=== PATIENT | male | born 1965 | race Caucasian/White ===

== ENCOUNTER 2016-09-02 08:07 | Observation (INO) | payer OTHER ==
[2016-09-02] MEDS ORDERED: SODIUM CHLORIDE 0.9% 500 ML IV STA (08:50)
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
[2016-09-02 09:16] LABS: Basophils # (A) 0.1 k/uL (0-0.2); Basophils % (A) 1 %; CH 33.4; CHCM 34.8; Eosinophils # (A) 0.2 k/uL (0-0.7); Eosinophils % (A) 3 %; HCT 38.4 % (39.0-53.0); HDW 2.34; Luc # (Auto) 0.14; Luc % (Auto) 2; Lymphocytes # (A) 2.2 k/uL (1.0-4.8); Lymphocytes % (A) 38 %; MCH 32.7 pg (25.0-35.0); MCHC 33.9 g/dL (31.0-37.0); MCV 96.3 fL (80.0-100.0); Mean Platelet Volume 8.3; Monocytes # (A) 0.4 k/uL (0-1.0); Monocytes % (A) 6 %; Neutrophils # (A) 2.9 k/uL (1.3-7.7); Neutrophils % (A) 50 %; RBC 3.99 m/uL (4.30-5.90); RDW 12.6 % (11.5-15.5); WBC 5.7 k/uL (3.8-10.6); WBC (Perox) 5.67
[2016-09-02 09:25] LABS: ALT 65 U/L (21-72); AST 55 U/L (17-59); Acetaminophen <10.0 ug/mL; Alcohol <10 mg/dL; Alkaline Phosphatase 104 U/L (38-126); Anion Gap 10 mmol/L; Blood Urea Nitrogen 28 mg/dL (9-20); Calcium 8.7 mg/dL (8.4-10.2); Carbon Dioxide 28 mmol/L (22-30); Chloride 110 mmol/L (98-107); Glucose 92 mg/dL (74-99); Non-African American GFR(MDRD) >60 (>60 ml/min/1.73 sqM); Salicylate <1.0 mg/dL; Sodium 148 mmol/L (137-145); Total Bilirubin 0.5 mg/dL (0.2-1.3); Total Protein 6.6 g/dL (6.3-8.2)
[2016-09-02] MEDS ORDERED: NALOXONE 0.4 MG/ML 1 ML VIAL IV STA (10:58)
[2016-09-02] MEDS ORDERED: NALOXONE 0.4 MG/ML 1 ML VIAL IV PRN (12:03)
[2016-09-02] MEDS ORDERED: ACETAMINOPHEN TAB 325 MG TAB PO PRN (12:03)
[2016-09-02] MEDS ORDERED: DOCUSATE 100 MG CAP PO PRN (12:06)
[2016-09-02] MEDS ORDERED: ALBUTEROL NEBULIZED 2.5 MG/3 ML INHALATION PRN (12:06)
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
[2016-09-02 19:47] VITALS: BMI 23.0
[2016-09-02] MEDS ORDERED: lamoTRIgine 25 MG TAB PO SCH (21:00)
[2016-09-03] MEDS ORDERED: hydrOXYzine HCL 50 MG/ML 1 ML VIAL IM PRN (00:45)
[2016-09-03 06:34] LABS: CHCM 33.5; HCT 40.7 % (39.0-53.0); HDW 2.41; HGB 13.6 gm/dL (13.0-17.5); Immature Gran Flag Marked; MCHC 33.3 g/dL (31.0-37.0); MCV 99.2 fL (80.0-100.0); Mean Platelet Volume 7.6; RBC 4.11 m/uL (4.30-5.90); RDW 12.7 % (11.5-15.5); WBC 9.1 k/uL (3.8-10.6)
[2016-09-03 06:46] LABS: ALT 56 U/L (21-72); AST 35 U/L (17-59); Alkaline Phosphatase 86 U/L (38-126); Anion Gap 7 mmol/L; Blood Urea Nitrogen 20 mg/dL (9-20); Calcium 8.5 mg/dL (8.4-10.2); Carbon Dioxide 29 mmol/L (22-30); Chloride 106 mmol/L (98-107); Glucose 131 mg/dL (74-99); Non-African American GFR(MDRD) >60 (>60 ml/min/1.73 sqM); Potassium 4.3 mmol/L (3.5-5.1); Sodium 142 mmol/L (137-145); Total Bilirubin 0.7 mg/dL (0.2-1.3)
[2016-09-03 07:47] VITALS: PULSE 86
[2016-09-03 08:11] LABS: Add Differential Manual Differential
[2016-09-03 08:19] LABS: Band Neutrophils % 41.5 %; Nucleated Red Blood Cells 0 /100 WBC (0-0); Total Cells Counted 200
[2016-09-03 08:24] LABS: Toxic Granulation Present; Toxic Vacuolation Present
[2016-09-03 08:25] LABS: Large Platelets Present
[2016-09-03] MEDS ORDERED: PANTOPRAZOLE 40 MG TABLET PO SCH (09:00)
--- NOTE | 2016-09-03 11:52 | P.DS ---
Providers Date of admission: 09/02/16 12:03 Expected date of discharge: 09/03/16 Attending physician: Johnny Maynard Consults: Psychiatry Primary care physician: oJhnny Maynard [facility] Course: Pablito is a 51-year-old white male, well known to me, who has a history of groin nerve entrapment. He has an extensive psychiatric history as well. He frequently obsesses about the pain in his groin, which she seen multiple surgeons for, and is unable to be alleviated. Pablito indicates he became very depressed about pain yesterday and took 12 Dexedrine, 12 Valium, and 12 morphine pills. In the emergency room. Given him naloxone, which greatly improved his sedation. He is able to speak with me at this time he denies any significant complaints at this time. Overnight on the floor he remained rather sedate until late in the evening. He then became slightly agitated was given some Vistaril to help him sleep. This morning he is still a bit somnolent, but answering questions. Psych services she was ready for him to be transferred now that he is medicalyl stable. Final diagnosis. Acute drug overdose, polysubstance. Bipolar depression exacerbation with suicidal ideation. Groin nerve entrapment. Chronic pain syndrome Patient Condition at Discharge: Fair Plan - Discharge Summary Discharge Medication List Albuterol Inhaler [Ventolin Hfa Inhaler] 2 puff INHALATION RT-Q6H PRN 12/22/15 [ History] Omeprazole [PriLOSEC] 20 mg PO AC-BID 12/22/15 [History] Docusate [Colace] 100 mg PO DAILY PRN #0 cap 03/22/16 [Rx] lamoTRIgine [LaMICtal] 50 mg PO HS #60 tab 03/27/16 [Rx] Acetaminophen Tab [Tylenol] 650 mg PO Q6HR PRN #0 tab 09/03/16 [Rx] Follow up Appointment(s)/Referral(s): Johnny Maynard MD [Primary Care Provider] - 1-2 days Sebastian Johnson MD [STAFF PHYSICIAN] - 09/04/16 Discharge Disposition: TRANSFER TO PSYCH HOSP/UNIT
[2016-09-03 11:55] VITALS: BP 102/55; RESP 14; TEMP 98.4
== END 2016-09-03 14:05 ==
LOC: EC 08:07 → 3OBS 12:03
PROVIDERS: ADMIT Family Medicine; ATTEND Family Medicine
DX: T43.622A Poisoning by amphetamines, intentional self-harm, initial encounter (principal); T42.4X2A Poisoning by benzodiazepines, intentional self-harm, initial encounter; T40.2X2A Poisoning by other opioids, intentional self-harm, initial encounter; G58.9 Mononeuropathy, unspecified; G89.4 Chronic pain syndrome; R45.1 Restlessness and agitation; F31.9 Bipolar disorder, unspecified; F90.9 Attention-deficit hyperactivity disorder, unspecified type; K21.9 Gastro-esophageal reflux disease without esophagitis; M79.7 Fibromyalgia; F17.200 Nicotine dependence, unspecified, uncomplicated; Z79.891 Long term (current) use of opiate analgesic; Z79.899 Other long term (current) drug therapy; Z88.1 Allergy status to other antibiotic agents; Z88.0 Allergy status to penicillin; Z88.2 Allergy status to sulfonamides; Z88.8 Allergy status to other drugs, medicaments and biological substances; Z65.3 Problems related to other legal circumstances
CPT/HCPCS: 99285; 96374; 96361 ×2; 36415; 94640; 93005; 80053 ×2; 84443; 85025 ×2; 80306; 83520 ×2; 80320; G0378 ×2; J2310

== ENCOUNTER 2016-09-03 10:16 | Inpatient (IN) | payer MEDICAID ==
[2016-09-03] MEDS ORDERED: MAG HYDROX/AL HYDROX/SIMETH 30 ML CUP PO PRN (15:28)
[2016-09-03] MEDS ORDERED: ACETAMINOPHEN TAB 325 MG TAB PO PRN (15:28)
[2016-09-03] MEDS ORDERED: ZIPRASIDONE 20 MG VIAL IM PRN (15:28)
[2016-09-03] MEDS ORDERED: MAGNESIUM HYDROXIDE 2,400 MG/10 ML CUP PO PRN (15:28)
[2016-09-03] MEDS: NICOTINE 21MG/24HR PATCH TRANSDERM SCH (16:00)
[2016-09-03 18:10] VITALS: BMI 23.3
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
[2016-09-04] MEDS: NICOTINE 21MG/24HR PATCH TRANSDERM SCH (07:58)
[2016-09-04] MEDS: PANTOPRAZOLE 40 MG TABLET PO SCH (07:58)
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
[2016-09-04] MEDS: ALBUTEROL INHALER 60 PUFF/8 GM INHALER INHALATION PRN ×2 (17:01→21:22)
[2016-09-04] MEDS ORDERED: OLANZapine ODT 5 MG TAB PO SCH (21:00)
[2016-09-04 21:40] LABS: Appearance,Urine Clear (Clear); Bilirubin,Urine Negative (Negative); Glucose,Urine (UA) 1+ (Negative); Ketones,Urine Negative (Negative); Leukocyte Esterase,Urine Negative (Negative); Nitrite,Urine Negative (Negative); PH, Urine 7.5 (5.0-8.0); Protein,Urine Negative (Negative); Specific Gravity,Urine 1.006 (1.001-1.035); UA Billing (MACRO vs. MICRO) CHEM; Urobilinogen,Urine <2.0 mg/dL (<2.0)
[2016-09-05 05:40] VITALS: BP 141/88; PULSE 103; RESP 20; TEMP 99.6
[2016-09-05] MEDS: NICOTINE 21MG/24HR PATCH TRANSDERM SCH (08:21)
[2016-09-05] MEDS: PANTOPRAZOLE 40 MG TABLET PO SCH (08:21)
[2016-09-05] MEDS ORDERED: buPROPion SR 100 MG TABLET.ER PO SCH (09:00)
[2016-09-05] MEDS: ALBUTEROL INHALER 60 PUFF/8 GM INHALER INHALATION PRN (09:30)
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
== END 2016-09-05 12:36 | disposition home or self-care (01) | DRG 897 ==
LOC: 3MHU 14:06
PROVIDERS: ADMIT Psychiatry & Neurology Psychiatry; ATTEND Psychiatry & Neurology Psychiatry
DX: F19.29 Other psychoactive substance dependence with unspecified psychoactive substance-induced disorder (principal); F22 Delusional disorders; F32.9 Major depressive disorder, single episode, unspecified; F41.0 Panic disorder [episodic paroxysmal anxiety]; F90.9 Attention-deficit hyperactivity disorder, unspecified type; F45.9 Somatoform disorder, unspecified; R25.3 Fasciculation; N48.89 Other specified disorders of penis; F41.9 Anxiety disorder, unspecified; K21.9 Gastro-esophageal reflux disease without esophagitis; R30.0 Dysuria; N50.819 Testicular pain, unspecified; G89.29 Other chronic pain; Z87.11 Personal history of peptic ulcer disease; Z79.899 Other long term (current) drug therapy; Z88.1 Allergy status to other antibiotic agents; Z88.0 Allergy status to penicillin; Z88.2 Allergy status to sulfonamides; Z88.8 Allergy status to other drugs, medicaments and biological substances; Z91.5 Personal history of self-harm; Z87.828 Personal history of other (healed) physical injury and trauma; Z87.438 Personal history of other diseases of male genital organs; Z56.0 Unemployment, unspecified; Z86.59 Personal history of other mental and behavioral disorders; Z76.5 Malingerer [conscious simulation]
CPT/HCPCS: 81003; 84439; 84443; 84481; 94640

== ENCOUNTER 2016-11-27 12:30 | Emergency (ER) | payer OTHER ==
[2016-11-27 13:10] VITALS: RESP 18
[2016-11-27] MEDS ORDERED: ACETAMINOPHEN TAB 500 MG TAB PO STA (13:21)
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
--- NOTE | 2016-11-27 13:40 | XR ---
EXAMINATION TYPE: XR chest 2V DATE OF EXAM: 11/27/2016 1:32 PM COMPARISON: 03/21/2016 TECHNIQUE: PA and lateral views submitted. HISTORY: Difficulty breathing FINDINGS: The lungs are clear and there is no pneumothorax, pleural effusion, or focal pneumonia. Mild hypert rophic change of the spine. Surgical clips in the abdomen noted. No overt failure IMPRESSION: 1. No acute process.
[2016-11-27 13:47] LABS: Appearance,Urine Clear (Clear); Bilirubin,Urine Negative (Negative); Glucose,Urine (UA) Negative (Negative); Ketones,Urine Negative (Negative); Leukocyte Esterase,Urine Negative (Negative); Nitrite,Urine Negative (Negative); Protein,Urine Negative (Negative); Specific Gravity,Urine 1.002 (1.001-1.035); UA Billing (MACRO vs. MICRO) CHEM; Urobilinogen,Urine <2.0 mg/dL (<2.0)
[2016-11-27 16:21] VITALS: BP 116/69; PULSE 87; TEMP 97.6
== END 2016-11-27 16:28 | disposition home or self-care (01) ==
LOC: EC 12:30
DX: F10.120 Alcohol abuse with intoxication, uncomplicated (principal); K21.9 Gastro-esophageal reflux disease without esophagitis; M79.7 Fibromyalgia; F90.9 Attention-deficit hyperactivity disorder, unspecified type; F31.9 Bipolar disorder, unspecified; Z79.891 Long term (current) use of opiate analgesic; Z79.899 Other long term (current) drug therapy; Z88.0 Allergy status to penicillin; Z88.1 Allergy status to other antibiotic agents; Z88.2 Allergy status to sulfonamides; Z88.8 Allergy status to other drugs, medicaments and biological substances
CPT/HCPCS: 71020; 80306; 81003; 82075; 93005; 99284

== ENCOUNTER 2017-09-02 03:00 | Emergency (ER) | payer OTHER ==
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
--- NOTE | 2017-09-02 07:41 | US ---
EXAMINATION TYPE: US venous doppler duplex LE RT DATE OF EXAM: 09/02/2017 7:33 AM COMPARISON: NONE CLINICAL HISTORY: Pain. SIDE PERFORMED: Right TECHNIQUE: The lower extremity deep venous system is examined utilizing real time linear array sonog rubi with graded compression, doppler sonography and color-flow sonography. VESSELS IMAGED: External Iliac Vein (EIV) Common Femoral Vein Deep Femoral Vein Greater Saphenous Vein * Femoral Vein Popliteal Vein Small Saphenous Vein * Proximal Calf Veins (* superficial vessels) Right Leg: Negative for DVT No popliteal fossa lesion is seen. IMPRESSION: THIS EXAMINATION IS NEGATIVE FOR DVT WITHIN THE RIGHT LEG.
[2017-09-02 07:49] VITALS: BP 139/90; PULSE 84; RESP 18; TEMP 98.2
== END 2017-09-02 10:13 | disposition home or self-care (01) ==
LOC: EC 03:00
DX: S51.812A Laceration without foreign body of left forearm, initial encounter (principal); F10.120 Alcohol abuse with intoxication, uncomplicated; M79.661 Pain in right lower leg; K21.9 Gastro-esophageal reflux disease without esophagitis; F32.9 Major depressive disorder, single episode, unspecified; F90.9 Attention-deficit hyperactivity disorder, unspecified type; F17.200 Nicotine dependence, unspecified, uncomplicated; Z79.899 Other long term (current) drug therapy; Z88.0 Allergy status to penicillin; Z88.1 Allergy status to other antibiotic agents; Z88.2 Allergy status to sulfonamides; Z88.8 Allergy status to other drugs, medicaments and biological substances; X78.9XXA Intentional self-harm by unspecified sharp object, initial encounter
CPT/HCPCS: 82075; 99285

== ENCOUNTER 2017-09-21 19:13 | Emergency (ER) | payer OTHER ==
[2017-09-21] MEDS ORDERED: SODIUM CHLORIDE 0.9% 2,000 ML IV ONE (19:42)
[2017-09-21] MEDS ORDERED: LORazepam 2 MG/ML INJ IM STA (19:42)
[2017-09-21] MEDS ORDERED: diphenhydrAMINE 50 MG/ML 1 ML VIAL IM STA (19:42)
[2017-09-21] MEDS ORDERED: HALOPERIDOL LACTATE 5 MG/ML 1 ML VIAL IM ONE (19:42)
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
[2017-09-21 20:37] LABS: Appearance,Urine Clear (Clear); Basophils % (A) 0 %; Bilirubin,Urine Negative (Negative); Blood,Urine Negative (Negative); Color,Urine Light Yellow; Eosinophils # (A) 0.1 k/uL (0-0.7); Eosinophils % (A) 1 %; Glucose,Urine (UA) Negative (Negative); HCT 45.4 % (39.0-53.0); HGB 15.4 gm/dL (13.0-17.5); Ketones,Urine Negative (Negative); Leukocyte Esterase,Urine Negative (Negative); Lymphocytes # (A) 2.5 k/uL (1.0-4.8); Lymphocytes % (A) 21 %; MCH 32.2 pg (25.0-35.0); MCHC 33.9 g/dL (31.0-37.0); MCV 94.9 fL (80.0-100.0); Monocytes # (A) 0.6 k/uL (0-1.0); Monocytes % (A) 5 %; Neutrophils # (A) 8.4 k/uL (1.3-7.7); Neutrophils % (A) 71 %; Nitrite,Urine Negative (Negative); PH, Urine 5.5 (5.0-8.0); Platelet Count 215 k/uL (150-450); Protein,Urine Negative (Negative); RBC 4.78 m/uL (4.30-5.90); RDW 12.9 % (11.5-15.5); Specific Gravity,Urine 1.009 (1.001-1.035); Urobilinogen,Urine <2.0 mg/dL (<2.0); WBC 11.8 k/uL (3.8-10.6)
[2017-09-21 20:46] LABS: Cocaine Screen,Urine Not Detected (NotDetected); Phencyclidine Screen,Urine Not Detected (NotDetected); Urn Cannabinoid Scrn Not Detected (NotDetected)
[2017-09-21 20:47] LABS: Amphetamine Screen,Urine Detected (NotDetected); Barbiturate Screen,Urine Not Detected (NotDetected); Benzodiazepines Screen,Urine Not Detected (NotDetected); Methadone Screen, Urine Not Detected (NotDetected); Opiate Screen,Urine Not Detected (NotDetected); Oxycodone Screen, Urine Not Detected (NotDetected); Tricyclic Antidepressant,Urine Not Detected (NotDetected)
[2017-09-21] MEDS ORDERED: LORazepam 2 MG/ML INJ IV STA (20:52)
[2017-09-21] MEDS ORDERED: diphenhydrAMINE 50 MG/ML 1 ML VIAL IVP STA (20:52)
[2017-09-21 20:54] LABS: Anion Gap 15 mmol/L; Blood Urea Nitrogen 22 mg/dL (9-20); Calcium 9.5 mg/dL (8.4-10.2); Carbon Dioxide 24 mmol/L (22-30); Chloride 103 mmol/L (98-107); Creatine Kinase 276 U/L (55-170); Glucose 98 mg/dL (74-99); Potassium 4.3 mmol/L (3.5-5.1); Sodium 142 mmol/L (137-145)
--- NOTE | 2017-09-21 21:56 | CT ---
EXAMINATION TYPE: CT brain wo con DATE OF EXAM: 09/21/2017 COMPARISON: 03/21/2016 HISTORY: ams, unable to obtain hx CT DLP: 1482.8 mGycm Automated exposure control for dose reduction was used. FINDINGS: Ventricles have normal size. There is no mass effect nor midline shift. There is no sign of intracran ial hemorrhage. The calvarium is intact. IMPRESSION: NEGATIVE CT SCAN OF THE BRAIN. NO CHANGE.
[2017-09-21 22:25] VITALS: RESP 16
[2017-09-22 01:44] VITALS: BP 151/80; PULSE 70; TEMP 98.2
== END 2017-09-22 02:11 | disposition home or self-care (01) ==
LOC: EC 19:13
DX: F19.10 Other psychoactive substance abuse, uncomplicated (principal); R41.82 Altered mental status, unspecified; S31.030A Puncture wound without foreign body of lower back and pelvis without penetration into retroperitoneum, initial encounter; S00.91XA Abrasion of unspecified part of head, initial encounter; F10.129 Alcohol abuse with intoxication, unspecified; F90.9 Attention-deficit hyperactivity disorder, unspecified type; R00.0 Tachycardia, unspecified; F41.9 Anxiety disorder, unspecified; F30.2 Manic episode, severe with psychotic symptoms; K21.9 Gastro-esophageal reflux disease without esophagitis; F17.200 Nicotine dependence, unspecified, uncomplicated; Z79.899 Other long term (current) drug therapy; Z88.0 Allergy status to penicillin; Z88.1 Allergy status to other antibiotic agents; Z88.8 Allergy status to other drugs, medicaments and biological substances; X58.XXXA Exposure to other specified factors, initial encounter; Z53.8 Procedure and treatment not carried out for other reasons
CPT/HCPCS: 82075; 51798 ×2; 36415; 80048; 84443; 82550; 85025; 81003; 80306; 70450; 99285; 96374; 96375; 96361; J2060; J1200

== ENCOUNTER 2017-10-21 15:51 | Emergency (ER) | payer OTHER ==
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
[2017-10-21 19:20] LABS: Amphetamine Screen,Urine Detected (NotDetected); Barbiturate Screen,Urine Not Detected (NotDetected); Benzodiazepines Screen,Urine Not Detected (NotDetected); Cocaine Screen,Urine Not Detected (NotDetected); Methadone Screen, Urine Not Detected (NotDetected); Opiate Screen,Urine Not Detected (NotDetected); Oxycodone Screen, Urine Not Detected (NotDetected); Phencyclidine Screen,Urine Not Detected (NotDetected); Tricyclic Antidepressant,Urine Not Detected (NotDetected); Urn Cannabinoid Scrn Not Detected (NotDetected)
[2017-10-21 23:05] VITALS: BP 145/91; PULSE 100; RESP 18; TEMP 97
== END 2017-10-21 23:04 | disposition home or self-care (01) ==
LOC: EC 15:51
DX: F32.9 Major depressive disorder, single episode, unspecified (principal); F19.10 Other psychoactive substance abuse, uncomplicated; F10.10 Alcohol abuse, uncomplicated; K21.9 Gastro-esophageal reflux disease without esophagitis; F17.200 Nicotine dependence, unspecified, uncomplicated; Z88.0 Allergy status to penicillin; Z88.1 Allergy status to other antibiotic agents; Z88.2 Allergy status to sulfonamides; Z88.8 Allergy status to other drugs, medicaments and biological substances; Z79.899 Other long term (current) drug therapy
CPT/HCPCS: 80306; 82075; 99285

== ENCOUNTER 2017-12-23 22:56 | Emergency (ER) | payer OTHER ==
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
[2017-12-24 00:20] LABS: Amphetamine Screen,Urine Detected (NotDetected); Barbiturate Screen,Urine Not Detected (NotDetected); Benzodiazepines Screen,Urine Detected (NotDetected); Cocaine Screen,Urine Not Detected (NotDetected); Methadone Screen, Urine Not Detected (NotDetected); Opiate Screen,Urine Not Detected (NotDetected); Oxycodone Screen, Urine Not Detected (NotDetected); Phencyclidine Screen,Urine Not Detected (NotDetected); Tricyclic Antidepressant,Urine Not Detected (NotDetected); Urn Cannabinoid Scrn Detected (NotDetected)
[2017-12-24] MEDS ORDERED: LORazepam 2 MG/ML INJ IM STA (00:36)
[2017-12-24] MEDS ORDERED: ZIPRASIDONE 20 MG VIAL IM STA (02:12)
[2017-12-24 12:25] LABS: Basophils % (A) 0 %; Eosinophils # (A) 0.2 k/uL (0-0.7); Eosinophils % (A) 2 %; HCT 46.7 % (39.0-53.0); HGB 15.9 gm/dL (13.0-17.5); Lymphocytes # (A) 2.1 k/uL (1.0-4.8); Lymphocytes % (A) 19 %; MCH 32.4 pg (25.0-35.0); MCV 95.5 fL (80.0-100.0); Mean Platelet Volume 7.4; Monocytes # (A) 0.6 k/uL (0-1.0); Monocytes % (A) 6 %; Neutrophils # (A) 7.9 k/uL (1.3-7.7); Neutrophils % (A) 72 %; Platelet Count 226 k/uL (150-450); RBC 4.89 m/uL (4.30-5.90); RDW 13.4 % (11.5-15.5)
[2017-12-24 12:25] LABS: Appearance,Urine Clear (Clear); Bilirubin,Urine Negative (Negative); Blood,Urine Negative (Negative); Color,Urine Colorless; Glucose,Urine (UA) Negative (Negative); Ketones,Urine Negative (Negative); Leukocyte Esterase,Urine Negative (Negative); Nitrite,Urine Negative (Negative); Protein,Urine Negative (Negative); Specific Gravity,Urine 1.003 (1.001-1.035); Urobilinogen,Urine <2.0 mg/dL (<2.0)
[2017-12-24 12:36] LABS: ALT 51 U/L (21-72); AST 39 U/L (17-59); Albumin 4.6 g/dL (3.5-5.0); Alkaline Phosphatase 116 U/L (38-126); Anion Gap 15 mmol/L; Blood Urea Nitrogen 18 mg/dL (9-20); Calcium 9.4 mg/dL (8.4-10.2); Carbon Dioxide 24 mmol/L (22-30); Chloride 106 mmol/L (98-107); Glucose 91 mg/dL (74-99); Potassium 4.7 mmol/L (3.5-5.1); Sodium 145 mmol/L (137-145); Total Bilirubin 0.4 mg/dL (0.2-1.3); Total Protein 7.1 g/dL (6.3-8.2)
[2017-12-24 19:12] VITALS: BP 152/81; PULSE 82; RESP 16; TEMP 99
== END 2017-12-24 20:00 ==
LOC: EC 22:56
DX: F32.9 Major depressive disorder, single episode, unspecified (principal); R45.851 Suicidal ideations; F10.120 Alcohol abuse with intoxication, uncomplicated; K21.9 Gastro-esophageal reflux disease without esophagitis; F90.9 Attention-deficit hyperactivity disorder, unspecified type; F17.200 Nicotine dependence, unspecified, uncomplicated; Z79.899 Other long term (current) drug therapy; Z88.0 Allergy status to penicillin; Z88.1 Allergy status to other antibiotic agents; Z88.2 Allergy status to sulfonamides; Z88.8 Allergy status to other drugs, medicaments and biological substances
CPT/HCPCS: 82075; 36415; 80053; 85025; 81003; 80306; 99285; 96372 ×2; J2060; J3486

== ENCOUNTER 2018-02-27 21:38 | Emergency (ER) | payer OTHER ==
[2018-02-27] MEDS ORDERED: LORazepam 2 MG/ML INJ IM STA ×2 (21:59→23:18)
[2018-02-27 23:11] LABS: Appearance,Urine Clear (Clear); Bilirubin,Urine Negative (Negative); Blood,Urine Negative (Negative); Color,Urine Colorless; Glucose,Urine (UA) Negative (Negative); Ketones,Urine Negative (Negative); Leukocyte Esterase,Urine Trace (Negative); Nitrite,Urine Negative (Negative); Protein,Urine Negative (Negative); RBC,Urine 1 /hpf (0-5); Specific Gravity,Urine 1.005 (1.001-1.035); Urobilinogen,Urine <2.0 mg/dL (<2.0); WBC,Urine 3 /hpf (0-5)
[2018-02-27 23:19] LABS: Amphetamine Screen,Urine Detected (NotDetected); Barbiturate Screen,Urine Not Detected (NotDetected); Benzodiazepines Screen,Urine Not Detected (NotDetected); Cocaine Screen,Urine Not Detected (NotDetected); Methadone Screen, Urine Not Detected (NotDetected); Opiate Screen,Urine Not Detected (NotDetected); Oxycodone Screen, Urine Not Detected (NotDetected); Phencyclidine Screen,Urine Not Detected (NotDetected); Tricyclic Antidepressant,Urine Not Detected (NotDetected); Urn Cannabinoid Scrn Detected (NotDetected)
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
--- NOTE | 2018-02-28 00:20 | CT ---
EXAMINATION TYPE: CT brain maeylin wo con DATE OF EXAM: 02/28/2018 COMPARISON: 09/21/2017 and 05/19/2016 HISTORY: Prior on synapse, ETOH< AMS CT DLP: 1661.50 mGycm Automated exposure control for dose reduction was used. TECHNIQUE: CT scan of the head and cervical spine are performed without contrast. FINDINGS: Ventricles and sulci appear normal. There is no mass effect nor midline shift. There is n o sign of intracranial hemorrhage. The calvarium is intact. The cervical vertebra have normal alignment. There is degenerative disc space 9 from C4 to C7 with sp urring of the endplates. Facet joints are intact. These all base is intact. IMPRESSION: Spondylotic changes in the cervical spine. No fracture. Negative CT scan of the brain. No change.
[2018-02-28] MEDS ORDERED: ZIPRASIDONE 20 MG VIAL IM STA (02:00)
[2018-02-28 02:23] VITALS: TEMP 98.1
[2018-02-28] MEDS ORDERED: LORazepam 2 MG/ML INJ IM STA (02:24)
[2018-02-28 08:11] VITALS: BP 126/82; PULSE 68; RESP 16
== END 2018-02-28 08:06 | disposition home or self-care (01) ==
LOC: EC 21:38
DX: F10.129 Alcohol abuse with intoxication, unspecified (principal); R41.82 Altered mental status, unspecified; M79.7 Fibromyalgia; K21.9 Gastro-esophageal reflux disease without esophagitis; N40.0 Benign prostatic hyperplasia without lower urinary tract symptoms; F90.9 Attention-deficit hyperactivity disorder, unspecified type; F31.9 Bipolar disorder, unspecified; F17.200 Nicotine dependence, unspecified, uncomplicated; Z79.899 Other long term (current) drug therapy; Z88.0 Allergy status to penicillin; Z88.2 Allergy status to sulfonamides; Z88.1 Allergy status to other antibiotic agents; Z88.8 Allergy status to other drugs, medicaments and biological substances; Z53.8 Procedure and treatment not carried out for other reasons
CPT/HCPCS: 82075; 81001; 80306; 72125; 70450; 99285; 96372 ×3; J2060 ×2

== ENCOUNTER 2018-02-28 17:26 | Emergency (ER) | payer OTHER ==
[2018-02-28 17:41] VITALS: RESP 18
--- NOTE | 2018-02-28 18:08 | XR ---
EXAMINATION TYPE: XR shoulder complete LT DATE OF EXAM: 02/28/2018 COMPARISON: NONE HISTORY: Pain TECHNIQUE: 4 views FINDINGS: I see no fracture nor dislocation. Joint spaces are normal. There are no pathologic calcifi cations. IMPRESSION: Negative left shoulder exam.
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
[2018-02-28 18:38] VITALS: BP 139/94; PULSE 97; TEMP 98.4
== END 2018-02-28 18:36 | disposition home or self-care (01) ==
LOC: EC 17:26
DX: S46.912A Strain of unspecified muscle, fascia and tendon at shoulder and upper arm level, left arm, initial encounter (principal); K21.9 Gastro-esophageal reflux disease without esophagitis; F90.9 Attention-deficit hyperactivity disorder, unspecified type; F17.200 Nicotine dependence, unspecified, uncomplicated; Z79.899 Other long term (current) drug therapy; Z88.0 Allergy status to penicillin; Z88.1 Allergy status to other antibiotic agents; Z88.2 Allergy status to sulfonamides; Z88.8 Allergy status to other drugs, medicaments and biological substances; X58.XXXA Exposure to other specified factors, initial encounter
CPT/HCPCS: 99283

== ENCOUNTER 2018-06-21 10:33 | Emergency (ER) | payer OTHER ==
[2018-06-21] MEDS ORDERED: SODIUM CHLORIDE 0.9% 1,000 ML IV STA (10:47)
[2018-06-21] MEDS ORDERED: KETOROLAC 30 MG/ML 1 ML VIAL IVP STA (10:48)
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
[2018-06-21 11:06] LABS: Basophils # (A) 0.1 k/uL (0-0.2); Basophils % (A) 1 %; Eosinophils # (A) 0.2 k/uL (0-0.7); Eosinophils % (A) 2 %; HCT 48.3 % (39.0-53.0); HGB 16.1 gm/dL (13.0-17.5); Lymphocytes # (A) 2.6 k/uL (1.0-4.8); Lymphocytes % (A) 22 %; MCH 32.6 pg (25.0-35.0); MCHC 33.4 g/dL (31.0-37.0); MCV 97.5 fL (80.0-100.0); Mean Platelet Volume 7.4; Monocytes # (A) 0.7 k/uL (0-1.0); Monocytes % (A) 6 %; Neutrophils # (A) 7.7 k/uL (1.3-7.7); Neutrophils % (A) 68 %; Platelet Count 201 k/uL (150-450); RBC 4.95 m/uL (4.30-5.90); RDW 13.2 % (11.5-15.5); WBC 11.4 k/uL (3.8-10.6)
[2018-06-21 11:13] LABS: ALT 61 U/L (21-72); AST 30 U/L (17-59); Albumin 4.2 g/dL (3.5-5.0); Alcohol <10 mg/dL; Alkaline Phosphatase 111 U/L (38-126); Anion Gap 9 mmol/L; Blood Urea Nitrogen 24 mg/dL (9-20); Calcium 9.2 mg/dL (8.4-10.2); Carbon Dioxide 22 mmol/L (22-30); Chloride 109 mmol/L (98-107); Glucose 105 mg/dL (74-99); Lipase 63 U/L (23-300); Phosphorus 2.7 mg/dL (2.5-4.5); Potassium 4.2 mmol/L (3.5-5.1); Sodium 140 mmol/L (137-145); Total Bilirubin 0.6 mg/dL (0.2-1.3); Total Protein 7.1 g/dL (6.3-8.2)
[2018-06-21 11:26] LABS: Appearance,Urine Clear (Clear); Bilirubin,Urine Negative (Negative); Blood,Urine Trace (Negative); Color,Urine Yellow; Glucose,Urine (UA) Trace (Negative); Hyaline Casts,Urine 3 /lpf (0-2); Ketones,Urine Negative (Negative); Leukocyte Esterase,Urine Negative (Negative); Mucus,Urine Occasional /hpf; Nitrite,Urine Negative (Negative); PH, Urine 5.5 (5.0-8.0); Protein,Urine Trace (Negative); RBC,Urine 1 /hpf (0-5); Specific Gravity,Urine 1.023 (1.001-1.035); Squamous Epithelial Cell,Urine <1 /hpf (0-4); WBC,Urine 2 /hpf (0-5)
[2018-06-21 11:29] LABS: Creatine Kinase 250 U/L (55-170)
[2018-06-21 11:41] LABS: Creatine Kinase MB 1.2 ng/mL (0.0-2.4); Troponin I <0.012 ng/mL (0.000-0.034)
--- NOTE | 2018-06-21 12:31 | CT ---
EXAMINATION TYPE: CT abdomen pelvis wo con DATE OF EXAM: 06/21/2018 COMPARISON: 12/15/2015 INDICATION: Right flank pain DLP: 736.1 mGycm, Automated exposure control for dose reduction was used. CONTRAST: 0 mL of Isovue 300. Study performed without Oral Contrast TECHNIQUE: Axial images were obtained from above the diaphragm to the pubic rami in the axial plane a t 5 mm thick sections. Reconstructed images are reviewed on the computer in the coronal plane. FINDINGS: Limited CT sections are obtained the lung bases. The lung bases are clear. CT ABDOMEN: Liver: Normal Spleen: Normal Pancreas: Normal Adrenal glands: The adrenal glands are normal. Gallbladder: Surgically absent Kidneys: No masses are evident. No hydronephrosis is present. No cysts are present. No renal stone s are evident. No hydroureter is identified. Aorta: Vascular calcification is within the aorta. Inferior vena cava: Normal. CT PELVIS: Loops of bowel within the abdomen and pelvis are normal. There are loops of bowel which are incom pletely distended or lack oral contrast limiting their evaluation. Appendix: Normal as visualized. Urinary bladder: Decompressed with limited evaluation. No suspicious calcifications evident. Genitourinary structures: Prostate is slightly prominent with calcification. Osseous structures: No suspicious lytic or sclerotic lesions. COMPARISON: Previous left hydronephrosis is not evident. Previous left renal stones are not identifie d. IMPRESSIONS: 1. No suspicious anomaly to account for hematuria.
[2018-06-21 13:10] VITALS: BP 117/86; PULSE 84; RESP 16; TEMP 98
== END 2018-06-21 13:09 | disposition home or self-care (01) ==
LOC: EC 10:33
DX: R10.31 Right lower quadrant pain (principal); R30.0 Dysuria; R11.2 Nausea with vomiting, unspecified; K21.9 Gastro-esophageal reflux disease without esophagitis; F90.9 Attention-deficit hyperactivity disorder, unspecified type; F17.200 Nicotine dependence, unspecified, uncomplicated; Z79.899 Other long term (current) drug therapy; Z88.0 Allergy status to penicillin; Z88.1 Allergy status to other antibiotic agents; Z88.8 Allergy status to other drugs, medicaments and biological substances; Z88.2 Allergy status to sulfonamides; Z90.49 Acquired absence of other specified parts of digestive tract
CPT/HCPCS: 36415; 93005; 80053; 82550; 82553; 83690; 83735; 84100; 84484; 85025; 81001; 87086; 74176; 99285; 96374; 96361; G0480; J1885; 80320

== ENCOUNTER 2018-08-17 16:10 | Emergency (ER) | payer OTHER ==
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
[2018-08-17 17:46] LABS: Amphetamine Screen,Urine Detected (NotDetected); Barbiturate Screen,Urine Not Detected (NotDetected); Benzodiazepines Screen,Urine Not Detected (NotDetected); Cocaine Screen,Urine Not Detected (NotDetected); Methadone Screen, Urine Not Detected (NotDetected); Opiate Screen,Urine Not Detected (NotDetected); Oxycodone Screen, Urine Not Detected (NotDetected); Phencyclidine Screen,Urine Not Detected (NotDetected); Tricyclic Antidepressant,Urine Not Detected (NotDetected); Urn Cannabinoid Scrn Detected (NotDetected)
[2018-08-17 18:30] VITALS: RESP 20
[2018-08-17 21:38] VITALS: TEMP 98.3
[2018-08-17 23:03] VITALS: BP 132/65; PULSE 81
== END 2018-08-17 23:01 | disposition home or self-care (01) ==
LOC: EC 16:10
DX: F31.9 Bipolar disorder, unspecified (principal); F10.129 Alcohol abuse with intoxication, unspecified; K21.9 Gastro-esophageal reflux disease without esophagitis; F90.9 Attention-deficit hyperactivity disorder, unspecified type; F17.200 Nicotine dependence, unspecified, uncomplicated; N40.0 Benign prostatic hyperplasia without lower urinary tract symptoms; Z79.899 Other long term (current) drug therapy; Z88.0 Allergy status to penicillin; Z88.1 Allergy status to other antibiotic agents; Z88.8 Allergy status to other drugs, medicaments and biological substances; Z88.2 Allergy status to sulfonamides; Z98.890 Other specified postprocedural states
CPT/HCPCS: 80306; 82075; 99284

== ENCOUNTER 2018-08-26 18:58 | Emergency (ER) | payer OTHER ==
[2018-08-26 19:45] VITALS: TEMP 98.5
[2018-08-26 23:21] LABS: Appearance,Urine Clear (Clear); Bilirubin,Urine Negative (Negative); Blood,Urine Trace (Negative); Color,Urine Yellow; Glucose,Urine (UA) Negative (Negative); Ketones,Urine Negative (Negative); Leukocyte Esterase,Urine Negative (Negative); Mucus,Urine Rare /hpf; Nitrite,Urine Negative (Negative); PH, Urine 5.5 (5.0-8.0); Protein,Urine Trace (Negative); RBC,Urine 3 /hpf (0-5); Specific Gravity,Urine 1.027 (1.001-1.035); Urobilinogen,Urine <2.0 mg/dL (<2.0); WBC,Urine 1 /hpf (0-5)
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
[2018-08-26 23:53] VITALS: BP 149/94; PULSE 87; RESP 18
== END 2018-08-26 23:51 | disposition home or self-care (01) ==
LOC: EC 18:58
DX: R30.0 Dysuria (principal); N48.89 Other specified disorders of penis; K21.9 Gastro-esophageal reflux disease without esophagitis; F90.9 Attention-deficit hyperactivity disorder, unspecified type; F17.200 Nicotine dependence, unspecified, uncomplicated; Z87.438 Personal history of other diseases of male genital organs; Z79.899 Other long term (current) drug therapy; Z88.0 Allergy status to penicillin; Z88.8 Allergy status to other drugs, medicaments and biological substances; Z88.2 Allergy status to sulfonamides; Z88.1 Allergy status to other antibiotic agents
CPT/HCPCS: 81001; 99283

== ENCOUNTER 2018-10-22 14:18 | Inpatient (IN) | payer MEDICAID, OTHER ==
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
[2018-10-22] MEDS ORDERED: LORazepam 1 MG TAB PO STA (15:02)
[2018-10-22 15:35] LABS: Amphetamine Screen,Urine Detected (NotDetected); Barbiturate Screen,Urine Not Detected (NotDetected); Benzodiazepines Screen,Urine Not Detected (NotDetected); Cocaine Screen,Urine Not Detected (NotDetected); Methadone Screen, Urine Not Detected (NotDetected); Opiate Screen,Urine Not Detected (NotDetected); Oxycodone Screen, Urine Not Detected (NotDetected); Phencyclidine Screen,Urine Not Detected (NotDetected); Tricyclic Antidepressant,Urine Not Detected (NotDetected); Urn Cannabinoid Scrn Detected (NotDetected)
[2018-10-22 23:20] VITALS: BMI 28.9
[2018-10-23] MEDS ORDERED: ZIPRASIDONE 20 MG VIAL IM PRN (00:30)
[2018-10-23] MEDS ORDERED: MAGNESIUM HYDROXIDE 2,400 MG/10 ML CUP PO PRN (00:30)
[2018-10-23] MEDS ORDERED: LORazepam 2 MG/ML INJ IM PRN (00:34)
[2018-10-23] MEDS: NICOTINE 14MG/24HR PATCH TRANSDERM SCH (06:16)
[2018-10-23] MEDS: LORazepam 1 MG TAB PO PRN (06:16)
[2018-10-23] MEDS: FAMOTIDINE 20 MG TAB PO SCH ×2 (06:17→20:18)
[2018-10-23] MEDS: ACETAMINOPHEN TAB 325 MG TAB PO PRN (06:17)
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
[2018-10-23] MEDS: ARIPiprazole 10 MG TAB PO SCH (09:59)
--- NOTE | 2018-10-23 13:54 | P.CONS ---
History of Present Illness - Reason for Consult Consult date: 10/23/18 Medical management of pain - History of Present Illness This is a 53-year-old white male patient well known to me. He has obsessive thoughts regarding testicular pain and often feels persecuted and spine on by others. He indicates he bought a half gallon of vodka and proceeded to drink some of it. His daughter then the had him transported to the emergency room to be evaluated after he started saying he wanted to kill himself. He's had numerous psychiatric admissions. Currently he is doing better and is now sober up. He tells me the right is having knee pain on the lateral edge of both knees. He denies any other complaints. Of note, since he's been on a change in psych meds over the past year, noticed a significant weight gain in him. This medication since been discontinued. Currently denies any significant symptomatology other than the wish not to be alive. Review of Systems All systems: negative Past Medical History Past Medical History: Fibromyalgia, GERD/Reflux, Prostate Disorder Additional Past Medical History / Comment(s): hiatal hernia, ADHD, nerve entrapment R groin , migraines, sinus problems, History of Any Multi-Drug Resistant Organisms: None Reported Past Surgical History: Cholecystectomy, Hernia Repair, Orthopedic Surgery Additional Past Surgical History / Comment(s): Umbilical hernia repair, colonoscopy, sigmoidoscopy, R leg surgery x2, ORIF jaw, ORIF L femur, glass removed from L eye, bilateral testicular surgery. Past Anesthesia/Blood Transfusion Reactions: No Reported Reaction Past Psychological History: ADD/ADHD, Bipolar, Depression Smoking Status: Current every day smoker Past Alcohol Use History: Daily Additional Past Alcohol Use History / Comment(s): Last alcoholic drink was in September of 2015 .Last drink was today 10/22/18 Past Drug Use History: Marijuana Additional Drug Use History / Comment(s): Pt. reports a past history of marijuana use. - Past Family History Father Family Medical History: CVA/TIA Mother Additional Family Medical History / Comment(s): Hiatal Hernia Brother(s) Family Medical History: Cancer, Musculoskeletal Disorder Additional Family Medical History / Comment(s): Heart Problems Sister(s) Family Medical History: Cancer Medications and Allergies Home Medications Medication Instructions Recorded Confirmed Type Ranitidine HCl [Zantac] 150 mg PO BID 06/21/18 10/22/18 History Dextroamphetamine Sulfate 5 mg PO DAILY 08/17/18 10/22/18 History [Dexedrine] Allergies Allergy/AdvReac Type Severity Reaction Status Date / Time amoxicillin trihydrate Allergy Unknown Verified 10/22/18 14:36 [From Augmentin] mirtazapine [From Remeron] Allergy Unknown Verified 10/22/18 14:36 Penicillins Allergy Unknown Verified 10/22/18 14:36 potassium clavulanate Allergy Unknown Verified 10/22/18 14:36 [From Augmentin] pregabalin [From Lyrica] Allergy Unknown Verified 10/22/18 14:36 sulfamethoxazole Allergy Anaphylaxis Verified 10/22/18 14:36 [From Bactrim] trimethoprim [From Bactrim] Allergy Anaphylaxis Verified 10/22/18 14:36 erythromycin lactobionate AdvReac Abdominal Verified 10/22/18 14:36 [From Erythrocin] Pain lurasidone [From Latuda] AdvReac Unknown Verified 10/22/18 23:01 olanzapine [From Zyprexa] AdvReac Unknown Verified 10/22/18 14:36 tamsulosin HCl [From Flomax] AdvReac very Verified 10/22/18 14:36 painful erection Physical Exam Vitals: Vital Signs Temp Pulse Pulse Pulse Resp BP BP 10/23/18 04:34 98.6 F 82 15 140/78 10/22/18 23:08 97.9 F 91 18 10/22/18 22:35 93 19 130/83 10/22/18 18:49 95 18 132/84 10/22/18 17:30 96 18 120/69 10/22/18 15:20 122/81 10/22/18 14:27 98.6 F 130 H 19 140/107 BP Pulse Ox 10/23/18 04:34 10/22/18 23:08 136/82 10/22/18 22:35 95 10/22/18 18:49 96 10/22/18 17:30 94 L 10/22/18 15:20 10/22/18 14:27 96 General: The patient is awake and alert, in no distress, and does not appear acutely ill. He appears heavier than he had last year. Eye: Pupils are equal, round and reactive to light, extra-ocular movements are intact; there is normal conjunctiva bilaterally. Ears, nose, mouth and throat: There are moist mucous membranes and no oral lesions. TM and canals were not examined Neck: The neck is supple, there is no thyromegaly, lymphadenopathy, tenderness or JVD. Cardiovascular: S1S2 is normal, There is a regular rate and rhythm. No murmur, rub or gallop is appreciated. Respiratory: Lungs are clear to auscultation bilaterally, respirations are non-labored, breath sounds are equal. Gastrointestinal: Soft, non-distended, non-tender abdomen without masses or organomegaly noted. There is no rebound or guarding present. Bowel sounds are unremarkable. Back: There is no tenderness to palpation in the midline. There is no obvious deformity. Musculoskeletal: Normal ROM, There is no pedal edema. There is no calf te nderness or swelling. No cords were appreciated. There is pain to palpation over the lateral knee area. Neurological: CN II-XII intact, there are no obvious motor or sensory deficits. Coordination appears grossly intact. Speech is normal. Skin: Skin is warm and dry and no rashes or lesions are noted. Psychiatric: Cooperative, appropriate mood & affect, normal judgment. Results Labs: Abnormal Lab Results - Last 24 Hours (Table) 10/22/18 Range/Units Unknown Ur Amphetamines Screen Detected H (NotDetected) U Marijuana (THC) Screen Detected H (NotDetected) Assessment and Plan (1) Pain, joint, knee, left Current Visit: Yes Status: Acute Code(s): M25.562 - PAIN IN LEFT KNEE SNOMED Code(s): 97005960 (2) Pain, joint, knee, right Current Visit: Yes Status: Acute Code(s): M25.561 - PAIN IN RIGHT KNEE SNOMED Code(s): 08841456 (3) Suicidal behavior Current Visit: No Status: Acute Code(s): R45.851 - SUICIDAL IDEATIONS SNOMED Code(s): 750482373 (4) Nerve entrapment syndrome, inguinal Current Visit: 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 We'll have staff continue to observe him. We'll await his treatment with psychiatry. I'll plan outpatient follow-up for the remaining medical conditions upon his discharge from here. Thank you very much for allowing us to participate in this patient's care. Please contact us should you have any questions.
[2018-10-23] MEDS: IBUPROFEN 800 MG TAB PO PRN (17:04)
[2018-10-23] MEDS: MAG HYDROX/AL HYDROX/SIMETH 30 ML CUP PO PRN (21:29)
[2018-10-24] MEDS: LORazepam 1 MG TAB PO PRN ×2 (01:46→20:54)
[2018-10-24] MEDS: NICOTINE 14MG/24HR PATCH TRANSDERM SCH (08:42)
[2018-10-24] MEDS: FAMOTIDINE 20 MG TAB PO SCH ×2 (08:42→20:54)
[2018-10-24] MEDS: ARIPiprazole 10 MG TAB PO SCH (08:42)
--- NOTE | 2018-10-24 09:38 | P.PN ---
Progress Note - Text Interval history: The patient is found in his room he follows me to an interview room. He indicates his mood is okay but he feels tired. He had difficulty with sleep last night staff reported 6 hours but he states he frequently woke. He reports he vomited last evening after dinner but he states is because he ate too much too fast. He has been compliant with medication. He states he surprised he hasn't had any problems with Abilify yet he is willing to continue the medication. He continues to describe symptoms of psychosis. He states at home he is watched by the neighbors. He states anytime he uses the bathroom when he comes out neighbors are pulling out of their driveway and leaving. He continues to feel that he has cameras placed throughout his house. Mental status exam: The patient is alert and fact hyperactive. He has spontaneous speech he has an expansive affect. He reports his mood is fine but he feels tired. He continues to describe paranoid and persecutory thoughts. Thought process can be disorganized at times. He is reporting no suicidal or homicidal thoughts. He has poor insight into how his current symptoms impact his overall function. He demonstrates no verbal or physical aggressiveness he demonstrates no involuntary repetitive movements. He frequently changes position while seated in the chair and looks about the room. He has a disheveled appearance he is dressed in hospital gowns. Eye contact is infrequent. Plan: The patient will continue on the Abilify we'll titrate the dose to 15 mg daily. We will encourage more participation in the milieu. We will monitor him for safety. Vital signs reviewed they're within normal limits. He requires continued psychiatric hospitalization for his acute symptoms of psychosis and thought disorganization.
[2018-10-24 12:14] LABS: ALT 48 U/L (21-72); AST 31 U/L (17-59); Albumin 4.1 g/dL (3.5-5.0); Alkaline Phosphatase 117 U/L (38-126); Anion Gap 8 mmol/L; Blood Urea Nitrogen 22 mg/dL (9-20); Calcium 9.5 mg/dL (8.4-10.2); Carbon Dioxide 27 mmol/L (22-30); Chloride 104 mmol/L (98-107); Cholesterol 175 mg/dL (<200); Glucose 108 mg/dL (74-99); HDL Cholesterol 28 mg/dL (40-60); LDL Cholesterol,Calculated 106 mg/dL (0-99); Potassium 5.2 mmol/L (3.5-5.1); Sodium 139 mmol/L (137-145); Total Bilirubin 0.7 mg/dL (0.2-1.3); Total Protein 6.8 g/dL (6.3-8.2); Triglycerides 206 mg/dL (<150)
[2018-10-24 13:02] LABS: Basophils # (A) 0.1 k/uL (0-0.2); Basophils % (A) 1 %; Eosinophils # (A) 0.2 k/uL (0-0.7); Eosinophils % (A) 2 %; HCT 48.9 % (39.0-53.0); HGB 15.9 gm/dL (13.0-17.5); Lymphocytes # (A) 2.4 k/uL (1.0-4.8); Lymphocytes % (A) 22 %; MCH 32.4 pg (25.0-35.0); MCHC 32.5 g/dL (31.0-37.0); Mean Platelet Volume 8.1; Monocytes # (A) 0.6 k/uL (0-1.0); Monocytes % (A) 6 %; Neutrophils # (A) 7.6 k/uL (1.3-7.7); Neutrophils % (A) 69 %; Platelet Count 197 k/uL (150-450); RBC 4.89 m/uL (4.30-5.90); RDW 13.3 % (11.5-15.5)
[2018-10-24] MEDS: MAG HYDROX/AL HYDROX/SIMETH 30 ML CUP PO PRN ×2 (14:21→17:39)
[2018-10-24] MEDS: ACETAMINOPHEN TAB 325 MG TAB PO PRN (18:51)
[2018-10-24] MEDS: MELATONIN 3 MG TABLET PO SCH (20:55)
[2018-10-24 22:57] LABS: Hemoglobin A1C 5.8 % (4.0-6.0)
--- NOTE | 2018-10-25 08:00 | P.PN ---
Progress Note - Text Interval history: The patient's found in his room he follows me to an interview room. He indicates that he is having some nausea. We discussed using Zofran. He does not feel that the Abilify is causing any side effect at this time. He is comfortable with us titrating the dose as indicated. He continues to describe thoughts that he is being monitored at home. He feels that there are cameras placed throughout his home. He has been attending only a few groups. Appetite has been impacted by nausea. He is showering. Mental status exam: The patient is alert he is directable. He is dressed in his own clothing. Hygiene is adequate. Speech is fluent spontaneous mildly pressured. He continues to look about the room during the interview. He frequently changes position while seated in the chair. He describes ongoing paranoid and persecutory thoughts. He reports feeling safe here. He is reporting no homicidal ideation. He is reporting no auditory or visual hallucinations. He demonstrates no verbal or physical aggressiveness. Insight and judgment impaired. Thought process is circumstantial tangential at times. Plan: The patient will continue on the Abilify the current doses 15 mg. We would likely titrate this to 20 mg in the next few days. We will monitor him for safety and encourage improved participation in the milieu. Vital signs reviewed. He requires continued psychiatric hospitalization for his acute symptoms of psychosis. Dr. Villa the patient's outpatient psychiatrist will provide coverage over the weekend.
[2018-10-25] MEDS: NICOTINE 14MG/24HR PATCH TRANSDERM SCH (08:37)
[2018-10-25] MEDS: ARIPiprazole 15 MG TAB PO SCH (08:37)
[2018-10-25] MEDS: FAMOTIDINE 20 MG TAB PO SCH ×2 (08:37→20:11)
[2018-10-25] MEDS: ONDANSETRON 4 MG TAB PO PRN ×2 (08:38→19:12)
[2018-10-25] MEDS: ACETAMINOPHEN TAB 325 MG TAB PO PRN (20:12)
[2018-10-25] MEDS: LORazepam 1 MG TAB PO PRN (21:49)
[2018-10-25] MEDS: MELATONIN 3 MG TABLET PO SCH (21:49)
[2018-10-26] MEDS: NICOTINE 14MG/24HR PATCH TRANSDERM SCH (08:15)
[2018-10-26] MEDS: ARIPiprazole 15 MG TAB PO SCH (08:15)
[2018-10-26] MEDS: FAMOTIDINE 20 MG TAB PO SCH ×2 (08:15→20:41)
[2018-10-26] MEDS: ONDANSETRON 4 MG TAB PO PRN (09:37)
[2018-10-26] MEDS: ACETAMINOPHEN TAB 325 MG TAB PO PRN ×2 (10:16→21:43)
[2018-10-26] MEDS ORDERED: BISACODYL 5 MG TABLET.DR PO PRN (11:11)
--- NOTE | 2018-10-26 11:21 | P.PN ---
Progress Note - Text Progress Note Date: 10/26/18 Interval history: Patient reports that he has been taking the Abilify. He feels like he is tolerating well. He does describe having some constipation and nausea. He describes that he has been vomiting some. He did take MOM this morning with minimal success per nursing staff. Patient seen in cross coverage today. Mental status exam: He is alert and cooperative with the interview he does not present with any agitation. He feels like the Abilify is making him calm her. He relays thoughts that perhaps some of the physical things he is going through now relate to an exam that he had back some time ago. He is somewhat somatically preoccupied. He does not verbalize any thoughts of harm to self or others. Plan: We'll maintain Abilify as current and continue to monitor for side effects we will see if his primary doctor can follow up regarding issues of nausea constipation and vomiting. We'll continue to cover this patient to the weekend.
[2018-10-26] MEDS ORDERED: BISACODYL 10 MG SUPP RECTAL PRN (12:29)
[2018-10-26] MEDS: POLYETHYLENE GLYCOL 3350 17 GM POWD.PACK PO SCH (12:56)
--- NOTE | 2018-10-26 13:42 | XR ---
EXAMINATION TYPE: XR abdomen 1V , 2 VIEWS DATE OF EXAM ORDERED: 10/26/2018 HISTORY: to assess for fecal stasis. COMPARISON: Previous study dated 12/18/2013. FINDINGS: Lung bases are clear. Within the abdomen, the abdominal gas pattern is within normal limits. There is no evidence of obstru ction or free air. There is been a previous cholecystectomy. The femoral heads are nonspherical. IMPRESSION: 1. NO ACUTE INCHES ABDOMINAL ABNORMALITY. 2. POSTSURGICAL CHANGE. 3. PLEASE CORRELATE FOR FEMOROACETABULAR IMPINGEMENT SYNDROME.
[2018-10-26] MEDS: MELATONIN 3 MG TABLET PO SCH (20:41)
[2018-10-26] MEDS: LORazepam 1 MG TAB PO PRN (20:43)
[2018-10-27] MEDS: ONDANSETRON 4 MG TAB PO PRN (04:28)
[2018-10-27] MEDS: LORazepam 1 MG TAB PO PRN ×2 (04:28→20:49)
[2018-10-27] MEDS: ARIPiprazole 15 MG TAB PO SCH (09:00)
[2018-10-27] MEDS: FAMOTIDINE 20 MG TAB PO SCH ×2 (09:00→20:48)
[2018-10-27] MEDS: POLYETHYLENE GLYCOL 3350 17 GM POWD.PACK PO SCH (09:03)
[2018-10-27] MEDS: NICOTINE 14MG/24HR PATCH TRANSDERM SCH (09:03)
[2018-10-27] MEDS ORDERED: MAGNESIUM CITRATE 296 ML BOTTLE PO ONE (11:30)
[2018-10-27] MEDS ORDERED: NA PHOS,M-B/NA PHOS,DI-BA 133 ML ENEMA RECTAL PRN (11:43)
--- NOTE | 2018-10-27 11:43 | P.PN ---
Subjective This is a 53-year-old white male patient well known to me. He has obsessive thoughts regarding testicular pain and often feels persecuted and spine on by others. He indicates he bought a half gallon of vodka and proceeded to drink some of it. His daughter then the had him transported to the emergency room to be evaluated after he started saying he wanted to kill himself. He's had numerous psychiatric admissions. Currently he is doing better and is now sober up. He tells me the right is having knee pain on the lateral edge of both knees. He denies any other complaints. Of note, since he's been on a change in psych meds over the past year, noticed a significant weight gain in him. This medication since been discontinued. Currently denies any significant symptomatology other than the wish not to be alive. 10/27/2018: I was asked to reevaluate the patient. Apparently he is been having small hard stool and only had one in the past 48 hours. Indicates is having some periumbilical pain. He has a known nerve entrapment of the right femoral nerve and due to his mental illness, frequently complains that this all started after his testicular surgery at [facility] many years ago. He is obsessed with his nerve entrapment in the pain from it. He also feels now that the constipation is from this. He denies any other complaints at this time. He denies any chest pains, pressures, or shortness of breath. MiraLAX was ordered which did produce small hard stool, rabbit pellet consistency. Abdominal x-ray showed no acute abnormality. Incidental finding of non-spherical femoral heads. Objective - Vital Signs Vital signs: Vital Signs Temp 98.3 F 10/27/18 04:27 Pulse 87 10/27/18 04:27 Resp 18 10/27/18 04:27 BP 153/89 10/27/18 04:27 Pulse Ox 95 10/22/18 22:35 Intake & Output 10/26/18 10/27/18 10/27/18 18:59 06:59 18:59 Weight 89.6 kg - Exam General: The patient is awake and alert, in no distress, and does not appear acutely ill. Neck: The neck is supple, there is no thyromegaly, lymphadenopathy, tenderness or JVD. Gastrointestinal: Soft, non-distended, minimally tender abdomen around the umbilicus without masses or organomegaly noted. There is no rebound or guarding present. Bowel sounds are unremarkable. Musculoskeletal: Normal ROM, no tenderness, There is no pedal edema. There is no calf tenderness or swelling. No cords were appreciated. Neurological: CN II-XII intact, there are no obvious motor or sensory deficits. Coordination appears grossly intact. Speech is normal. Skin: Skin is warm and dry and no rashes or lesions are noted. - Labs CBC & Chem 7: 10/24/18 10:36 10/24/18 10:36 Assessment and Plan (1) Pain, joint, knee, left Current Visit: Yes Status: Acute Code(s): M25.562 - PAIN IN LEFT KNEE SNOMED Code(s): 81078516 (2) Pain, joint, knee, right Current Visit: Yes Status: Acute Code(s): M25.561 - PAIN IN RIGHT KNEE SNOMED Code(s): 71850478 (3) Suicidal behavior Current Visit: No Status: Acute Code(s): R45.851 - SUICIDAL IDEATIONS SNOMED Code(s): 463383479 (4) Nerve entrapment syndrome, inguinal Current Visit: No Status: Chronic Code(s): G57.80 - OTHER SPECIFIED MONONEUROPATHIES OF UNSPECIFIED LOWER LIMB SNOMED Code(s): 087567944 (5) Constipation Current Visit: No Status: Acute Code(s): K59.00 - CONSTIPATION, UNSPECIFIED SNOMED Code(s): 82075242 Plan: He'll continue on the MiraLAX. We'll add magnesium citrate, one bottle now. Dulcolax suppositories as needed. We will evaluate outpatient his non-spherical femoral heads is a relate to his hips. Doesn't have a significant hip pain this time, but it's hard to ascertain based on his right femoral nerve entrapment pain and his obsession about his testicles. I'll reevaluate him if needed. Fleets enemas will also be ordered if needed. Please have staff contact me should he not have improvement in her resolution of his constipation. Continue ibuprofen for his no other aches and pains. We'll follow [facility] up outpatient after his discharge or come back and see him if needed.
--- NOTE | 2018-10-27 14:11 | P.PN ---
Progress Note - Text Progress Note Date: 10/27/18 Interval history: Patient is seen in cross coverage today in. He states that he has not been vomiting today. He is still not had a bowel movement. He has been seen in follow-up by Dr. Maynard. He has been trying to walk the halls some. His mood seems to be doing pretty well overall. He is tolerating the Abilify fine at this point in time. Mental status exam: He is alert and cooperative with the interview. He does not show any agitation. His mood overall seems to be pretty stable at current. He still does show some somatic preoccupation. He does not verbalize any thoughts of harm to self or others. Plan: Patient be maintained on current psychotropic medication regimen. Cont inue to monitor for any medication side effects and monitor his ongoing response to treatment.
[2018-10-27] MEDS: ACETAMINOPHEN TAB 325 MG TAB PO PRN (17:22)
[2018-10-27] MEDS: MELATONIN 3 MG TABLET PO SCH (20:48)
[2018-10-27] MEDS: IBUPROFEN 800 MG TAB PO PRN (20:49)
[2018-10-28] MEDS: IBUPROFEN 800 MG TAB PO PRN (05:53)
[2018-10-28] MEDS: ARIPiprazole 15 MG TAB PO SCH (09:01)
[2018-10-28] MEDS: FAMOTIDINE 20 MG TAB PO SCH ×2 (09:01→21:03)
[2018-10-28] MEDS: POLYETHYLENE GLYCOL 3350 17 GM POWD.PACK PO SCH (09:02)
[2018-10-28] MEDS: NICOTINE 14MG/24HR PATCH TRANSDERM SCH (09:02)
--- NOTE | 2018-10-28 09:53 | P.PN ---
Progress Note - Text Interval history: The patient is found in his room he follows me to an interview room. He asked when he is able to be discharged. He lacks insight as to why he was admitted other than he knew he was drinking. He has been tolerating the Abilify. He has been having some alternating constipation and diarrhea. He was seen by his guide again. Abdominal x-ray was performed which was negative for any acute abdominal process. He continues to verbalize somatic delusional thoughts that have been present for numerous years. He feels that he is more calm with the Abilify and has no objection with us continuing it or titrating that. He verbalized a willingness to use the Abilify maintena. We will explore whether or not his insurance will cover it as an outpatient and whether his outpatient psychiatrist's office can manage that as well. Mental status exam: The patient is alert he is a disheveled appearance hygiene is adequate. He is dressed in hospital gowns. He has not shaved. Eye contact is intermittent. He is seated in the chair more calmly than prior visits. He reports no suicidal or homicidal thoughts. He is endorsing no auditory or visual hallucinations. He continues to describe somatic delusional thoughts focused on his genitals. He continues to feel that he is monitored when he is home but feels safe here in the hospital. He demonstrates no verbal or physical aggressiveness. Insight and judgment limited. He demonstrates no abnormal involuntary movements. Plan: The patient will continue on the Abilify we'll titrate the dose to 20 mg daily. We will explore the possibility of using Abilify maintena for him as an outpatient. He is encouraged to participate in the milieu although he tends to isolate in his room. We will discuss his progress during treatment team meeting social work will touch base with the patient's sister who reportedly visited him over the weekend. She seems to be his closest support. Vital signs reviewed.
[2018-10-28] MEDS: LORazepam 1 MG TAB PO PRN (21:03)
[2018-10-28] MEDS: MELATONIN 3 MG TABLET PO SCH (21:03)
[2018-10-28] MEDS: ACETAMINOPHEN TAB 325 MG TAB PO PRN (22:47)
[2018-10-29] MEDS: IBUPROFEN 800 MG TAB PO PRN (01:11)
[2018-10-29 05:13] VITALS: TEMP 98.5
[2018-10-29] MEDS: NICOTINE 14MG/24HR PATCH TRANSDERM SCH (09:01)
[2018-10-29] MEDS: FAMOTIDINE 20 MG TAB PO SCH (09:01)
[2018-10-29] MEDS: POLYETHYLENE GLYCOL 3350 17 GM POWD.PACK PO SCH (09:01)
[2018-10-29] MEDS ORDERED: ARIPiprazole IM SYRINGE 400 MG (NO CHARGE) IM ONE (10:01)
--- NOTE | 2018-10-29 10:12 | P.DS ---
Providers Date of admission: 10/22/18 22:18 Expected date of discharge: 10/29/18 Attending physician: Isaías Villavicencio Consults: 10/23/18 00:30 Consult Physician Routine Consulting Provider: Johnny Maynard Consult Reason/Comments: H&P and medical Do you want consulting provider notified?: Yes Primary care physician: Johnny Maynard - Discharge Diagnosis(es) (1) Schizophrenia Current Visit: Yes Status: Acute Priority: High Hospital Course: Brief summary of admission note: This patient is a 53-year-old single male who was admitted to the mental health unit through the emergency room for acute symptoms of psychosis. The patient was petition noting he had suicidal ideation. He also described a chronic delusion that he is known to have regarding his genitals. He was concerned that individuals were monitoring him he was convinced that cameras had been placed in his home. He states that people were watching him is he lies on the couch at home and people were trying to convince him to be left-handed. He described numerous somatic delusions. For full details please refer to my psychiatric evaluation dated 10/23/2018. Summary of hospital course: The patient was admitted to the mental health unit he signed in voluntarily. We reviewed his presenting symptoms and treatment options. He was agreeable to letting me start oral Abilify. The dosage was titrated to 20 mg daily during the course of the hospitalization. He is also agreeable to using Abilify maintena and we will begin that first injection today. He for the most part did not attend groups. He did participate in meals he showered he was easily directed. He demonstrated no verbal or physical aggressiveness. He was seen by internal medicine for routine history and physical exam. Social work met with the patient to complete a psychosocial assessment and for discharge planning purposes. The patient's sister participated in a support meeting yesterday involving the social services technician. It is documented that his sister feels that he has returned to baseline function and is appropriate for discharge back to outpatient care. The patient reports no suicidal thoughts he feels safe to return home. He verbalizes some appropriate future oriented thinking. Mental status exam: The patient is alert he is dressed in his own clothing. Hygiene grooming adequate. Speech is fluent spontaneous nonpressured. He reports no suicidal or homicidal ideation intent or plan. He endorses no hopeless thinking. He reports his mood is "good". Affect is bright. His thought process is more organized compared to his presentation at admission. He does demonstrate some circumstantial thinking he demonstrates no tangential thinking loose associations or flight of ideas morning. His acute psychosis is improved. He continues to have chronic delusional thoughts that are known to persist at baseline. He demonstrates no verbal or physical aggressiveness he demonstrates no involuntary repetitive movements. He is oriented to person place and date. He denies experiencing any auditory or visual hallucinations. Impressions 1. Schizophrenia, rule out schizoaffective disorder, alcohol use disorder, cannabis use disorder Plan: The patient will be discharged mental health unit today to return to his own residence. He will continue working with Dr. Villa for outpatient psychiatric care. Social work will confirm his follow-up appointment. The patient will continue on Abilify 20 mg daily for 14 days then he may discontinue the oral dose. He will receive his first Abilify maintena injection today of 400 mg. The next one will be due in one month. He does not wish to participate in inpatient chemical dependency treatment. He is instructed to abstain from any use of marijuana or alcohol at these substances could exacerbate his psychosis and also elevate his safety risk. He is advised to discontinue any stimulant medication. At this time there is no imminent safety risk he is appropriate for transition to outpatient care. He is instructed to present to the hospital with any acute safety concerns. Patient Condition at Discharge: Stable Plan - Discharge Summary Discharge Rx Participant: No New Discharge Prescriptions: New ARIPiprazole [Abilify] 20 mg PO DAILY #14 tab ARIPiprazole IM [Abilify Maintena] 400 mg IM ONCE #1 vial Nicotine 14Mg/24Hr Patch [Habitrol] 1 patch TRANSDERM DAILY #14 patch Melatonin 3 mg PO HS #30 tablet Continue Ranitidine HCl [Zantac] 150 mg PO BID Discontinued Dextroamphetamine Sulfate [Dexedrine] 5 mg PO DAILY Discharge Medication List Ranitidine HCl [Zantac] 150 mg PO BID 06/21/18 [History] ARIPiprazole IM [Abilify Maintena] 400 mg IM ONCE #1 vial 10/29/18 [Rx] ARIPiprazole [Abilify] 20 mg PO DAILY #14 tab 10/29/18 [Rx] Melatonin 3 mg PO HS #30 tablet 10/29/18 [Rx] Nicotine 14Mg/24Hr Patch [Habitrol] 1 patch TRANSDERM DAILY #14 patch 10/29/18 [Rx] Follow up Appointment(s)/Referral(s): [facility] [Outside] - 11/12/18 9:40 am (Dr Villa ) Johnny Maynard MD [Primary Care Provider] - 1-2 days Activity/Diet/Wound Care/Special Instructions: Activity and diet as tolerated. Avoid the use of street drugs and alcohol. Take all medications as prescribe. When your are in need of refills on your medications please contact your medical provider and/or outpatient psychiatrist to obtain refills. Please go to scheduled outpatient appointment for aftercare treatment. If symptoms return or become worse, call the crisis line at [phone] and/or go to the nearest emergency room for evaluation.
[2018-10-29 12:23] VITALS: BP 135/88; PULSE 83; RESP 20
== END 2018-10-29 12:28 | disposition home or self-care (01) | DRG 885 ==
LOC: EC 14:18 → 3MHU 22:18
PROVIDERS: ADMIT Psychiatry & Neurology Psychiatry; ATTEND Psychiatry & Neurology Psychiatry
DX: F20.9 Schizophrenia, unspecified (principal); R45.851 Suicidal ideations; F10.129 Alcohol abuse with intoxication, unspecified; F17.210 Nicotine dependence, cigarettes, uncomplicated; F31.9 Bipolar disorder, unspecified; F90.9 Attention-deficit hyperactivity disorder, unspecified type; G57.80 Other specified mononeuropathies of unspecified lower limb; K21.9 Gastro-esophageal reflux disease without esophagitis; K59.00 Constipation, unspecified; M79.7 Fibromyalgia; N40.0 Benign prostatic hyperplasia without lower urinary tract symptoms; N50.819 Testicular pain, unspecified; Z79.899 Other long term (current) drug therapy; Z91.5 Personal history of self-harm; F12.10 Cannabis abuse, uncomplicated; Z82.3 Family history of stroke; Z82.49 Family history of ischemic heart disease and other diseases of the circulatory system; Z80.9 Family history of malignant neoplasm, unspecified; Z82.69 Family history of other diseases of the musculoskeletal system and connective tissue; G43.909 Migraine, unspecified, not intractable, without status migrainosus; Z88.0 Allergy status to penicillin; Z88.2 Allergy status to sulfonamides; Z88.8 Allergy status to other drugs, medicaments and biological substances; K44.9 Diaphragmatic hernia without obstruction or gangrene
CPT/HCPCS: 74018; 80053; 80061; 80306; 82075; 83036; 84443; 85025; 99285

== ENCOUNTER → 2018-11-12 | Outpatient (CLI) | payer OTHER ==
[2018-11-12 18:03] LABS: Basophils # (A) 0.1 k/uL (0-0.2); Basophils % (A) 1 %; Eosinophils # (A) 0.2 k/uL (0-0.7); Eosinophils % (A) 2 %; HGB 14.8 gm/dL (13.0-17.5); Lymphocytes # (A) 3.1 k/uL (1.0-4.8); Lymphocytes % (A) 32 %; MCH 32.2 pg (25.0-35.0); MCV 97.7 fL (80.0-100.0); Mean Platelet Volume 7.3; Monocytes # (A) 0.5 k/uL (0-1.0); Monocytes % (A) 5 %; Neutrophils # (A) 5.5 k/uL (1.3-7.7); Neutrophils % (A) 58 %; Platelet Count 239 k/uL (150-450); RDW 13.5 % (11.5-15.5); WBC 9.6 k/uL (3.8-10.6)
[2018-11-13 00:56] LABS: Anion Gap 8.8 mmol/L (4.00-12.00); Calcium 9.6 mg/dL (8.7-10.3); Carbon Dioxide 23.2 mmol/L (21.6-31.8); Potassium 4.7 mmol/L (3.5-5.5)
== END | disposition home or self-care (01) ==
LOC: LABWHC1 16:56
PROVIDERS: ATTEND Family Medicine
DX: F31.30 Bipolar disorder, current episode depressed, mild or moderate severity, unspecified (principal); R03.0 Elevated blood-pressure reading, without diagnosis of hypertension; K02.9 Dental caries, unspecified; Z82.0 Family history of epilepsy and other diseases of the nervous system
CPT/HCPCS: 36415; 80048; 85025

== ENCOUNTER 2019-01-03 12:23 | Observation (INO) | payer OTHER ==
[2019-01-03] MEDS ORDERED: ASPIRIN 81 MG PO STA (13:06)
[2019-01-03] MEDS ORDERED: NITROGLYCERIN OINT 1 INCH/GM PACKET TOPICAL STA (13:06)
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
[2019-01-03 13:49] LABS: ALT 33 U/L (21-72); AST 27 U/L (17-59); African American GFR (CKD) >90 (>60 ml/min/1.73 sqM); Albumin 4.5 g/dL (3.5-5.0); Alkaline Phosphatase 119 U/L (38-126); Anion Gap 9 mmol/L; Blood Urea Nitrogen 19 mg/dL (9-20); Calcium 9.3 mg/dL (8.4-10.2); Carbon Dioxide 21 mmol/L (22-30); Chloride 108 mmol/L (98-107); Glucose 111 mg/dL (74-99); Magnesium 1.8 mg/dL (1.6-2.3); Potassium 4.4 mmol/L (3.5-5.1); Sodium 138 mmol/L (137-145); Total Bilirubin 0.8 mg/dL (0.2-1.3); Total Protein 7.3 g/dL (6.3-8.2)
[2019-01-03 13:54] LABS: Appearance,Urine Clear (Clear); Bilirubin,Urine Negative (Negative); Blood,Urine Small (Negative); Color,Urine Yellow; Glucose,Urine (UA) Negative (Negative); Ketones,Urine Negative (Negative); Leukocyte Esterase,Urine Negative (Negative); Mucus,Urine Rare /hpf; Nitrite,Urine Negative (Negative); Protein,Urine Negative (Negative); RBC,Urine 4 /hpf (0-5); Urobilinogen,Urine <2.0 mg/dL (<2.0); WBC,Urine 3 /hpf (0-5)
[2019-01-03 13:55] LABS: D-Dimer 0.24 mg/L FEU (<0.60); INR 0.9 (<1.2); Partial Thromboplastin Time 26.4 sec (22.0-30.0)
--- NOTE | 2019-01-03 13:55 | XR ---
EXAMINATION TYPE: XR chest 2V DATE OF EXAM: 01/03/2019 COMPARISON: 11/27/2016 HISTORY: Chest pain TECHNIQUE: Frontal and lateral views of the chest are obtained. FINDINGS: There is no focal air space opacity, pleural effusion, or pneumothorax seen. The cardiac silhouette size is within normal limits. The osseous structures are intact. Cholecystectomy clips a re noted. Mild multilevel degenerative changes of the spine are seen. IMPRESSION: No acute cardiopulmonary process.
[2019-01-03 13:57] LABS: Basophils # (A) 0.1 k/uL (0-0.2); Basophils % (A) 1 %; Eosinophils # (A) 0.2 k/uL (0-0.7); Eosinophils % (A) 2 %; HCT 45.7 % (39.0-53.0); HGB 15.4 gm/dL (13.0-17.5); Lymphocytes % (A) 24 %; MCH 32.2 pg (25.0-35.0); MCHC 33.8 g/dL (31.0-37.0); MCV 95.3 fL (80.0-100.0); Mean Platelet Volume 8.3; Monocytes # (A) 0.5 k/uL (0-1.0); Monocytes % (A) 6 %; Neutrophils # (A) 5.4 k/uL (1.3-7.7); Neutrophils % (A) 66 %; Platelet Count 225 k/uL (150-450); RBC 4.79 m/uL (4.30-5.90); RDW 13.9 % (11.5-15.5); WBC 8.1 k/uL (3.8-10.6)
[2019-01-03] MEDS ORDERED: KETOROLAC 60 MG/2 ML VIAL IVP STA (15:05)
[2019-01-03] MEDS ORDERED: KETOROLAC 30 MG/ML 1 ML VIAL IVP STA (15:07)
[2019-01-03] MEDS ORDERED: NITROGLYCERIN SL TABS 0.4 MG TAB SUBLINGUAL PRN (15:47)
[2019-01-03 17:33] VITALS: BMI 29.2
[2019-01-03] MEDS: NITROGLYCERIN OINT 1 INCH/GM PACKET TOPICAL SCH ×2 (19:13→23:26)
[2019-01-03] MEDS ORDERED: METHOCARBAMOL 500 MG TAB PO PRN (19:31)
[2019-01-03] MEDS ORDERED: ALBUTEROL NEBULIZED 2.5 MG/3 ML INHALATION PRN (19:31)
[2019-01-03] MEDS ORDERED: ACETAMINOPHEN TAB 325 MG TAB PO STA (20:10)
[2019-01-03] MEDS: FAMOTIDINE 20 MG TAB PO SCH (20:27)
[2019-01-03] MEDS ORDERED: MELATONIN 3 MG TABLET PO SCH (21:00)
[2019-01-04 02:22] LABS: Cholesterol 184 mg/dL (<200); HDL Cholesterol 29 mg/dL (40-60); LDL Cholesterol,Calculated 136 mg/dL (0-99); Triglycerides 94 mg/dL (<150)
[2019-01-04 03:56] VITALS: RESP 18
[2019-01-04 07:19] VITALS: BP 135/75; PULSE 52; TEMP 98.4
[2019-01-04] MEDS: FAMOTIDINE 20 MG TAB PO SCH (08:08)
[2019-01-04] MEDS ORDERED: ASPIRIN 325 MG TAB PO SCH (09:00)
--- NOTE | 2019-01-04 09:15 | CONS ---
CONSULTATION This is a 54-year-old gentleman with a known history of alcoholism, which he says he has stopped for the last 3 months, but has still been sneaking some drinks here and there. He also has underlying bipolar disorder. He came to the emergency room complaining of discomfort in the left lateral aspect of his abdomen, more so in the lumbar area. He absolutely denies that he ever had any chest pain at the time of my evaluation. He says this pain has been going on and off for nearly a month and a half. He knows he fell and hurt himself there, but he thought the pain had gone but comes back again. He has no chest discomfort to suggest angina. He is reasonably active person. He cuts lawns. He has no chest pain at the time of my evaluation and his pain on arrival according to him was in the left lateral aspect of the abdomen and the iliac crest area. His troponins are normal. His EKG is unremarkable. He is resting comfortably without symptoms. PAST MEDICAL HISTORY: Remarkable for some mental health issues, bipolar disorder, fibromyalgia, bronchial asthma, also has history of alcoholism, which he says he has quit. The patient also has had some issues with his prostate. Details are unavailable. MEDICATIONS: At home include Zantac, albuterol inhaler, Robaxin. He also takes some melatonin. ALLERGIES: HE IS ALLERGIC TO BACTRIM, ZYPREXA, ABILIFY, AND REMERON. There is no history of any previous stress test. He is a fairly active person and cuts grass and has not had any chest pain with physical activity. REVIEW OF SYSTEMS: Remarkable for some mental health issues. He denies any hematemesis, melena, genitourinary symptoms, fever with chills or cough with expectoration. He used to drink alcohol daily but has stopped for 3 months. He smokes at least a half to 1 pack daily. Please refer to the chart for other information. PHYSICAL EXAMINATION: Blood pressure is 130/70, pulse rate is 68 per minute regular. HEENT unremarkable. Fundus was not examined by me. Neck is supple. No JVD. I do not hear a carotid bruit. There is no thyromegaly. Heart exam reveals S1, S2 without rub, murmur or gallop. Lungs are clear. Abdomen is soft, nontender. Lower extremities reveal normal pulses. No edema. Central nervous system is normal. EKG revealed sinus mechanism, sinus bradycardia. No acute changes. Chest x-ray was unremarkable. IMPRESSION: 1. Atypical musculoskeletal pain in the left lateral aspect of his abdomen. Patient really did not have chest pain. 2. History of alcoholism. 3. History of some mental health issues. RECOMMENDATIONS: I would recommend that patient can be discharged today and follow up with his primary care physician and when his left iliac crest pain is resolved, he can have a stress test as an outpatient. Thank you very much for the consult. MMODL / IJN: [id number] /
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
--- NOTE | 2019-01-04 11:25 | P.DS ---
Providers Date of admission: 01/03/19 15:52 Expected date of discharge: 01/04/19 Attending physician: Johnny Maynard Consults: 01/03/19 15:47 Consult Physician Urgent Consulting Provider: [facility] Consult Reason/Comments: Chest pain Do you want consulting provider notified?: Yes Primary care physician: Johnny Maynard - Discharge Diagnosis(es) (1) Flank pain Current Visit: Yes Status: Acute (2) Chest pain Current Visit: Yes Status: Acute (3) Mixed hyperlipidemia Current Visit: Yes Status: Acute Hospital Course: This is a 53-year-old white male well-known to me for his multiple psychiatric issues and obsessive-compulsive disorder. Apparently came in the emergency room at the best of his family, admitted complaining of left flank and chest wall pain for several days. He reports he fallen onto his right side approximately on Sunday. Initial ER workup was negative including a single troponin. This felt he needed to be admitted for further observation. This morning he denies any chest pains pressures or shortness of breath. Indicates his left flank as the area he has pain. Serial troponins were negative 3. He was found to have mild hyperlipidemia with an LDL of 136. He has had a significant weight gain over the past year, most likely due to her psych meds. We'll plan on low-fat low-cholesterol diet and possibly statin in the near future. Cardiology seen him also felt this pain was atypical for cardiac, recommended discharge. Plan - Discharge Summary New Discharge Prescriptions: Continue Ranitidine HCl [Zantac] 150 mg PO BID Melatonin 3 mg PO HS #30 tablet Methocarbamol [Robaxin] 500 mg PO TID PRN PRN Reason: Pain Albuterol Inhaler [Ventolin Hfa Inhaler] 1 - 2 puff INHALATION RT-Q6H PRN PRN Reason: Shortness Of Breath Discharge Medication List Ranitidine HCl [Zantac] 150 mg PO BID 06/21/18 [History] Melatonin 3 mg PO HS #30 tablet 10/29/18 [Rx] Albuterol Inhaler [Ventolin Hfa Inhaler] 1 - 2 puff INHALATION RT-Q6H PRN 01/03/19 [History] Methocarbamol [Robaxin] 500 mg PO TID PRN 01/03/19 [History] Follow up Appointment(s)/Referral(s): Johnny Maynard MD [Primary Care Provider] - 1-2 days Discharge Disposition: HOME SELF-CARE
== END 2019-01-04 11:50 | disposition home or self-care (01) ==
LOC: EC 12:23 → 1SOBS 15:52
PROVIDERS: ADMIT Family Medicine; ATTEND Family Medicine
DX: R07.89 Other chest pain (principal); R10.9 Unspecified abdominal pain; M79.7 Fibromyalgia; N40.0 Benign prostatic hyperplasia without lower urinary tract symptoms; F90.9 Attention-deficit hyperactivity disorder, unspecified type; K59.00 Constipation, unspecified; K44.9 Diaphragmatic hernia without obstruction or gangrene; G43.909 Migraine, unspecified, not intractable, without status migrainosus; K21.9 Gastro-esophageal reflux disease without esophagitis; J45.909 Unspecified asthma, uncomplicated; F10.20 Alcohol dependence, uncomplicated; F31.9 Bipolar disorder, unspecified; F17.210 Nicotine dependence, cigarettes, uncomplicated; F42.9 Obsessive-compulsive disorder, unspecified; E78.2 Mixed hyperlipidemia; E66.9 Obesity, unspecified; Z68.29 Body mass index [BMI] 29.0-29.9, adult; W19.XXXA Unspecified fall, initial encounter; Z79.899 Other long term (current) drug therapy; Z88.0 Allergy status to penicillin; Z88.1 Allergy status to other antibiotic agents; Z88.2 Allergy status to sulfonamides; Z88.6 Allergy status to analgesic agent; Z88.8 Allergy status to other drugs, medicaments and biological substances; Z87.820 Personal history of traumatic brain injury; Z87.81 Personal history of (healed) traumatic fracture; Z90.49 Acquired absence of other specified parts of digestive tract; Z82.49 Family history of ischemic heart disease and other diseases of the circulatory system; Z83.79 Family history of other diseases of the digestive system; Z82.69 Family history of other diseases of the musculoskeletal system and connective tissue; Z82.3 Family history of stroke; Z80.9 Family history of malignant neoplasm, unspecified; Z82.0 Family history of epilepsy and other diseases of the nervous system; Z83.2 Family history of diseases of the blood and blood-forming organs and certain disorders involving the immune mechanism
CPT/HCPCS: 96374; 99285; 36415; 93005; 85379; 83880; 80061; 80053; 83735; 84484 ×2; 85025; 85610; 85730; 81001; 71046; G0378 ×2; J1885

== ENCOUNTER → 2019-01-04 | Outpatient (CLI) | payer OTHER | END | disposition home or self-care (01) | LOC: LABWHC1 11:56 | PROVIDERS: ATTEND Family Medicine | DX: K02.9 Dental caries, unspecified (principal); R03.0 Elevated blood-pressure reading, without diagnosis of hypertension; F31.30 Bipolar disorder, current episode depressed, mild or moderate severity, unspecified; Z82.0 Family history of epilepsy and other diseases of the nervous system | CPT/HCPCS: 36415 ==

== ENCOUNTER → 2019-02-21 | Outpatient (CLI) | payer OTHER ==
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
== END | disposition home or self-care (01) ==
LOC: RADXRMAIN 17:09
PROVIDERS: ATTEND Family Medicine
DX: N30.01 Acute cystitis with hematuria (principal); R10.9 Unspecified abdominal pain
CPT/HCPCS: 74018

== ENCOUNTER 2019-03-10 13:23 | Emergency (ER) | payer OTHER ==
[2019-03-10 14:48] VITALS: PULSE 80; TEMP 98.5
[2019-03-10] MEDS ORDERED: MORPHINE SULFATE 4 MG/ML SYRINGE IM STA (17:31)
[2019-03-10 17:54] LABS: Appearance,Urine Clear (Clear); Bilirubin,Urine Negative (Negative); Blood,Urine Negative (Negative); Color,Urine Light Yellow; Glucose,Urine (UA) Negative (Negative); Ketones,Urine Negative (Negative); Leukocyte Esterase,Urine Negative (Negative); Nitrite,Urine Negative (Negative); Protein,Urine Negative (Negative); Specific Gravity,Urine 1.009 (1.001-1.035); Urobilinogen,Urine <2.0 mg/dL (<2.0)
[2019-03-10] MEDS ORDERED: ACET/COD 300 MG/30 MG STARTER PACK 6 TAB BTL PO STA (18:35)
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
[2019-03-10 18:41] VITALS: BP 160/64; RESP 15
== END 2019-03-10 18:38 | disposition home or self-care (01) ==
LOC: EC 13:23
DX: N48.89 Other specified disorders of penis (principal); R30.9 Painful micturition, unspecified; N50.819 Testicular pain, unspecified; K21.9 Gastro-esophageal reflux disease without esophagitis; J45.909 Unspecified asthma, uncomplicated; F17.200 Nicotine dependence, unspecified, uncomplicated; Z87.438 Personal history of other diseases of male genital organs; Z87.442 Personal history of urinary calculi; Z79.899 Other long term (current) drug therapy; Z88.0 Allergy status to penicillin; Z88.8 Allergy status to other drugs, medicaments and biological substances; Z88.2 Allergy status to sulfonamides; Z88.6 Allergy status to analgesic agent
CPT/HCPCS: 81003; 99283; 96372; J2270

== ENCOUNTER → 2019-04-01 | Outpatient (CLI) | payer OTHER ==
[2019-04-01 17:00] LABS: African American GFR (CKD) 111.8 (60.0-200.0)
== END | disposition home or self-care (01) ==
LOC: LABWHC1 08:40
PROVIDERS: ATTEND Physician Assistant
DX: N40.2 Nodular prostate without lower urinary tract symptoms (principal); N40.0 Benign prostatic hyperplasia without lower urinary tract symptoms; R31.29 Other microscopic hematuria
CPT/HCPCS: 36415; 82565; 84153; 84520

== ENCOUNTER → 2019-04-01 | Outpatient (CLI) | payer OTHER ==
--- NOTE | 2019-04-01 09:11 | CT ---
EXAMINATION TYPE: CT urogram wo/w con DATE OF EXAM: 04/01/2019 COMPARISON: 06/21/2018 HISTORY: 54-year-old male Kidney stones, Groin pain and unable to empty bladder TECHNIQUE: Contiguous axial scanning of the abdomen and pelvis performed without and with IV Contrast , patient injected with 100 mL of Isovue 300. Delayed images through the kidneys and bladder were obt ained. Coronal/sagittal reconstructions performed. 3-D reconstructions generated on a dedicated [employer] workstation. CT DLP: 1384.8 mGycm Automated exposure control for dose reduction was used. FINDINGS: Heart normal size without pericardial effusion. Lung bases clear without pleural effusion. No focal liver lesion or biliary ductal dilatation. Portal venous system is patent. Cholecystectomy clips. Adrenal glands, spleen, and pancreas appear within normal limits. Kidneys show no evidence for nephrolithiasis. There is symmetric uptake and excretion of contrast fro m the kidneys. No suspicious enhancing renal lesion. Tiny 5 mm hypodense cortical lesion upper pole right kidney too small for accurate CT characterization, probable tiny cortical cyst. No suspicious filling defect within the renal collecting system or along the course of either ureter. The distal most left ureter is not opacified limiting its evaluation. Bladder shows no abnormal mural based thickening or nodularity along the posterior half of the bladde r wall. No dilated small bowel, free fluid, or free air. No mesenteric or retroperitoneal lymphadenopathy. Normal appendix. Scattered mild to moderate stool. No pericolonic inflammatory change. Prostate gland measures 4.5 cm wide with central calcifications. No abnormal fluid collection in the pelvis or pelvic lymphadenopathy. Bones: Mild degenerative changes of the hips. Mild disc bulging lower lumbar spine and facet arthropa thy. IMPRESSION: 1. TINY 5 MM CORTICAL HYPODENSITY UPPER POLE RIGHT KIDNEY TOO SMALL FOR ACCURATE CT CHARACTERIZATION, LIKELY TINY CORTICAL CYST. 2. OTHERWISE, NO SUSPICIOUS RENAL LESION, FILLING DEFECT WITHIN THE COLLECTING SYSTEMS, OR HYDRONEPHR OSIS. ONLY THE DISTALMOST LEFT URETER IS NONOPACIFIED LIMITING ASSESSMENT. THE REMAINDER OF THE BILAT ERAL URETERS SHOW NO SPECIFIC ABNORMALITY. 3. MILD PROSTATOMEGALY (4.5 CM WIDE).
== END ==
LOC: RADCTMAIN 06:39
PROVIDERS: ATTEND Urology
DX: N20.0 Calculus of kidney (principal)
CPT/HCPCS: 74178; 74400; Q9967

== ENCOUNTER 2019-04-28 17:06 | Emergency (ER) | payer OTHER ==
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
[2019-04-28 18:37] LABS: Appearance,Urine Clear (Clear); Bilirubin,Urine Negative (Negative); Blood,Urine Trace (Negative); Color,Urine Yellow; Glucose,Urine (UA) Negative (Negative); Ketones,Urine Negative (Negative); Leukocyte Esterase,Urine Negative (Negative); Mucus,Urine Rare /hpf; Nitrite,Urine Negative (Negative); PH, Urine 6.5 (5.0-8.0); Protein,Urine Negative (Negative); RBC,Urine 4 /hpf (0-5); Specific Gravity,Urine 1.019 (1.001-1.035); Squamous Epithelial Cell,Urine <1 /hpf (0-4); Urobilinogen,Urine <2.0 mg/dL (<2.0)
[2019-04-28 19:17] VITALS: BP 131/102; PULSE 98; RESP 18; TEMP 98.2
== END 2019-04-28 19:14 | disposition home or self-care (01) ==
LOC: EC 17:06
DX: N50.811 Right testicular pain (principal); N50.812 Left testicular pain; G89.29 Other chronic pain; N48.89 Other specified disorders of penis; R30.0 Dysuria; J45.909 Unspecified asthma, uncomplicated; K21.9 Gastro-esophageal reflux disease without esophagitis; F90.9 Attention-deficit hyperactivity disorder, unspecified type; F17.200 Nicotine dependence, unspecified, uncomplicated; Z88.0 Allergy status to penicillin; Z88.1 Allergy status to other antibiotic agents; Z88.2 Allergy status to sulfonamides; Z88.6 Allergy status to analgesic agent; Z88.8 Allergy status to other drugs, medicaments and biological substances; Z79.899 Other long term (current) drug therapy; Z87.438 Personal history of other diseases of male genital organs; Z98.890 Other specified postprocedural states
CPT/HCPCS: 81001; 99284

== ENCOUNTER 2019-08-01 17:18 | Emergency (ER) | payer OTHER ==
[2019-08-01 17:36] VITALS: TEMP 98.4
[2019-08-01 18:32] LABS: Basophils # (A) 0.1 k/uL (0-0.2); Basophils % (A) 1 %; Eosinophils # (A) 0.1 k/uL (0-0.7); Eosinophils % (A) 1 %; HCT 48.1 % (39.0-53.0); HGB 16.2 gm/dL (13.0-17.5); Lymphocytes # (A) 2.1 k/uL (1.0-4.8); Lymphocytes % (A) 19 %; MCH 32.7 pg (25.0-35.0); MCHC 33.6 g/dL (31.0-37.0); MCV 97.1 fL (80.0-100.0); Monocytes # (A) 0.6 k/uL (0-1.0); Monocytes % (A) 6 %; Neutrophils # (A) 8.1 k/uL (1.3-7.7); Neutrophils % (A) 72 %; Platelet Count 184 k/uL (150-450); RBC 4.95 m/uL (4.30-5.90); RDW 12.4 % (11.5-15.5); WBC 11.3 k/uL (3.8-10.6)
--- NOTE | 2019-08-01 18:43 | CT ---
EXAMINATION TYPE: CT brain wo con DATE OF EXAM: 08/01/2019 COMPARISON: 02/27/2018 HISTORY: ETOH. CT DLP: 1413.3 mGycm Automated exposure control for dose reduction was used. Ventricles and sulci appear normal. There is no mass effect nor midline shift. There is no sign of in tracranial hemorrhage. The calvarium is intact. There is 13 mm hypodense focus in the anterior left i nternal capsule. There is mild mucosal thickening in the ethmoid air cells. 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 No hemor rhage. There is ethmoid sinusitis that is new compared to old exam.
[2019-08-01] MEDS ORDERED: LORazepam 2 MG/ML INJ IV STA (18:46)
[2019-08-01 18:52] LABS: ALT 27 U/L (4-49); AST 30 U/L (17-59); African American GFR (CKD) >90 (>60 ml/min/1.73 sqM); Albumin 4.3 g/dL (3.5-5.0); Alkaline Phosphatase 124 U/L (38-126); Anion Gap 14 mmol/L; Blood Urea Nitrogen 16 mg/dL (9-20); Calcium 8.6 mg/dL (8.4-10.2); Carbon Dioxide 21 mmol/L (22-30); Chloride 107 mmol/L (98-107); Glucose 105 mg/dL (74-99); Non-African American GFR(CKD) >90 (>60 ml/min/1.73 sqM); Sodium 142 mmol/L (137-145); Total Bilirubin 0.6 mg/dL (0.2-1.3); Total Protein 7.2 g/dL (6.3-8.2)
[2019-08-01 19:06] LABS: Alcohol 254 mg/dL
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
[2019-08-01 21:38] LABS: Amphetamine Screen,Urine Detected (NotDetected); Barbiturate Screen,Urine Not Detected (NotDetected); Benzodiazepines Screen,Urine Not Detected (NotDetected); Cocaine Screen,Urine Not Detected (NotDetected); Methadone Screen, Urine Not Detected (NotDetected); Opiate Screen,Urine Not Detected (NotDetected); Oxycodone Screen, Urine Not Detected (NotDetected); Phencyclidine Screen,Urine Not Detected (NotDetected); Tricyclic Antidepressant,Urine Not Detected (NotDetected); Urn Cannabinoid Scrn Detected (NotDetected)
[2019-08-02 00:21] VITALS: RESP 18
[2019-08-02 03:37] VITALS: BP 120/75; PULSE 80
== END 2019-08-02 03:38 | disposition home or self-care (01) ==
LOC: EC 17:18
DX: F10.29 Alcohol dependence with unspecified alcohol-induced disorder (principal); J45.909 Unspecified asthma, uncomplicated; K21.9 Gastro-esophageal reflux disease without esophagitis; F90.9 Attention-deficit hyperactivity disorder, unspecified type; F17.200 Nicotine dependence, unspecified, uncomplicated; Z79.899 Other long term (current) drug therapy; Z88.0 Allergy status to penicillin; Z88.8 Allergy status to other drugs, medicaments and biological substances; Z88.2 Allergy status to sulfonamides; Z88.6 Allergy status to analgesic agent; Z88.1 Allergy status to other antibiotic agents
CPT/HCPCS: 36415; 80053; 85025; 80306; 70450; 99285; 96374; G0480; J2060; 80320

== ENCOUNTER 2019-08-04 15:12 | Emergency (ER) | payer OTHER ==
[2019-08-04 16:08] VITALS: BP 130/96; PULSE 94; RESP 16; TEMP 98.2
--- NOTE | 2019-08-04 16:11 | XR ---
EXAMINATION TYPE: XR chest 2V DATE OF EXAM: 08/04/2019 COMPARISON: Chest x-ray 09/05/2018 HISTORY: Congestion and cough. TECHNIQUE: Frontal and lateral views of the chest are obtained. FINDINGS: There is chronic parenchymal change without suspicious focal air space opacity, pleural ef fusion, or pneumothorax seen. The cardiac silhouette size is within normal limits. The osseous str uctures are intact. Cholecystectomy clips noted on lateral view. IMPRESSION: No suspicious acute pulmonary process. No significant change from prior.
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
== END 2019-08-04 16:46 | disposition home or self-care (01) ==
LOC: EC 15:12
DX: H10.9 Unspecified conjunctivitis (principal); R09.81 Nasal congestion; R05 Cough; K21.9 Gastro-esophageal reflux disease without esophagitis; F17.200 Nicotine dependence, unspecified, uncomplicated; Z79.899 Other long term (current) drug therapy; Z88.0 Allergy status to penicillin; Z88.1 Allergy status to other antibiotic agents; Z88.2 Allergy status to sulfonamides; Z88.6 Allergy status to analgesic agent; Z88.8 Allergy status to other drugs, medicaments and biological substances
CPT/HCPCS: 71046; 99283

== ENCOUNTER 2019-09-22 12:25 | Emergency (ER) | payer OTHER ==
[2019-09-22 14:16] LABS: Appearance,Urine Clear (Clear); Bilirubin,Urine Negative (Negative); Blood,Urine Negative (Negative); Color,Urine Light Yellow; Glucose,Urine (UA) Negative (Negative); Ketones,Urine Negative (Negative); Leukocyte Esterase,Urine Negative (Negative); Nitrite,Urine Negative (Negative); Protein,Urine Negative (Negative); Specific Gravity,Urine 1.008 (1.001-1.035); Urobilinogen,Urine <2.0 mg/dL (<2.0)
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
--- NOTE | 2019-09-22 14:36 | US ---
EXAMINATION TYPE: US scrotum with doppler. Grayscale and color Doppler Duplex imaging performed of t he scrotum. DATE OF EXAM: 09/22/2019 COMPARISON: NONE CLINICAL HISTORY: Scrotal pain. Pain EXAM MEASUREMENTS: TESTICLES: Right Testicle: 4.0 x 1.7 x 3.0cm Left Testicle: 3.8 x 1.8 x 2.8 cm EPIDIDYMIS HEAD: Right Epididymis: 1.0 x .9 x .7 cm Left Epididymis: .9 x .6 x .9 cm cystic area .4 cm. Doppler performed to assess for testicular vascularity; good bilateral color flow and waveforms are s een. There is no evidence of testicular torsion. Presence of hydroceles: no Presence of varicoceles: no IMPRESSION: No sonographic evidence of testicular torsion at the time of examination. No evidence of epididymoorchitis. Benign-appearing left epididymal cyst measures only 0.4 cm.
[2019-09-22] MEDS ORDERED: KETOROLAC 30 MG/ML 1 ML VIAL IM STA (14:59)
[2019-09-22 15:30] VITALS: BP 144/96; PULSE 83; RESP 16; TEMP 98
[2019-09-23 16:11] LABS: C. trachomatis,PCR Negative (Neg,Equiv); Chlamydia trachomatis Source Urine; N. gonorrhoeae,PCR Negative (Neg,Equiv); Neisseria Source Urine
== END 2019-09-22 15:31 | disposition home or self-care (01) ==
LOC: EC 12:25
DX: N50.812 Left testicular pain (principal); N43.3 Hydrocele, unspecified; K21.9 Gastro-esophageal reflux disease without esophagitis; J45.909 Unspecified asthma, uncomplicated; F90.9 Attention-deficit hyperactivity disorder, unspecified type; M79.7 Fibromyalgia; N40.0 Benign prostatic hyperplasia without lower urinary tract symptoms; Z79.51 Long term (current) use of inhaled steroids; Z79.899 Other long term (current) drug therapy; Z88.0 Allergy status to penicillin; Z88.8 Allergy status to other drugs, medicaments and biological substances; Z88.2 Allergy status to sulfonamides; Z88.6 Allergy status to analgesic agent; Z88.1 Allergy status to other antibiotic agents; Z98.890 Other specified postprocedural states
CPT/HCPCS: 81003; 87491; 87591; 93975; 76870; 96372; 99284; J1885

== ENCOUNTER → 2019-12-22 | Outpatient (CLI) | payer OTHER ==
--- NOTE | 2019-12-23 09:16 | XR ---
EXAMINATION TYPE: XR shoulder complete RT DATE OF EXAM: 12/22/2019 CLINICAL HISTORY: Right shoulder pain and limited range of motion after heavy lifting injury TECHNIQUE: Three views of the right shoulder are obtained. COMPARISON: 05/18/2014 FINDINGS: There is no acute fracture/dislocation evident in the right shoulder. The acromioclavicul ar and glenohumeral joint spaces appear aligned with mild acromioclavicular arthropathy better apprec iated on the prior of 05/18/2014 given current suboptimal penetration. The visualized ribs are intact and unremarkable. IMPRESSION: There is no acute fracture or dislocation in the right shoulder.
== END | disposition home or self-care (01) ==
LOC: RADXRMAIN 15:58
PROVIDERS: ATTEND Family Medicine
DX: M25.511 Pain in right shoulder (principal)

== ENCOUNTER 2020-02-05 14:32 | Observation (INO) | payer OTHER ==
[2020-02-05] MEDS ORDERED: ONDANSETRON 4 MG/2 ML VIAL ONE (14:53)
[2020-02-05] MEDS ORDERED: ONDANSETRON 4 MG/2 ML VIAL IVP STA (15:02)
[2020-02-05] MEDS ORDERED: MORPHINE SULFATE 4 MG/ML SYRINGE IVP STA (15:02)
[2020-02-05] MEDS ORDERED: SODIUM CHLORIDE 0.9% 1,000 ML IV STA ×2 (15:03→19:01)
[2020-02-05] MEDS ORDERED: METOCLOPRAMIDE 5 MG/ML 2 ML VIAL IVP STA (15:04)
[2020-02-05] MEDS ORDERED: diphenhydrAMINE 50 MG/ML 1 ML VIAL IVP STA (15:04)
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
[2020-02-05 15:17] LABS: Basophils # (A) 0.1 k/uL (0-0.2); Basophils % (A) 1 %; Eosinophils # (A) 0.1 k/uL (0-0.7); Eosinophils % (A) 1 %; HCT 47.6 % (39.0-53.0); HGB 16.4 gm/dL (13.0-17.5); Lymphocytes # (A) 2.1 k/uL (1.0-4.8); Lymphocytes % (A) 17 %; MCH 33.9 pg (25.0-35.0); MCHC 34.6 g/dL (31.0-37.0); Mean Platelet Volume 8.3; Monocytes # (A) 0.6 k/uL (0-1.0); Monocytes % (A) 5 %; Neutrophils # (A) 9.4 k/uL (1.3-7.7); Neutrophils % (A) 76 %; Platelet Count 211 k/uL (150-450); RBC 4.85 m/uL (4.30-5.90); RDW 12.6 % (11.5-15.5); WBC 12.3 k/uL (3.8-10.6)
[2020-02-05 15:33] LABS: ALT 49 U/L (4-49); AST 35 U/L (17-59); African American GFR (CKD) >90 (>60 ml/min/1.73 sqM); Albumin 4.5 g/dL (3.5-5.0); Alcohol <10 mg/dL; Alkaline Phosphatase 125 U/L (38-126); Amylase 50 U/L (30-110); Anion Gap 9 mmol/L; Blood Urea Nitrogen 15 mg/dL (9-20); Calcium 9.2 mg/dL (8.4-10.2); Carbon Dioxide 23 mmol/L (22-30); Chloride 107 mmol/L (98-107); Glucose 137 mg/dL (74-99); Non-African American GFR(CKD) >90 (>60 ml/min/1.73 sqM); Sodium 139 mmol/L (137-145); Total Bilirubin 0.4 mg/dL (0.2-1.3); Total Protein 7.1 g/dL (6.3-8.2)
--- NOTE | 2020-02-05 16:44 | CT ---
EXAMINATION TYPE: CT abdomen pelvis w con DATE OF EXAM: 02/05/2020 COMPARISON: CT April 01, 2019 HISTORY: Abdominal pain, vomiting. CT DLP: 1132.6 mGycm, Automated Exposure Control for Dose Reduction was Utilized. CONTRAST: CT scan of the abdomen and pelvis is performed without oral but with IV Contrast, patient injected wi th 100 mL of Isovue 300. FINDINGS: LUNG BASES: No significant abnormality is appreciated. LIVER/GB: Cholecystectomy clips are redemonstrated. PANCREAS: No significant abnormality is seen. SPLEEN: No significant abnormality is seen. ADRENALS: No significant abnormality is seen. KIDNEYS: Symmetric corticomedullary uptake and excretion without hydronephrosis seen bilaterally. BOWEL: Slightly suboptimal evaluation without enteric contrast. Debris-filled stomach suggests produc t of recent meal ingestion. No suspicious small or large bowel dilatation. Single slightly prominent small bowel loop in the right upper to mid abdomen with heterogeneous internal debris. Incidental nor mal-appearing appendix from the cecum in the right upper pelvis. PROSTATE/SEMINAL VESICLES: Upper limits of normal bulging on the bladder base. LYMPH NODES: No greater than 1cm abdominal or pelvic lymph nodes are appreciated. OSSEOUS STRUCTURES: Mild disc space narrowing and vacuum disc phenomenon L4-L5 level. Facet arthropat hy lower lumbar levels. OTHER: No significant additional abnormality is seen. IMPRESSION: No bowel obstruction. No suspicious new or acute findings seen to account for patient's symptoms.
[2020-02-05] MEDS ORDERED: ENALAPRILAT 1.25 MG/ML 1 ML VIAL IVP STA ×2 (16:47→17:28)
[2020-02-05 17:15] LABS: Appearance,Urine Clear (Clear); Bilirubin,Urine Negative (Negative); Blood,Urine Trace (Negative); Color,Urine Yellow; Glucose,Urine (UA) Negative (Negative); Ketones,Urine Negative (Negative); Leukocyte Esterase,Urine Negative (Negative); Mucus,Urine Few /hpf; Nitrite,Urine Negative (Negative); Protein,Urine Negative (Negative); RBC,Urine 5 /hpf (0-5); Specific Gravity,Urine 1.036 (1.001-1.035); Urobilinogen,Urine <2.0 mg/dL (<2.0); WBC,Urine 1 /hpf (0-5)
[2020-02-05] MEDS ORDERED: HYDROmorphone 0.5 MG/0.5 ML SYRINGE IVP STA (17:28)
[2020-02-05] MEDS ORDERED: FAMOTIDINE 20 MG/2 ML VIAL IV STA (17:29)
[2020-02-05] MEDS ORDERED: ONDANSETRON 4 MG/2 ML VIAL IVP PRN (20:15)
[2020-02-05] MEDS ORDERED: NALOXONE 0.4 MG/ML 1 ML VIAL IV PRN (20:15)
[2020-02-05] MEDS ORDERED: MORPHINE SULFATE 4 MG/ML SYRINGE IV PRN (20:15)
[2020-02-05] MEDS ORDERED: HYDROmorphone 0.5 MG/0.5 ML SYRINGE IVP PRN (20:15)
[2020-02-05] MEDS: SODIUM CHLORIDE 0.9% 1,000 ML IV SCH (22:29)
[2020-02-05] MEDS ORDERED: ALBUTEROL NEBULIZED 2.5 MG/3 ML INHALATION PRN (22:55)
[2020-02-05] MEDS ORDERED: hydrOXYzine HCL 25 MG TAB PO ONE (23:00)
[2020-02-06] MEDS: SODIUM CHLORIDE 0.9% 1,000 ML IV SCH ×2 (03:12→13:55)
[2020-02-06 07:31] VITALS: BP 156/90; PULSE 70; RESP 16; TEMP 98.6
[2020-02-06] MEDS ORDERED: PANTOPRAZOLE 40 MG TABLET PO SCH (09:00)
[2020-02-06] MEDS ORDERED: DEXTROAMPHETAMINE SULFATE 10 MG PO SCH (09:00)
[2020-02-06 11:50] LABS: HCT 40.7 % (39.0-53.0); MCH 33.1 pg (25.0-35.0); MCHC 34.4 g/dL (31.0-37.0); MCV 96.2 fL (80.0-100.0); Platelet Count 168 k/uL (150-450); RBC 4.23 m/uL (4.30-5.90); RDW 12.7 % (11.5-15.5)
[2020-02-06 12:02] LABS: African American GFR (CKD) >90 (>60 ml/min/1.73 sqM); Anion Gap 5 mmol/L; Blood Urea Nitrogen 9 mg/dL (9-20); Carbon Dioxide 25 mmol/L (22-30); Chloride 107 mmol/L (98-107); Glucose 92 mg/dL (74-99); Non-African American GFR(CKD) >90 (>60 ml/min/1.73 sqM); Sodium 137 mmol/L (137-145)
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
== END 2020-02-06 14:26 | disposition home or self-care (01) ==
LOC: EC 14:32 → 1SOBS 21:03
PROVIDERS: ADMIT Family Medicine; ATTEND Family Medicine
DX: R11.2 Nausea with vomiting, unspecified (principal); R19.7 Diarrhea, unspecified; R10.819 Abdominal tenderness, unspecified site; E86.0 Dehydration; E87.2 Acidosis; I10 Essential (primary) hypertension; R10.84 Generalized abdominal pain; D72.829 Elevated white blood cell count, unspecified; F31.9 Bipolar disorder, unspecified; Z87.891 Personal history of nicotine dependence; K21.9 Gastro-esophageal reflux disease without esophagitis; M79.7 Fibromyalgia; J45.20 Mild intermittent asthma, uncomplicated; N40.1 Benign prostatic hyperplasia with lower urinary tract symptoms; R39.89 Other symptoms and signs involving the genitourinary system; F90.9 Attention-deficit hyperactivity disorder, unspecified type; G43.909 Migraine, unspecified, not intractable, without status migrainosus; E66.9 Obesity, unspecified; Z68.26 Body mass index [BMI] 26.0-26.9, adult; Z03.818 Encounter for observation for suspected exposure to other biological agents ruled out; Z79.899 Other long term (current) drug therapy; Z88.0 Allergy status to penicillin; Z88.8 Allergy status to other drugs, medicaments and biological substances; Z88.2 Allergy status to sulfonamides; Z88.6 Allergy status to analgesic agent; Z88.1 Allergy status to other antibiotic agents; Z86.69 Personal history of other diseases of the nervous system and sense organs; Z87.828 Personal history of other (healed) physical injury and trauma; Z87.81 Personal history of (healed) traumatic fracture; Z87.820 Personal history of traumatic brain injury; Z87.898 Personal history of other specified conditions; Z87.09 Personal history of other diseases of the respiratory system; Z87.19 Personal history of other diseases of the digestive system; Z90.49 Acquired absence of other specified parts of digestive tract; Z98.890 Other specified postprocedural states; Z87.438 Personal history of other diseases of male genital organs; Z82.3 Family history of stroke; Z83.79 Family history of other diseases of the digestive system; Z80.9 Family history of malignant neoplasm, unspecified; Z82.69 Family history of other diseases of the musculoskeletal system and connective tissue; Z82.49 Family history of ischemic heart disease and other diseases of the circulatory system; Z82.0 Family history of epilepsy and other diseases of the nervous system
CPT/HCPCS: 96361 ×2; 96376 ×2; 96374; 96375; 99285; 36415; 80053; 80048; 82150; 83605; 83690; 85025; 85027; 81001; 74177; G0378 ×2; G0480; U0003; J2270 ×2; J1200; J2765; J2405; J1170; Q9967; 80320

== ENCOUNTER 2020-04-25 11:20 | Emergency (ER) | payer OTHER ==
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
[2020-04-25 13:06] LABS: Appearance,Urine Clear (Clear); Bilirubin,Urine Negative (Negative); Blood,Urine Negative (Negative); Color,Urine Yellow; Glucose,Urine (UA) Negative (Negative); Ketones,Urine Negative (Negative); Leukocyte Esterase,Urine Negative (Negative); Nitrite,Urine Negative (Negative); Protein,Urine Negative (Negative); Specific Gravity,Urine 1.023 (1.001-1.035)
[2020-04-25 13:16] VITALS: BP 145/89; PULSE 64; RESP 14; TEMP 97.9
== END 2020-04-25 13:16 | disposition home or self-care (01) ==
LOC: EC 11:20
DX: N48.89 Other specified disorders of penis (principal); K21.9 Gastro-esophageal reflux disease without esophagitis; M79.7 Fibromyalgia; J45.909 Unspecified asthma, uncomplicated; F90.9 Attention-deficit hyperactivity disorder, unspecified type; Z79.899 Other long term (current) drug therapy; Z88.0 Allergy status to penicillin; Z88.2 Allergy status to sulfonamides; Z88.6 Allergy status to analgesic agent; Z88.8 Allergy status to other drugs, medicaments and biological substances; Z86.69 Personal history of other diseases of the nervous system and sense organs; Z87.891 Personal history of nicotine dependence
CPT/HCPCS: 81003; 99284

== ENCOUNTER 2020-08-20 14:17 | Emergency (ER) | payer OTHER ==
[2020-08-20 14:25] VITALS: TEMP 98.3
[2020-08-20] MEDS ORDERED: KETOROLAC 15 MG/ML 1 ML VIAL IVP STA (14:44)
[2020-08-20] MEDS ORDERED: SODIUM CHLORIDE 0.9% 1,000 ML IV STA (14:44)
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
[2020-08-20 15:13] LABS: Basophils # (A) 0.1 k/uL (0-0.2); Basophils % (A) 1 %; Eosinophils # (A) 0.1 k/uL (0-0.7); Eosinophils % (A) 2 %; HGB 16.5 gm/dL (13.0-17.5); Lymphocytes # (A) 3.4 k/uL (1.0-4.8); Lymphocytes % (A) 40 %; MCH 33.7 pg (25.0-35.0); MCHC 35.1 g/dL (31.0-37.0); Mean Platelet Volume 7.4; Monocytes # (A) 0.5 k/uL (0-1.0); Monocytes % (A) 6 %; Neutrophils # (A) 4.3 k/uL (1.3-7.7); Neutrophils % (A) 50 %; Platelet Count 212 k/uL (150-450); RBC 4.89 m/uL (4.30-5.90); RDW 12.6 % (11.5-15.5); WBC 8.6 k/uL (3.8-10.6)
[2020-08-20 15:14] LABS: Appearance,Urine Clear (Clear); Bilirubin,Urine Negative (Negative); Blood,Urine Trace (Negative); Color,Urine Yellow; Glucose,Urine (UA) Negative (Negative); Ketones,Urine Negative (Negative); Leukocyte Esterase,Urine Negative (Negative); Mucus,Urine Rare /hpf; Nitrite,Urine Negative (Negative); Protein,Urine Negative (Negative); RBC,Urine 3 /hpf (0-5); Specific Gravity,Urine 1.025 (1.001-1.035); Urobilinogen,Urine <2.0 mg/dL (<2.0); WBC,Urine 1 /hpf (0-5)
[2020-08-20 15:25] LABS: ALT 39 U/L (4-49); AST 27 U/L (17-59); African American GFR (CKD) >90 (>60 ml/min/1.73 sqM); Albumin 4.4 g/dL (3.5-5.0); Alkaline Phosphatase 131 U/L (38-126); Anion Gap 10 mmol/L; Blood Urea Nitrogen 23 mg/dL (9-20); Calcium 9.5 mg/dL (8.4-10.2); Carbon Dioxide 24 mmol/L (22-30); Chloride 103 mmol/L (98-107); Glucose 98 mg/dL (74-99); Lipase 88 U/L (23-300); Non-African American GFR(CKD) >90 (>60 ml/min/1.73 sqM); Potassium 4.4 mmol/L (3.5-5.1); Sodium 137 mmol/L (137-145); Total Bilirubin 0.5 mg/dL (0.2-1.3); Total Protein 7.4 g/dL (6.3-8.2)
[2020-08-20 15:47] VITALS: PULSE 77
--- NOTE | 2020-08-20 15:49 | CT ---
EXAMINATION TYPE: CT abdomen pelvis wo con DATE OF EXAM: 08/20/2020 HISTORY: Dysuria. CT DLP: 645.9 mGycm. Automated Exposure Control for Dose Reduction was Utilized. TECHNIQUE: CT scan of the abdomen and pelvis is performed without oral or IV contrast. COMPARISON: CT abdomen and pelvis February 05, 2020 and older studies FINDINGS: Within the limitations of a non-contrast study, the following observations are made. LUNG BASES: No significant abnormality is appreciated. LIVER/GB: Cholecystectomy clips redemonstrated. PANCREAS: No significant abnormality is seen. SPLEEN: No significant abnormality is seen. ADRENALS: No significant abnormality is seen. KIDNEYS: New 2 to 3 mm calculus left kidney lower pole level coronal image 64. No right-sided nephrol ithiasis. No hydronephrosis or obstructing ureteral calculi bilaterally. No intraluminal calculi in t he bladder. BOWEL: Suboptimal evaluation without enteric contrast. No suspicious small or large bowel dilatation is seen. Incidental normal-appearing appendix in the right pelvis. GENITAL ORGANS: Prostate upper limits of normal with central calcification. LYMPH NODES: No greater than 1cm abdominal or pelvic lymph nodes are appreciated. OSSEOUS STRUCTURES: No significant abnormality is seen. OTHER: Stable small fat-containing left inguinal hernia. IMPRESSION: New 2 to 3 mm nonobstructing calculus lower pole left kidney. Otherwise no significant ne w or acute findings identified versus most recent CT
[2020-08-20 16:29] VITALS: BP 155/65; RESP 16
== END 2020-08-20 16:10 | disposition home or self-care (01) ==
LOC: EC 14:17
DX: R10.2 Pelvic and perineal pain (principal); J45.909 Unspecified asthma, uncomplicated; K21.9 Gastro-esophageal reflux disease without esophagitis; N40.0 Benign prostatic hyperplasia without lower urinary tract symptoms; M79.7 Fibromyalgia; Z79.899 Other long term (current) drug therapy; Z88.0 Allergy status to penicillin; Z88.1 Allergy status to other antibiotic agents; Z88.2 Allergy status to sulfonamides; Z88.6 Allergy status to analgesic agent; Z88.8 Allergy status to other drugs, medicaments and biological substances; Z87.891 Personal history of nicotine dependence; Z90.49 Acquired absence of other specified parts of digestive tract
CPT/HCPCS: 36415; 80053; 83690; 85025; 81001; 74176; 99284; 96374; 96361; J1885

== ENCOUNTER 2020-09-23 12:23 | Emergency (ER) | payer OTHER ==
[2020-09-23] MEDS ORDERED: ONDANSETRON 4 MG/2 ML VIAL IVP STA (13:26)
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
[2020-09-23 13:48] VITALS: PULSE 88; RESP 20
[2020-09-23 13:56] LABS: Basophils # (A) 0.1 k/uL (0-0.2); Basophils % (A) 1 %; Eosinophils # (A) 0.1 k/uL (0-0.7); Eosinophils % (A) 1 %; HCT 48.5 % (39.0-53.0); HGB 17.5 gm/dL (13.0-17.5); Lymphocytes # (A) 3.2 k/uL (1.0-4.8); Lymphocytes % (A) 29 %; MCH 34.1 pg (25.0-35.0); MCHC 36.2 g/dL (31.0-37.0); MCV 94.2 fL (80.0-100.0); Mean Platelet Volume 8.3; Monocytes # (A) 0.8 k/uL (0-1.0); Monocytes % (A) 7 %; Neutrophils # (A) 6.6 k/uL (1.3-7.7); Neutrophils % (A) 61 %; Platelet Count 237 k/uL (150-450); RBC 5.15 m/uL (4.30-5.90); RDW 12.7 % (11.5-15.5); WBC 10.8 k/uL (3.8-10.6)
[2020-09-23 14:13] LABS: ALT 46 U/L (4-49); AST 32 U/L (17-59); African American GFR (CKD) >90 (>60 ml/min/1.73 sqM); Albumin 4.5 g/dL (3.5-5.0); Alkaline Phosphatase 115 U/L (38-126); Anion Gap 14 mmol/L; Blood Urea Nitrogen 23 mg/dL (9-20); Calcium 9.2 mg/dL (8.4-10.2); Carbon Dioxide 18 mmol/L (22-30); Chloride 102 mmol/L (98-107); Glucose 106 mg/dL (74-99); Non-African American GFR(CKD) 85 (>60 ml/min/1.73 sqM); Potassium 4.7 mmol/L (3.5-5.1); Sodium 134 mmol/L (137-145); Total Bilirubin 0.6 mg/dL (0.2-1.3); Total Protein 7.3 g/dL (6.3-8.2)
[2020-09-23] MEDS ORDERED: LORazepam 2 MG/ML INJ IV STA (14:18)
[2020-09-23 14:28] VITALS: BP 145/89; TEMP 98.1
== END 2020-09-23 14:28 | disposition home or self-care (01) ==
LOC: EC 12:23
DX: G89.29 Other chronic pain (principal); R10.9 Unspecified abdominal pain; K21.9 Gastro-esophageal reflux disease without esophagitis; J45.909 Unspecified asthma, uncomplicated; M79.7 Fibromyalgia; N40.0 Benign prostatic hyperplasia without lower urinary tract symptoms; F17.200 Nicotine dependence, unspecified, uncomplicated; F31.9 Bipolar disorder, unspecified; F90.9 Attention-deficit hyperactivity disorder, unspecified type; K44.9 Diaphragmatic hernia without obstruction or gangrene; G43.909 Migraine, unspecified, not intractable, without status migrainosus; K59.00 Constipation, unspecified; R29.90 Unspecified symptoms and signs involving the nervous system; Z79.899 Other long term (current) drug therapy; Z88.0 Allergy status to penicillin; Z88.1 Allergy status to other antibiotic agents; Z88.2 Allergy status to sulfonamides; Z88.5 Allergy status to narcotic agent; Z88.6 Allergy status to analgesic agent; Z88.8 Allergy status to other drugs, medicaments and biological substances; Z90.49 Acquired absence of other specified parts of digestive tract; Z98.890 Other specified postprocedural states; Z87.81 Personal history of (healed) traumatic fracture; Z87.820 Personal history of traumatic brain injury; Z82.3 Family history of stroke; Z80.9 Family history of malignant neoplasm, unspecified; Z82.0 Family history of epilepsy and other diseases of the nervous system; Z83.79 Family history of other diseases of the digestive system
CPT/HCPCS: 96374; 96375; 99285; 36415; 80053; 85025; J2060; J2405

== ENCOUNTER 2021-02-25 14:48 | Emergency (ER) | payer OTHER ==
[2021-02-25 15:22] VITALS: BP 130/83; PULSE 97; RESP 18; TEMP 98.1
[2021-02-25] MEDS ORDERED: methocarbamoL 750 MG TAB PO STA (15:48)
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
[2021-02-25 16:52] LABS: Basophils # (A) 0.1 k/uL (0-0.2); Basophils % (A) 1 %; Eosinophils # (A) 0.1 k/uL (0-0.7); Eosinophils % (A) 2 %; HCT 45.5 % (39.0-53.0); HGB 15.7 gm/dL (13.0-17.5); Lymphocytes # (A) 2.8 k/uL (1.0-4.8); Lymphocytes % (A) 33 %; MCH 33.7 pg (25.0-35.0); MCHC 34.6 g/dL (31.0-37.0); MCV 97.5 fL (80.0-100.0); Mean Platelet Volume 7.9; Monocytes # (A) 0.4 k/uL (0-1.0); Monocytes % (A) 5 %; Neutrophils # (A) 4.8 k/uL (1.3-7.7); Neutrophils % (A) 58 %; Platelet Count 213 k/uL (150-450); RBC 4.67 m/uL (4.30-5.90); RDW 13.4 % (11.5-15.5); WBC 8.4 k/uL (3.8-10.6)
[2021-02-25 17:09] LABS: ALT 21 U/L (4-49); AST 23 U/L (17-59); African American GFR (CKD) >90 (>60 ml/min/1.73 sqM); Albumin 4.5 g/dL (3.5-5.0); Alkaline Phosphatase 126 U/L (38-126); Anion Gap 7 mmol/L; Blood Urea Nitrogen 20 mg/dL (9-20); Calcium 9.4 mg/dL (8.4-10.2); Carbon Dioxide 27 mmol/L (22-30); Chloride 101 mmol/L (98-107); Glucose 99 mg/dL (74-99); Non-African American GFR(CKD) >90 (>60 ml/min/1.73 sqM); Potassium 4.6 mmol/L (3.5-5.1); Sodium 135 mmol/L (137-145); Total Bilirubin 0.5 mg/dL (0.2-1.3)
[2021-02-25 17:56] LABS: Appearance,Urine Clear (Clear); Bilirubin,Urine Negative (Negative); Blood,Urine Negative (Negative); Color,Urine Yellow; Glucose,Urine (UA) Negative (Negative); Ketones,Urine Negative (Negative); Leukocyte Esterase,Urine Negative (Negative); Nitrite,Urine Negative (Negative); Protein,Urine Negative (Negative); Specific Gravity,Urine 1.015 (1.001-1.035); Urobilinogen,Urine <2.0 mg/dL (<2.0)
== END 2021-02-25 18:14 | disposition home or self-care (01) ==
LOC: EC 14:48
DX: G89.29 Other chronic pain (principal); R10.2 Pelvic and perineal pain; M25.562 Pain in left knee; M25.561 Pain in right knee; M25.521 Pain in right elbow; M25.531 Pain in right wrist; J45.909 Unspecified asthma, uncomplicated; K21.9 Gastro-esophageal reflux disease without esophagitis; M79.7 Fibromyalgia; F31.9 Bipolar disorder, unspecified; F17.200 Nicotine dependence, unspecified, uncomplicated; F12.90 Cannabis use, unspecified, uncomplicated; Z79.51 Long term (current) use of inhaled steroids; Z79.899 Other long term (current) drug therapy; Z88.0 Allergy status to penicillin; Z88.1 Allergy status to other antibiotic agents; Z88.2 Allergy status to sulfonamides; Z88.6 Allergy status to analgesic agent
CPT/HCPCS: 36415; 80053; 81003; 85025; 85379; 99284

== ENCOUNTER 2021-03-25 08:44 | Emergency (ER) | payer OTHER ==
[2021-03-25 08:55] VITALS: RESP 20; TEMP 98.5
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
[2021-03-25] MEDS ORDERED: ACETAMINOPHEN TAB 500 MG TAB PO STA (09:30)
--- NOTE | 2021-03-25 09:41 | XR ---
EXAMINATION TYPE: XR shoulder complete RT DATE OF EXAM: 03/25/2021 CLINICAL HISTORY: pain TECHNIQUE: Three views of the right shoulder are obtained. COMPARISON: None FINDINGS: There is no acute fracture/dislocation evident. The acromioclavicular and glenohumeral johana int spaces appear mildly narrowed. The visualized ribs are intact and unremarkable. IMPRESSION: 1. There is no acute fracture or dislocation. ICD 10 NO FRACTURE, INITIAL EVALUATION
[2021-03-25] MEDS ORDERED: HYDROcodone/APAP 5-325MG 1 EACH TAB PO STA (09:51)
[2021-03-25 10:06] VITALS: BP 145/79; PULSE 77
== END 2021-03-25 10:06 | disposition home or self-care (01) ==
LOC: EC 08:44
DX: M25.511 Pain in right shoulder (principal); J45.909 Unspecified asthma, uncomplicated; K21.9 Gastro-esophageal reflux disease without esophagitis; F90.9 Attention-deficit hyperactivity disorder, unspecified type; F31.9 Bipolar disorder, unspecified; F17.200 Nicotine dependence, unspecified, uncomplicated; F12.90 Cannabis use, unspecified, uncomplicated; Z88.0 Allergy status to penicillin; Z88.1 Allergy status to other antibiotic agents; Z88.2 Allergy status to sulfonamides; Z88.6 Allergy status to analgesic agent; Z90.49 Acquired absence of other specified parts of digestive tract
CPT/HCPCS: 99284

== ENCOUNTER 2021-04-12 19:26 | Emergency (ER) | payer OTHER ==
[2021-04-12 20:01] VITALS: TEMP 97.9
--- NOTE | 2021-04-12 20:55 | XR ---
EXAMINATION TYPE: XR chest 2V DATE OF EXAM: 04/12/2021 COMPARISON: 08/04/2019 HISTORY: Cough and short of breath TECHNIQUE: 2 views FINDINGS: Heart and mediastinum are normal. Lungs are clear. Diaphragm is normal. Bony thorax appears normal. IMPRESSION: Normal chest. No change.
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
[2021-04-12 21:57] VITALS: BP 123/80; PULSE 63; RESP 19
== END 2021-04-12 21:57 | disposition home or self-care (01) ==
LOC: EC 19:26
DX: J06.9 Acute upper respiratory infection, unspecified (principal); J45.909 Unspecified asthma, uncomplicated; K21.9 Gastro-esophageal reflux disease without esophagitis; F90.9 Attention-deficit hyperactivity disorder, unspecified type; F31.9 Bipolar disorder, unspecified; F17.200 Nicotine dependence, unspecified, uncomplicated; F12.90 Cannabis use, unspecified, uncomplicated; Z88.0 Allergy status to penicillin; Z88.2 Allergy status to sulfonamides; Z88.1 Allergy status to other antibiotic agents; Z88.5 Allergy status to narcotic agent; Z88.6 Allergy status to analgesic agent; Z90.49 Acquired absence of other specified parts of digestive tract; Z20.822 Contact with and (suspected) exposure to COVID-19
CPT/HCPCS: 71046; 87635; 99284

== ENCOUNTER → 2022-12-20 | Outpatient (CLI) | payer OTHER ==
[2022-12-20 16:19] LABS: Hepatitis B Surface Antigen Nonreactive; Hepatitis C IgG Antibody Nonreactive
[2022-12-20 16:34] LABS: ALT 56 U/L (10-49); AST 27 U/L (14-35); Albumin 4.3 d/dL (3.8-4.9); Albumin/Globulin Ratio 1.79 Ratio (1.60-3.17); Alkaline Phosphatase 147 U/L (41-126); BUN/Creat Ratio 27.12 Ratio (12.00-20.00); Blood Urea Nitrogen 21.7 mg/dL (9.0-27.0); Carbon Dioxide 22.5 mmol/L (21.6-31.8); Chloride 103 mmol/L (96-109); Globulin 2.4 d/dL (1.6-3.3); Glucose 98 mg/dL (70-110); Potassium 4.7 mmol/L (3.5-5.5); Sodium 138 mmol/L (135-145); Total Bilirubin 0.3 mg/dL (0.3-1.2); Total Protein 6.7 d/dL (6.2-8.2)
== END | disposition home or self-care (01) ==
LOC: LABWHC1 07:27
PROVIDERS: ATTEND Nurse Practitioner Family
DX: R74.01 Elevation of levels of liver transaminase levels (principal)
CPT/HCPCS: 36415; 80053; 86803; 87340

== ENCOUNTER → 2022-12-20 | Outpatient (CLI) | payer OTHER ==
--- NOTE | 2022-12-20 08:10 | US ---
EXAMINATION TYPE: US abdomen complete DATE OF EXAM: 12/20/2022 COMPARISON: CT abdomen and pelvis 08/20/2020, renal ultrasound 02/15/2016. CLINICAL INDICATION: Male, 57 years old with history of R74.01 elevated liver levels; Elevated liver enzymes, abdominal pain, vomiting, cholecystectomy TECHNIQUE: Multiple sonographic images of the abdomen are obtained. FINDINGS: EXAM MEASUREMENTS: Liver Length: 16.5 cm Gallbladder Wall: Surgically absent CBD: 1.0 cm Spleen: 8.2 cm Right Kidney: 12.2 x 5.7 x 5.0 cm Left Kidney: 10.8 x 6.0 x 4.8 cm CLIMATE CHANGE ANALYST NOTES: *Technical limitations due to large amount of overlying bowel content Pancreas: Obscured by bowel gas Liver: attenuating, heterogeneous Gallbladder: surgically absent CBD: wnl Spleen: appears wnl Right Kidney: no evidence of hydronephrosis Left Kidney: no evidence of hydronephrosis Upper IVC: wnl Abd Aorta: visualized portions appears wnl, bifurcation obscured The pancreas is obscured by overlying bowel gas. Increased attenuation with heterogenous appearance o f the liver. This limits evaluation. No focal lesion within these limitations. Gallbladder surgically absent. Common bile duct is within normal limits for postcholecystectomy. Spleen is within normal li mits. No hydronephrosis, solid mass, or shadowing calculi. The intrahepatic portion of the IVC and pr oximal abdominal aorta are within normal limits. The bifurcation is obscured by overlying bowel gas IMPRESSION: 1. No acute process. 2. Hyperattenuating heterogenous appearance of liver which is most commonly seen with hepatic steatos is. 3. Post cholecystectomy changes.
== END | disposition home or self-care (01) ==
LOC: RADUSWWP 07:23
PROVIDERS: ATTEND Internal Medicine Gastroenterology
DX: K76.0 Fatty (change of) liver, not elsewhere classified (principal); R74.01 Elevation of levels of liver transaminase levels; Z90.49 Acquired absence of other specified parts of digestive tract
CPT/HCPCS: 76700

== ENCOUNTER 2023-01-03 08:08 | Day surgery (SDC) | payer OTHER ==
[~2023-01-03 08:08] MED LIST: LACTATED RINGERS 1,000 ML IV SCH
[2023-01-03 08:27] VITALS: TEMP 97.9
[2023-01-03] MEDS ORDERED: PROPOFOL 10 MG/ML 20 ML VIAL IV ONE (08:54)
[2023-01-03] MEDS ORDERED: LIDOCAINE 2% INJ 20 MG/ML (2 ML VIAL) ONE (08:54)
--- NOTE | 2023-01-03 09:20 | P.PCN ---
Date of Procedure: 01/03/23 Procedure(s) Performed: Brief history: Patient is a pleasant 57-year-old white male scheduled for an elective upper endoscopy as well as colonoscopy as a part of evaluation of with long-standing history of GERD and chronic abdominal pain associated with abdominal bloating for the last 5 days duration. Procedure performed: Esophagogastroduodenoscopy with biopsy Colonoscopy Preoperative diagnosis: Long-standing history of GERD Chronic lower abdominal pain Anesthesia: MAC Procedure: After informed consent was obtained from the patient was brought into the endoscopy unit and IV sedation was administered by anesthesia under continuous monitoring. Initially upper endoscopy was done. The Olympus GF 160 video endoscope was inserted inserted into the mouth and esophagus intubated without any difficulty and was gradually advanced into the stomach and duodenum and carefully examined. The bulb and second part of the duodenum appeared normal. The scope was then withdrawn into the stomach adequately insufflated with air and upon careful examination the antrum and mild gastritis with scattered erosions and biopsies were done from this area. Mucosa of the body, cardia and fundus appeared normal. The scope was then withdrawn into the esophagus. Small hiatal hernia noted. The GE junction was located at 40 cm to the incisors. It appeared regular with no erythema erosions or ulcerations. Rest of the esophagus appeared normal. Patient tolerated the procedure well. At this time the patient continued to remain sedation. Initial digital rectal examination was normal. Olympus CF 160 video colonoscope was then inserted into the rectum and gradually advanced to the cecum without any difficulty. Careful examination was performed as the scope was gradually being withdrawn. The prep was excellent. The cecum, ascending colon, transverse colon, descending colon, sigmoid colon and rectum appeared normal. Retroflexion was performed in the rectum and no lesions were noted. Patient tolerated the procedure well. Impression: 1. Upper endoscopy revealed mild antral gastritis and small hiatal hernia 2. Colonoscopy was within normal limits with no evidence of colorectal neoplasia Recommendations: Findings of this examination were discussed with the patient as well as her family. He was advised to follow with the biopsy results. Recommend repeat screening colonoscopy in 10 years. Follow up in office in 2 weeks..
[2023-01-03 09:27] VITALS: RESP 16
[2023-01-03 09:39] VITALS: BP 114/79; PULSE 73
== END 2023-01-03 09:54 | disposition home or self-care (01) ==
LOC: ORWHC2ENDO 08:08
PROVIDERS: ATTEND Internal Medicine Gastroenterology
DX: K29.50 Unspecified chronic gastritis without bleeding (principal); K21.9 Gastro-esophageal reflux disease without esophagitis; K44.9 Diaphragmatic hernia without obstruction or gangrene; K31.9 Disease of stomach and duodenum, unspecified; F17.200 Nicotine dependence, unspecified, uncomplicated; J45.909 Unspecified asthma, uncomplicated; F32.A Depression, unspecified; Z79.899 Other long term (current) drug therapy; Z98.890 Other specified postprocedural states
CPT/HCPCS: 88305; 45378; 43239; J2704; J2001

== ENCOUNTER 2023-03-31 00:27 | Emergency (ER) | payer OTHER ==
[2023-03-31 00:40] VITALS: RESP 18; TEMP 97.9
[2023-03-31] MEDS ORDERED: HYDROcodone/APAP 7.5-325MG 1 EACH TAB PO ONE (00:55)
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
[2023-03-31] MEDS ORDERED: HYDROmorphone 1 MG/ML 1 ML SYRINGE IM STA (01:36)
[2023-03-31 02:01] VITALS: BP 139/90; PULSE 83
== END 2023-03-31 01:57 | disposition home or self-care (01) ==
LOC: EC 00:27
DX: G89.29 Other chronic pain (principal); J45.909 Unspecified asthma, uncomplicated; F17.200 Nicotine dependence, unspecified, uncomplicated; F12.90 Cannabis use, unspecified, uncomplicated; Z86.59 Personal history of other mental and behavioral disorders; Z88.0 Allergy status to penicillin; Z88.1 Allergy status to other antibiotic agents; Z88.2 Allergy status to sulfonamides; Z88.6 Allergy status to analgesic agent; Z88.8 Allergy status to other drugs, medicaments and biological substances; Z90.49 Acquired absence of other specified parts of digestive tract
CPT/HCPCS: 99284; 96372; J1170

== ENCOUNTER 2023-11-26 17:21 | Emergency (ER) | payer OTHER ==
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
[2023-11-26 17:57] VITALS: TEMP 97.9
[2023-11-26] MEDS: traMADol 50 MG TAB PO STA (19:17)
[2023-11-26 20:36] VITALS: BP 105/65; PULSE 99; RESP 16
== END 2023-11-26 19:59 | disposition home or self-care (01) ==
LOC: EC 17:21
DX: L22 Diaper dermatitis (principal); F17.200 Nicotine dependence, unspecified, uncomplicated; Z88.0 Allergy status to penicillin; Z88.1 Allergy status to other antibiotic agents; Z88.2 Allergy status to sulfonamides; Z88.8 Allergy status to other drugs, medicaments and biological substances; Z88.6 Allergy status to analgesic agent
CPT/HCPCS: 99284

== ENCOUNTER 2023-12-04 19:00 | Inpatient (IN) | payer MEDICAID, OTHER ==
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
[2023-12-04] MEDS: HALOPERIDOL LACTATE 5 MG/ML 1 ML VIAL IM STA (22:36)
[2023-12-04 23:26] LABS: Amphetamine Screen,Urine Detected (NotDetected); Barbiturate Screen,Urine Not Detected (NotDetected); Benzodiazepines Screen,Urine Detected (NotDetected); Cocaine Screen,Urine Not Detected (NotDetected); Methadone Screen, Urine Not Detected (NotDetected); Opiate Screen,Urine Not Detected (NotDetected); Oxycodone Screen, Urine Not Detected (NotDetected); Phencyclidine Screen,Urine Not Detected (NotDetected); Tricyclic Antidepressant,Urine Not Detected (NotDetected); Urn Cannabinoid Scrn Detected (NotDetected)
[2023-12-05] MEDS: ZIPRASIDONE 20 MG VIAL IM STA (02:09)
[2023-12-05] MEDS ORDERED: ZIPRASIDONE 20 MG VIAL IM PRN (02:44)
[2023-12-05] MEDS ORDERED: MAG HYDROX/AL HYDROX/SIMETH 355 ML BOTTLE PO PRN (02:44)
[2023-12-05] MEDS ORDERED: HALOPERIDOL LACTATE 5 MG/ML 1 ML VIAL IM PRN (02:44)
[2023-12-05] MEDS: NICOTINE 14MG/24HR PATCH TRANSDERM SCH (09:31)
[2023-12-05] MEDS: LOSARTAN 50 MG TAB PO SCH (10:41)
[2023-12-05] MEDS: PANTOPRAZOLE 40 MG TABLET PO SCH (10:41)
[2023-12-05] MEDS: CHOLECALCIFEROL 25 MCG (1000 IU) TABLET PO SCH (10:41)
[2023-12-05] MEDS: TAMSULOSIN 0.4 MG CAP.ER.24H PO SCH (10:42)
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
[2023-12-05 16:51] LABS: HCT 43.2 % (39.0-53.0); HGB 14.7 gm/dL (13.0-17.5); MCH 32.7 pg (25.0-35.0); MCHC 33.9 g/dL (31.0-37.0); MCV 96.3 fL (80.0-100.0); Mean Platelet Volume 8.6; Platelet Count 217 k/uL (150-450); RBC 4.49 m/uL (4.30-5.90); RDW 12.6 % (11.5-15.5); WBC 10.4 k/uL (3.8-10.6)
[2023-12-05 17:08] LABS: ALT 37 U/L (4-49); AST 32 U/L (17-59); African American GFR (CKD) >90 (>60 ml/min/1.73 sqM); Alkaline Phosphatase 109 U/L (38-126); Anion Gap 6 mmol/L; Blood Urea Nitrogen 17 mg/dL (9-20); Carbon Dioxide 26 mmol/L (22-30); Chloride 108 mmol/L (98-107); Glucose 109 mg/dL (74-99); Non-African American GFR(CKD) 86 (>60 ml/min/1.73 sqM); Potassium 4.2 mmol/L (3.5-5.1); Sodium 140 mmol/L (137-145); Total Bilirubin 0.5 mg/dL (0.2-1.3); Total Protein 6.5 g/dL (6.3-8.2)
[2023-12-05] MEDS: ACETAMINOPHEN TAB 325 MG TAB PO PRN (18:58)
[2023-12-05] MEDS: LORazepam 1 MG TAB PO PRN (21:11)
[2023-12-05] MEDS: traZODone HCL 50 MG TAB PO PRN (21:11)
--- NOTE | 2023-12-06 17:29 | P.PN ---
Progress Note - Text Progress Note Date: 12/06/23 In-Patient Follow-up Chief Complaint: I need Ativan for my anxiety Subjective: The patient noted that Trazodone is not helping him sleep. He took Ativan and Trazodone last night but did not sleep well. The patient still believes that there are people, who are killing other people. He did not. He does not thing that his dog is . He did not express paranoia about his dog. The patient main complain was sleep and anxiety. He declined all the antipsychotic medication including older. He did agree for trying Prolixin. His sister wanted him back on Abiliy but he firmly declined. The patient was explained risks/benefits and side effects of Prolixin were explained. He consen bridger. Leading questions: The patient Admitted Depression and anxiety. Denied SI or HI. Denied symptoms consistent with psychosis Sleep and Appetite: Sleep poor. Appetite adequate. Interim History: Behavioral Changes: PRN meds/isolation/restraints/ change in status: None. Change in medical condition: No change. Change in medications: No change. Side effects from Medications: None. Objective- MSE: Alert and attentive. Orientation times three. Dressed and Groomed: Appropriately. Pleasant and cooperative. Psychomotor Activity: Normal. Speech: Normal in tone, quality, and quantity. Mood: Depressed Affect: Anxious. SI or HI: None. Perceptual disturbance: None. Thought Content: Paranoid delusions noted no other delusional thinking noted. Thought Process: Normal. Cognition: Intact Judgment and Insight: Poor. AIMS: Normal. Labs: Available labs reviewed. Diagnosis: No change. Plan and recommendation: Continue current Medications. Add Prolixin 2.5 mg. Monitor MS and side effects of medications and adjust medications accordingly. Provide supportive psychotherapy. The patient provided psychoeducation. The patient provided Substance abuse counseling. Smoke cessation therapy. The patient to continue attending the [facility]in activities. CBC with Diff, CMP, TSH, Lipid Profile, HbA1c, EKG ordered. Medication Consent with explanation of risk/benefits and side effects: Explained and obtained.
[2023-12-06] MEDS: haloperidoL 5 MG TAB PO PRN (17:36)
[2023-12-06] MEDS ORDERED: ARIPiprazole 5 MG TAB PO SCH (21:00)
[2023-12-07] MEDS ORDERED: BENZTROPINE MESYLATE 0.5 MG TAB PO PRN (16:14)
--- NOTE | 2023-12-07 16:19 | P.PN ---
Progress Note - Text Progress Note Date: 12/07/23 Interval history: Patient was seen isolating and resting in his bed in the dark. He was directable and agreeable to speak with creative services writer, but appeared guarded, paranoid and anxious, and eager to finish assessment. He has required PRN Ativan for anxiety today. At this time patient denies any suicidal or homicidal ideations intent or plan. Denies any auditory or visual hallucinations. His responses are brief and he does not make any overtly paranoid statements to me but abruptly ends assessment. Patient denies any side effects from the medications to me and has been compliant with meds. Nursing note reported patient appeared restless earlier in the day and was given Ativan PRN. Mental status exam: General Appearance: Patient appears to be stated age, dressed in hospital gown, disheveled, unshaven Behavior: No agitated behavior. Patient is guarded but directable. Somewhat restless per report. Speech: Patient's speech is fluent and non-pressured. Mood/Affect: Mood is anxious, affect is congruent and constricted. Suicidality/Homicidality: Patient denies having any suicidal or homicidal ideation intent or plan. Perceptions: Patient denies any auditory or visual hallucinations. Though content/process: He does not express any overtly fixed delusional thoughts to me but appears paranoid/anxious and thought process is linear. Memory and concentration: AOX3, grossly intact for the purposes of this session Judgment and insight: improving mildly Assessment/Plan: Continue with current diagnosis. Patient continues to meet criteria for inpatient psychiatric admission for symptom stabilization and safety. Increase Fluphenazine to 2 mg BID for psychosis. Monitor for medication compliance and for any psychotropic medication side effects. Will continue to monitor ongoing response to treatment. Encouraged participation in milieu.
[2023-12-07] MEDS: traZODone HCL 100 MG TAB PO PRN (20:45)
[2023-12-07] MEDS: hydrOXYzine HCL 25 MG TAB PO PRN (20:45)
[2023-12-08] MEDS: MAGNESIUM HYDROXIDE 2,400 MG/30 ML CUP PO PRN (08:43)
--- NOTE | 2023-12-08 19:18 | P.PN ---
Progress Note - Text Progress Note Date: 12/08/23 Interval history: Patient was seen sitting with peers and was calm. He was directable and agreeable to speak with appeals writer, however again today he keeps the assessment short. He denies paranoid ideations today. He states on admission he thought people were trying to kill him but no longer thinks this. He appears to utilize defense mechanisms of denial and minimization. He denies any auditory or visual hallucinations on my assessment, but according to multiple staff members he tends to lay in bed most of the day today responding to internal stimuli. At this time patient denies any suicidal or homicidal ideation, intent or plan. Patient denies any side effects from the medications to me and has been compliant with meds. Mental status exam: General Appearance: Patient appears to be stated age, dressed in casual attire. Behavior: No agitated behavior. Patient is guarded but directable, poor eye contact. Speech: Patient's speech is fluent and non-pressured. Mood/Affect: Mood is anxious, affect is congruent and constricted. Suicidality/Homicidality: Patient denies having any suicidal or homicidal ideation intent or plan. Perceptions: Patient denies any auditory or visual hallucinations to me, but per multiple staff reports he has been in his room most the day responding to internal stimuli. Though content/process: He does not express any overtly fixed delusional thoughts to me but appears paranoid/anxious and thought process is somewhat concrete. Memory and concentration: AOX3, grossly intact for the purposes of this session Judgment and insight: poor Assessment/Plan: Continue with current diagnosis. [facility] and safety. Increase Fluphenazine to 3 mg BID for psychosis, with plan to increase as tolerated. Cogentin 0.5 mg BID PRN is available if needed for EPS. Monitor for medication compliance and for any psychotropic medication side effects. Will continue to monitor ongoing response to treatment. Encouraged participation in milieu.
--- NOTE | 2023-12-09 18:49 | P.PN ---
Progress Note - Text Progress Note Date: 12/09/23 Interval history: Patient was seen eating his meal in the dining area. He was directable and agreeable to speak with selling underwriter, however again today he keeps the assessment short. His insight appears poor since he states he does not know why he is in the hospital. At this time patient denies any suicidal or homicidal ideation, intent or plan. Patient denies any side effects from the medications to me and has been compliant with meds. Hygiene is improving on higher dose of Prolixin and he showered today. He denies any auditory or visual hallucinations on my assessment, but according to staff members he continues to respond to internal stimuli today, but not as much as previous days. He does exhibit paranoid ideations to me today, states that "she put my urethra together", and when asked to elaborate, he states he "can't masterbate" and that he "tried today but it didn't work", and believes this is because someone did something to his urethra. He then abruptly ends the assessment and returns to the dining area. Mental status exam: General Appearance: Patient appears to be stated age, dressed in casual attire showered.. Behavior: No agitated behavior. Patient is guarded but directable, poor eye contact. Speech: Patient's speech is fluent and non-pressured. Mood/Affect: Mood is ok, affect is congruent and constricted, appears anxious. Suicidality/Homicidality: Patient denies having any suicidal or homicidal ideation intent or plan. Perceptions: Patient denies any auditory or visual hallucinations to me, but per multiple staff reports he has been responding to internal stimuli but less than previous days. Though content/process: He does express paranoid delusional thoughts to me about his urethra, and thought process is somewhat concrete. Memory and concentration: AOX3, grossly intact for the purposes of this session Judgment and insight: poor Assessment/Plan: Continue with current diagnosis. Patient continues to meet criteria for inpatient psychiatric admission for symptom stabilization and safety. Increase Fluphenazine to 5 mg BID for psychosis. Cogentin 0.5 mg BID PRN is available if needed for EPS. Monitor for medication compliance and for any psychotropic medication side effects. Will continue to monitor ongoing response to treatment. Encouraged participation in milieu.
[2023-12-10] MEDS ORDERED: SENNOSIDES 8.6 MG TAB PO PRN (11:33)
--- NOTE | 2023-12-10 11:37 | P.PN ---
Progress Note - Text Progress Note Date: 12/10/23 Interval history: Patient was seen walking in the hallway, appears internally preoccupied. He was directable and agreeable to speak with keno writer/runner, however again today he keeps the assessment brief and walks away. His insight into his delusional thoughts is poor and he appears guarded. At this time patient denies any suicidal or homicidal ideation, intent or plan. Patient denies any side effects from the medications to me and has been compliant with meds. He does complain of constipation but unclear if this is related to the medication. He denies any auditory or visual hallucinations on my assessment, but still appears somewhat internally preoccupied. He does not express paranoid ideations to me today. He abruptly ends the assessment and walks away. Mental status exam: General Appearance: Patient appears to be stated age, dressed in casual attire, fair hygiene and grooming. Behavior: No agitated behavior. Patient is guarded but directable, fair eye contact, keeps assessment short and walks away. Speech: Patient's speech is fluent and non-pressured. Mood/Affect: Mood is ok, affect is blunted and constricted. Suicidality/Homicidality: Patient denies having any suicidal or homicidal ideation intent or plan. Perceptions: Patient denies any auditory or visual hallucinations to me, but still appears to be responding to internal stimuli. Though content/process: He does not express paranoid delusional thoughts to me today, and thought process is concrete. Memory and concentration: AOX3, grossly intact for the purposes of this session Judgment and insight: poor Assessment/Plan: Continue with current diagnosis. Patient continues to meet criteria for in patient psychiatric admission for symptom stabilization and safety. Continue Fluphenazine 5 mg BID for psychosis. Monitor response and adjust dose as tolerated. Cogentin 0.5 mg BID PRN is available if needed for EPS. Start scheduled Colace 100 mg BID and Senna 8.6 mg daily for constipation until bowel movements return to normal and then can switch to PRN for constipation. Monitor for medication compliance and for any psychotropic medication side effects. Will continue to monitor ongoing response to treatment. Encouraged participation in milieu.
[2023-12-10] MEDS: DOCUSATE 100 MG CAP PO SCH (13:04)
[2023-12-10 20:52] LABS: Appearance,Urine Clear (Clear); Bilirubin,Urine Negative (Negative); Blood,Urine Trace (Negative); Color,Urine Colorless; Glucose,Urine (UA) Negative (Negative); Ketones,Urine Negative (Negative); Leukocyte Esterase,Urine Negative (Negative); Mucus,Urine Rare /hpf; Nitrite,Urine Negative (Negative); PH, Urine 5.5 (5.0-8.0); Protein,Urine Negative (Negative); RBC,Urine 1 /hpf (0-5); Specific Gravity,Urine 1.021 (1.001-1.035); Urobilinogen,Urine <2.0 mg/dL (<2.0); WBC,Urine 1 /hpf (0-5)
--- NOTE | 2023-12-11 14:58 | P.PN ---
Progress Note - Text Progress Note Date: 12/11/23 Follow-up Mediation Review Chief Complaint: I slept better last night Subjective: The patient noted that he has been feeling good. He noted taking his medications. He does not want to take Abilify any more. The patient stated that he is not having any panic attacks or having any delusions, I do not people are killing are trying to kill him or anybody else. The patient has been attending the groups. The participation is limited. The interaction with staff and peers is adequate. The patient is compliant with treatment recommendations. Leading questions: The patient denied Depression and Anxiety. Denied SI or HI. Denied symptoms consistent with psychosis Sleep and Appetite: Fine. Change in family/ living/job/financial/daily routine: No change. Change in medical condition: No change. Change in medications: No change. Side effects from Medications: None. Objective- MSE: Alert and attentive. Orientation times three. Dressed and Groomed: Appropriately. Pleasant and cooperative. Psychomotor Activity: Normal. Speech: Normal in tone, quality, and quantity. Mood: Good. Affect: Appropriate to the mood. SI or HI: None. Perceptual disturbance: None. Thought Content: No paranoia or other delusional thinking noted. Thought Process: Normal. Cognition: Intact Judgment and Insight: Fair. AIMS: Normal. Labs: No new labs. Diagnosis: Schizoaffective Disorder, Depressed type. Substance induced psychosis Plan and Recommendations: Continue current Medications. Monitor MS and side effects of medications and adjust medications accordingly. Provide supportive psychotherapy. The patient provided psychoeducation and advised The patient provided Substance abuse counseling. Smoke cessation therapy. The patient to attend rankin activities. Medication Consent with explanation of risk/benefits and side effects: Explained and obtained.
[2023-12-12 07:14] VITALS: RESP 14
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
[2023-12-13 07:19] VITALS: TEMP 98.3
[2023-12-13 08:54] VITALS: BP 137/88; PULSE 88
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
== END 2023-12-13 13:47 | disposition home or self-care (01) | DRG 750 ==
LOC: EC 19:00 → 3MHU 12-05 02:06 → UNDOADMIN 12-05 02:06 → EC 12-05 02:33 → 3MHU 12-05 03:55
PROVIDERS: ADMIT Psychiatry & Neurology Psychiatry; ATTEND Psychiatry & Neurology Psychiatry
DX: F25.1 Schizoaffective disorder, depressive type (principal); F19.959 Other psychoactive substance use, unspecified with psychoactive substance-induced psychotic disorder, unspecified; F10.129 Alcohol abuse with intoxication, unspecified; F17.210 Nicotine dependence, cigarettes, uncomplicated; F31.9 Bipolar disorder, unspecified; F41.9 Anxiety disorder, unspecified; F90.9 Attention-deficit hyperactivity disorder, unspecified type; I10 Essential (primary) hypertension; J45.909 Unspecified asthma, uncomplicated; K21.9 Gastro-esophageal reflux disease without esophagitis; K59.00 Constipation, unspecified; M79.7 Fibromyalgia; N40.0 Benign prostatic hyperplasia without lower urinary tract symptoms; Z79.899 Other long term (current) drug therapy; Z81.8 Family history of other mental and behavioral disorders; Z11.52 Encounter for screening for COVID-19
CPT/HCPCS: 80053; 80306; 81001; 83036; 84443; 85027; 87636; 96374; 99285

== ENCOUNTER 2023-12-20 10:51 | Emergency (ER) | payer OTHER ==
[2023-12-20 11:18] VITALS: TEMP 98.2
[2023-12-20 12:18] LABS: Basophils # (A) 0.1 k/uL (0-0.2); Basophils % (A) 1 %; Eosinophils # (A) 0.2 k/uL (0-0.7); Eosinophils % (A) 2 %; HCT 42.6 % (39.0-53.0); HGB 14.1 gm/dL (13.0-17.5); Lymphocytes # (A) 3.1 k/uL (1.0-4.8); Lymphocytes % (A) 32 %; MCH 32.7 pg (25.0-35.0); MCHC 33.1 g/dL (31.0-37.0); Mean Platelet Volume 8.3; Monocytes # (A) 0.6 k/uL (0-1.0); Monocytes % (A) 6 %; Neutrophils # (A) 5.5 k/uL (1.3-7.7); Neutrophils % (A) 57 %; Platelet Count 202 k/uL (150-450); RBC 4.31 m/uL (4.30-5.90); RDW 12.8 % (11.5-15.5); WBC 9.6 k/uL (3.8-10.6)
[2023-12-20 12:30] LABS: ALT 49 U/L (4-49); AST 25 U/L (17-59); African American GFR (CKD) >90 (>60 ml/min/1.73 sqM); Albumin 3.8 g/dL (3.5-5.0); Alkaline Phosphatase 107 U/L (38-126); Anion Gap 6 mmol/L; Blood Urea Nitrogen 28 mg/dL (9-20); Carbon Dioxide 26 mmol/L (22-30); Chloride 108 mmol/L (98-107); Glucose 105 mg/dL (74-99); Non-African American GFR(CKD) 89 (>60 ml/min/1.73 sqM); Potassium 4.3 mmol/L (3.5-5.1); Sodium 140 mmol/L (137-145); Total Bilirubin 0.4 mg/dL (0.2-1.3); Total Protein 6.1 g/dL (6.3-8.2)
--- NOTE | 2023-12-20 12:59 | XR ---
EXAMINATION TYPE: XR pelvis AP view DATE OF EXAM: 12/20/2023 Comparison: None Clinical History: 58-year-old male pain Findings: Mild to moderate degenerative joint space narrowing and subchondral sclerosis at the superior weight- bearing aspect of both hips. SI joints appear symmetric and intact as does the pubic symphysis. No ac marjorie fracture, subluxation, dislocation. Impression: At least mild, probably mild to moderate bilateral hip OA. No acute osseous abnormality seen.
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
[2023-12-20 14:01] LABS: Amphetamine Screen,Urine Detected (NotDetected); Barbiturate Screen,Urine Not Detected (NotDetected); Benzodiazepines Screen,Urine Detected (NotDetected); Cocaine Screen,Urine Not Detected (NotDetected); Methadone Screen, Urine Not Detected (NotDetected); Opiate Screen,Urine Detected (NotDetected); Oxycodone Screen, Urine Not Detected (NotDetected); Phencyclidine Screen,Urine Not Detected (NotDetected); Tricyclic Antidepressant,Urine Not Detected (NotDetected); Urn Cannabinoid Scrn Detected (NotDetected)
[2023-12-20] MEDS: ACETAMINOPHEN TAB 500 MG TAB PO STA (15:26)
[2023-12-20 16:13] VITALS: BP 122/70; PULSE 78; RESP 18
== END 2023-12-20 16:21 | disposition home or self-care (01) ==
LOC: EC 10:51
DX: Z04.6 Encounter for general psychiatric examination, requested by authority (principal); Z91.148 Patient's other noncompliance with medication regimen for other reason; F31.9 Bipolar disorder, unspecified; Z88.0 Allergy status to penicillin; Z88.1 Allergy status to other antibiotic agents; Z88.2 Allergy status to sulfonamides; Z88.6 Allergy status to analgesic agent; Z88.8 Allergy status to other drugs, medicaments and biological substances
CPT/HCPCS: 36415; 72170; 80053; 80306; 82075; 82140; 85025; 93005; 99284

== ENCOUNTER 2024-04-05 14:26 | Observation (INO) | payer OTHER ==
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
[2024-04-05 15:34] LABS: Basophils # (A) 0.1 k/uL (0-0.2); Basophils % (A) 1 %; Eosinophils # (A) 0.1 k/uL (0-0.7); Eosinophils % (A) 1 %; HCT 47.2 % (39.0-53.0); HGB 15.5 gm/dL (13.0-17.5); Lymphocytes % (A) 22 %; MCH 32.8 pg (25.0-35.0); MCHC 32.9 g/dL (31.0-37.0); MCV 99.6 fL (80.0-100.0); Mean Platelet Volume 7.8; Monocytes # (A) 0.5 k/uL (0-1.0); Monocytes % (A) 6 %; Neutrophils % (A) 68 %; Platelet Count 239 k/uL (150-450); RBC 4.74 m/uL (4.30-5.90); RDW 12.9 % (11.5-15.5); WBC 8.8 k/uL (3.8-10.6)
[2024-04-05] MEDS: SODIUM CHLORIDE 0.9% 500 ML 500 ML IV ONE ×2 (15:45→17:55)
[2024-04-05 15:53] LABS: ALT 54 U/L (4-49); Acetaminophen <10.0 ug/mL; African American GFR (CKD) >90 (>60 ml/min/1.73 sqM); Albumin 4.5 g/dL (3.5-5.0); Anion Gap 13 mmol/L; Blood Urea Nitrogen 14 mg/dL (9-20); Calcium 9.1 mg/dL (8.4-10.2); Carbon Dioxide 16 mmol/L (22-30); Chloride 109 mmol/L (98-107); Glucose 117 mg/dL (74-99); Non-African American GFR(CKD) >90 (>60 ml/min/1.73 sqM); Salicylate <1.0 mg/dL; Sodium 138 mmol/L (137-145); Total Bilirubin 0.8 mg/dL (0.2-1.3)
[2024-04-05 15:58] LABS: AST 54 U/L (17-59); Alcohol 224 mg/dL; Alkaline Phosphatase 95 U/L (38-126); Magnesium 1.8 mg/dL (1.6-2.3); Potassium 4.3 mmol/L (3.5-5.1)
[2024-04-05 16:07] LABS: Appearance,Urine Clear (Clear); Bacteria,Urine Rare /hpf; Bilirubin,Urine Negative (Negative); Blood,Urine Large (Negative); Color,Urine Colorless; Glucose,Urine (UA) Negative (Negative); Ketones,Urine Negative (Negative); Leukocyte Esterase,Urine Trace (Negative); Nitrite,Urine Negative (Negative); Protein,Urine Negative (Negative); Specific Gravity,Urine 1.005 (1.001-1.035); Urobilinogen,Urine <2.0 mg/dL (<2.0); WBC,Urine 5 /hpf (0-5)
[2024-04-05 16:20] LABS: Amphetamine Screen,Urine Detected (NotDetected); Barbiturate Screen,Urine Not Detected (NotDetected); Benzodiazepines Screen,Urine Not Detected (NotDetected); Cocaine Screen,Urine Not Detected (NotDetected); Methadone Screen, Urine Not Detected (NotDetected); Opiate Screen,Urine Not Detected (NotDetected); Oxycodone Screen, Urine Not Detected (NotDetected); Phencyclidine Screen,Urine Not Detected (NotDetected); Tricyclic Antidepressant,Urine Not Detected (NotDetected); Urn Cannabinoid Scrn Detected (NotDetected)
[2024-04-05] MEDS ORDERED: NALOXONE 0.4 MG/ML 1 ML VIAL IV PRN (16:41)
[2024-04-05] MEDS ORDERED: ONDANSETRON 4 MG/2 ML VIAL IVP PRN (16:41)
[2024-04-05] MEDS ORDERED: LORazepam 0.5 MG TAB PO PRN (16:42)
[2024-04-05] MEDS ORDERED: LORazepam 2 MG/ML INJ IV PRN ×2 (16:42)
[2024-04-05] MEDS: SODIUM CHLORIDE 0.9% 1,000 ML IV ONE (16:45)
[2024-04-05] MEDS: SODIUM CHLORIDE 0.9% 1,000 ML IV SCH (18:08)
[2024-04-05] MEDS: DIPH,PERTUS(ACELL)TETVAC-LF 0.5 ML VIAL IM ONE (18:11)
[2024-04-05] MEDS: LORazepam 2 MG/ML INJ IV PRN (18:19)
[2024-04-05] MEDS: HYDROcodone/APAP 7.5-325MG 1 EACH TAB PO PRN (23:39)
[2024-04-06] MEDS: THIAMINE 100 MG TAB PO SCH (08:10)
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
[2024-04-06] MEDS: LOSARTAN 50 MG TAB PO SCH (09:57)
[2024-04-06] MEDS: TAMSULOSIN 0.4 MG CAP.ER.24H PO SCH (09:57)
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
[2024-04-06 16:28] VITALS: TEMP 98.1
[2024-04-06] MEDS: TEMAZEPAM 15 MG CAP PO SCH (20:16)
[2024-04-07] MEDS: PANTOPRAZOLE 40 MG TABLET PO SCH (09:07)
[2024-04-07 11:47] LABS: ALT 44 U/L (4-49); AST 41 U/L (17-59); African American GFR (CKD) >90 (>60 ml/min/1.73 sqM); Albumin 4.2 g/dL (3.5-5.0); Alkaline Phosphatase 108 U/L (38-126); Anion Gap 3 mmol/L; Blood Urea Nitrogen 13 mg/dL (9-20); Calcium 9.2 mg/dL (8.4-10.2); Carbon Dioxide 26 mmol/L (22-30); Chloride 107 mmol/L (98-107); Glucose 93 mg/dL (74-99); Non-African American GFR(CKD) >90 (>60 ml/min/1.73 sqM); Potassium 4.6 mmol/L (3.5-5.1); Sodium 136 mmol/L (137-145); Total Bilirubin 0.7 mg/dL (0.2-1.3); Total Protein 6.6 g/dL (6.3-8.2)
[2024-04-07 11:52] LABS: Basophils # (A) 0.1 k/uL (0-0.2); Basophils % (A) 1 %; Eosinophils # (A) 0.2 k/uL (0-0.7); Eosinophils % (A) 3 %; HCT 44.5 % (39.0-53.0); HGB 15.2 gm/dL (13.0-17.5); Lymphocytes # (A) 2.6 k/uL (1.0-4.8); Lymphocytes % (A) 30 %; MCH 33.4 pg (25.0-35.0); MCHC 34.1 g/dL (31.0-37.0); Mean Platelet Volume 8.1; Monocytes # (A) 0.7 k/uL (0-1.0); Monocytes % (A) 8 %; Neutrophils # (A) 4.9 k/uL (1.3-7.7); Neutrophils % (A) 57 %; Platelet Count 216 k/uL (150-450); RBC 4.54 m/uL (4.30-5.90); RDW 13.4 % (11.5-15.5); WBC 8.6 k/uL (3.8-10.6)
--- NOTE | 2024-04-07 12:15 | P.DS ---
Providers Date of admission: 04/05/24 18:14 Expected date of discharge: 04/07/24 Attending physician: Marcos Pena Consults: 04/05/24 16:41 Consult Physician Routine Consulting Provider: Meet Mills Consult Reason/Comments: depression,SI Do you want consulting provider notified?: Yes 04/05/24 22:29 Consult Physician Routine Consulting Provider: Bruce Calderón Consult Reason/Comments: urinary retention Do you want consulting provider notified?: Yes, Notify in am Primary care physician: Joseph Steele Hospital Course: Discharge diagnoses; Major depression suicidal ideations Alcohol intoxication Rhabdomyolysis Hypertension Urine retention Hospital course; patient is 59-year-old gentleman with past medical history significant for hypertension, depression brought the ER for psychiatric evaluation. Patient was intoxicated, stating that he has no desire to live anymore. Patient had laceration across the abdomen and also took 30 tablets of Adderall with aim to end his life. Denies any auditory hallucinations. Patient has been admitted multiple times in the past with similar complaints and has a significant psych history. Initial lab work done in the ER showed WBC 8.4, hemoglobin 15.5, platelet count 239, sodium 130, potassium 4.3, BUN 14, creatinine 0.92, calcium 9.1, magnesium 1.8, AST 54, ALT 54, CK1 055 UA negative for infection Urine drug screen positive for amphetamines, marijuana, serum alcohol level 224 Patient admitted to internal medicine service 04/07. Patient seen and examined. Patient was eval by psychiatry, they recommend inpatient psych admission. Currently patient is medically stable for discharge to inpatient psych PHYSICAL EXAMINATION: GENERAL: The patient is alert and oriented x3, not in any acute distress. Ill looking, anxious HEENT: Pupils are round and equally reacting to light. EOMI. No scleral icterus. No conjunctival pallor. Normocephalic, atraumatic. No pharyngeal erythema. No thyromegaly. CARDIOVASCULAR: S1 and S2 present. No murmurs, rubs, or gallops. PULMONARY: Chest is clear to auscultation, no wheezing or crackles. ABDOMEN: Soft, nontender, nondistended, normoactive bowel sounds. No palpable organomegaly. Multiple superficial skin lacerations on abdominal MUSCULOSKELETAL: No joint swelling or deformity. EXTREMITIES: No cyanosis, clubbing, or pedal edema. NEUROLOGICAL: Gross neurological examination did not reveal any focal deficits. SKIN: No rashes. Dictation was produced using [employer] dictation software. please excuse any grammatical, word or spelling errors. Patient Condition at Discharge: Good Plan - Discharge Summary Discharge Rx Participant: Yes New Discharge Prescriptions: New Thiamine [Vitamin B-1] 100 mg PO DAILY tab Continue HYDROcodone/APAP 7.5-325MG [[place] 7.5-325] 1 tab PO BID PRN PRN Reason: Pain Tamsulosin [Flomax] 0.4 mg PO DAILY Triazolam 0.25 mg PO HS Losartan Potassium 100 mg PO DAILY Omeprazole [PriLOSEC] 20 mg PO DAILY Dextroamphetamine Sulfate [Dextroamphetamine Sulfate ER] 15 mg PO BID Discharge Medication List HYDROcodone/APAP 7.5-325MG [[place] 7.5-325] 1 tab PO BID PRN 12/05/23 [History] Losartan Potassium 100 mg PO DAILY 12/05/23 [History] Omeprazole [PriLOSEC] 20 mg PO DAILY 12/05/23 [History] Tamsulosin [Flomax] 0.4 mg PO DAILY 12/05/23 [History] Dextroamphetamine Sulfate [Dextroamphetamine Sulfate ER] 15 mg PO BID 12/20/23 [History] Triazolam 0.25 mg PO HS 12/20/23 [History] Thiamine [Vitamin B-1] 100 mg PO DAILY tab 04/07/24 [Rx] Follow up Appointment(s)/Referral(s): Joseph Steele [Primary Care Provider] - 1-2 days Discharge Disposition: TRANSFER TO PSYCH HOSP/UNIT
[2024-04-07] MEDS: LORazepam 1 MG TAB PO PRN (12:28)
[2024-04-07 15:25] VITALS: BP 134/85; PULSE 79; RESP 16
== END 2024-04-07 17:38 ==
LOC: EC 14:26 → 3SCARD 18:14
PROVIDERS: ADMIT Hospitalist; ATTEND Hospitalist
DX: T43.622A Poisoning by amphetamines, intentional self-harm, initial encounter (principal); F10.129 Alcohol abuse with intoxication, unspecified; F15.129 Other stimulant abuse with intoxication, unspecified; F12.90 Cannabis use, unspecified, uncomplicated; S31.119A Laceration without foreign body of abdominal wall, unspecified quadrant without penetration into peritoneal cavity, initial encounter; X83.8XXA Intentional self-harm by other specified means, initial encounter; F90.9 Attention-deficit hyperactivity disorder, unspecified type; M62.82 Rhabdomyolysis; N40.1 Benign prostatic hyperplasia with lower urinary tract symptoms; R33.8 Other retention of urine; I10 Essential (primary) hypertension; K21.9 Gastro-esophageal reflux disease without esophagitis; F31.9 Bipolar disorder, unspecified; F25.1 Schizoaffective disorder, depressive type; F17.210 Nicotine dependence, cigarettes, uncomplicated; Y90.7 Blood alcohol level of 200-239 mg/100 ml; Z91.51 Personal history of suicidal behavior; Z79.899 Other long term (current) drug therapy; Z88.0 Allergy status to penicillin; Z88.1 Allergy status to other antibiotic agents; Z88.2 Allergy status to sulfonamides; Z88.6 Allergy status to analgesic agent; Z91.52 Personal history of nonsuicidal self-harm; Z23 Encounter for immunization
CPT/HCPCS: 36415; 51798; 80053; 80143; 80179; 80306; 80320; 81001; 82075; 82550; 83735; 85025; 90471; 90715; 93005; 96374; 96376; 99285

== ENCOUNTER 2024-04-07 17:12 | Inpatient (IN) | payer MEDICAID, OTHER ==
[2024-04-07] MEDS ORDERED: IBUPROFEN 600 MG TAB PO PRN (17:26)
[2024-04-07] MEDS ORDERED: haloperidoL 5 MG TAB PO PRN (17:26)
[2024-04-07] MEDS ORDERED: MAGNESIUM HYDROXIDE 2,400 MG/30 ML CUP PO PRN (17:26)
[2024-04-07] MEDS ORDERED: LORazepam 1 MG TAB PO PRN (17:26)
[2024-04-07] MEDS ORDERED: HALOPERIDOL LACTATE 5 MG/ML 1 ML VIAL IM PRN (17:26)
[2024-04-07] MEDS: TEMAZEPAM 15 MG CAP PO SCH (20:33)
[2024-04-07] MEDS: ACETAMINOPHEN TAB 325 MG TAB PO PRN (20:34)
[2024-04-08] MEDS: NICOTINE 14MG/24HR PATCH TRANSDERM SCH (09:01)
[2024-04-08] MEDS: FOLIC ACID 1 MG TAB PO SCH (09:02)
[2024-04-08] MEDS: PANTOPRAZOLE 40 MG TABLET PO SCH (09:02)
[2024-04-08] MEDS: LOSARTAN 50 MG TAB PO SCH (09:03)
[2024-04-08] MEDS: TAMSULOSIN 0.4 MG CAP.ER.24H PO SCH (09:03)
[2024-04-08] MEDS: MULTIVITAMINS, THERA 1 EACH TAB PO SCH (09:03)
[2024-04-08] MEDS: THIAMINE 100 MG TAB PO SCH (09:03)
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
[2024-04-08 16:33] LABS: Chol/HDL Ratio 4.83 Ratio; LDL Cholesterol,Calculated 116.9 mg/dL (0.0-131.0)
[2024-04-08] MEDS: LORazepam 1 MG TAB PO PRN (16:50)
[2024-04-08] MEDS: ASENAPINE 5 MG TAB SUBLINGUAL SCH (20:31)
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
--- NOTE | 2024-04-11 15:25 | P.PN ---
Progress Note - Text Progress Note Date: 04/11/24 Follow-up Mediation Review Chief Complaint: I feel better. Subjective: The patient was noted that he has been feeling better. He thinks the medications ids working. He attended groups today. The patient not upset about his clothes. He noted that his sister did bring him some clothes. He did not talk about his abdominal pain. Overall, the patient appeared in better spiritstoday. He reported no side effects. He is compliant with medications. The patient has been attending the groups. The interaction with staff and peers is good.. The patient is compliant with treatment recommendations. Leading questions: The patient admitted to Depression and Anxiety. Denied SI or HI. Denied symptoms consistent with psychosis Sleep and Appetite: Fair. Change in family/ living/job/financial/daily routine: No change. Change in medical condition: No change. Change in medications: No change. Side effects from Medications: None. Objective- MSE: Alert and attentive. Orientation times three. Dressed and Groomed: Appropriately. Pleasant and cooperative. Psychomotor Activity: Normal. Speech: Normal in tone, quality, and quantity. Mood: I am feeling good. Affect: Consistent with mood. SI or HI: None. Perceptual disturbance: None. Thought Content: No paranoia noted today. No other delusional thinking noted. Thought Process: Normal. Cognition: Intact Judgment and Insight: Poor. AIMS: Normal. Labs: No new labs. Diagnosis: No change. Plan and Recommendations: Continue current Medications. Monitor MS and side effects of medications and adjust medications accordingly. Provide supportive psychotherapy. The patient provided psychoeducation and advised The patient provided Substance abuse counseling. Smoke cessation therapy. The patient to attend rankin activities. Medication Consent with explanation of risk/benefits and side effects: Explained and obtained.
[2024-04-11] MEDS: LORazepam 1 MG TAB PO PRN (20:33)
--- NOTE | 2024-04-12 14:54 | P.PN ---
Progress Note - Text Interval history: Patient was seen and was directable and agreeable to speak with financial writer. At this time patient denies any suicidal or homicidal ideations intent or plan. Denies any Auditory or visual hallucinations. Patient denies any side effects from the medications and has been compliant with meds. Mental status exam: General Appearance: [Patient appears to be stated age is alert, directable, and cooperative.] Behavior: [No agitated behavior. Patient is calm and directable] Speech: Patient's speech is fluent and nonpressured. Mood/Affect: Mood is improving mildly, affect is congruent and constricted. Suicidality/Homicidality: Patient denies having any suicidal or homicidal ideation intent or plan. Perceptions: Patient denies any auditory or visual hallucinations. Though content/process: [There is no evidence of any delusional thought content and thought process is linear and goal-directed.] Memory and concentration: AOX3, grossly intact for the purposes of this session Judgment and insight: improving mildly Assessment/Plan: Continue with current diagnosis. Patient continues to meet carmen marquez for inpatient psychiatric admission for symptom stabilization and safety.[Patient will be maintained on current psychotropic medication regimen.] Monitor for medication compliance and for any psychotropic medication side effects. Will continue to monitor ongoing response to treatment. Encouraged participation in milieu.
--- NOTE | 2024-04-13 22:47 | P.PN ---
Progress Note - Text Interval history: Patient was seen and was directable and agreeable to speak with video games storywriter. At this time patient denies any suicidal or homicidal ideations intent or plan. Denies any Auditory or visual hallucinations. Patient denies any side effects from the medications and has been compliant with meds. Mental status exam: General Appearance: [Patient appears to be stated age is alert, directable, and cooperative.] Behavior: [No agitated behavior. Patient is calm and directable] Speech: Patient's speech is fluent and nonpressured. Mood/Affect: Mood is improving mildly, affect is congruent and constricted. Suicidality/Homicidality: Patient denies having any suicidal or homicidal ideation intent or plan. Perceptions: Patient denies any auditory or visual hallucinations. Though content/process: [There is no evidence of any delusional thought content and thought process is linear and goal-directed.] Memory and concentration: AOX3, grossly intact for the purposes of this session Judgment and insight: improving mildly Assessment/Plan: Continue with current diagnosis. Patient continues to meet criteria for inpatient psychiatric admission for symptom stabilization and safety.[Patient will be maintained on current psychotropic medication regimen.] Monitor for medication compliance and for any psychotropic medication side effects. Will continue to monitor ongoing response to treatment. Encouraged participation in milieu.
--- NOTE | 2024-04-14 14:02 | P.PN ---
Progress Note - Text Progress Note Date: 04/14/24 Follow-up Mediation Review Chief Complaints: I feel finer. Subjective: The patient was noted that he has been good. He feels that his medications working fine. He noted that he is not having any delusions or hallucinations. His sister feels that the patient is doing. She is concern about his getting stimulants after discharge. It appears, he gets it from his psychiatrist as an out-pt. The patient reported no side effects. He has been compliant with medications. The patient has been attending the groups. The interaction with staff and peers is good. The patient is compliant with treatment recommendations. Leading questions: The patient admitted to Depression and Anxiety. Denied SI or HI. Denied symptoms consistent with psychosis Sleep and Appetite: Good. Change in family/ living/job/financial/daily routine: No change. Change in medical condition: No change. Change in medications: No change. Side effects from Medications: None. Objective- MSE: Alert and attentive. Orientation times three. Dressed and Groomed: Appropriately. Pleasant and cooperative. Psychomotor Activity: Normal. Speech: Normal in tone, quality, and quantity. Mood: I am feeling good. Affect: Consistent with mood. SI or HI: None. Perceptual disturbance: None. Thought Content: No paranoia noted today. No other delusional thinking noted. Thought Process: Normal. Cognition: Intact Judgment and Insight: Poor. AIMS: Normal. Labs: No new labs. Diagnosis: No change. Plan and Recommendations: Continue current Medications. Monitor MS and side effects of medications and adjust medications accordingly. Provide supportive psychotherapy. The patient provided psychoeducation and advised The patient provided Substance abuse counseling. Smoke cessation therapy. The patient to attend rankin activities. Medication Consent with explanation of risk/benefits and side effects: Explained and obtained.
[2024-04-14] MEDS: MAG HYDROX/AL HYDROX/SIMETH 355 ML BOTTLE PO PRN (16:02)
[2024-04-15 07:13] VITALS: BP 129/81; PULSE 69; RESP 16; TEMP 97.6
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
== END 2024-04-15 13:50 | disposition home or self-care (01) | DRG 750 ==
LOC: 3MHU 18:09
PROVIDERS: ADMIT Psychiatry & Neurology Psychiatry; ATTEND Psychiatry & Neurology Psychiatry
DX: F25.1 Schizoaffective disorder, depressive type (principal); F10.129 Alcohol abuse with intoxication, unspecified; F17.200 Nicotine dependence, unspecified, uncomplicated; Z71.6 Tobacco abuse counseling; G43.909 Migraine, unspecified, not intractable, without status migrainosus; K44.9 Diaphragmatic hernia without obstruction or gangrene; T43.622D Poisoning by amphetamines, intentional self-harm, subsequent encounter; F90.9 Attention-deficit hyperactivity disorder, unspecified type; K21.9 Gastro-esophageal reflux disease without esophagitis; F41.9 Anxiety disorder, unspecified; I10 Essential (primary) hypertension; J45.909 Unspecified asthma, uncomplicated; M62.82 Rhabdomyolysis; M79.7 Fibromyalgia; N40.1 Benign prostatic hyperplasia with lower urinary tract symptoms; R33.8 Other retention of urine; R45.851 Suicidal ideations; Z79.899 Other long term (current) drug therapy; Z28.310 Unvaccinated for COVID-19; Z28.21 Immunization not carried out because of patient refusal; Z60.2 Problems related to living alone; Z88.6 Allergy status to analgesic agent; Z88.5 Allergy status to narcotic agent; Z88.0 Allergy status to penicillin; Z88.2 Allergy status to sulfonamides
CPT/HCPCS: 80061; 83036; 84443

== ENCOUNTER 2024-07-29 17:19 | Emergency (ER) | payer OTHER ==
--- NOTE | 2024-07-29 18:27 | XR ---
EXAMINATION TYPE: XR chest 2V DATE OF EXAM: 07/29/2024 6:12 PM COMPARISON: 04/12/2021 CLINICAL INDICATION: Male, 59 years old with history of difficulty breathing, TECHNIQUE: XR chest 2V view(s) obtained. FINDINGS: The heart size is normal. The pulmonary vasculature is normal. The lungs are clear. IMPRESSION: 1. No acute pulmonary process. [facility], , 07/29/2024 6:25 PM
[2024-07-29 18:42] VITALS: RESP 18
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
[2024-07-29] MEDS: ACETAMINOPHEN TAB 325 MG TAB PO STA (19:32)
[2024-07-29 20:04] LABS: Basophils # (A) 0.1 k/uL (0-0.2); Basophils % (A) 1 %; Eosinophils # (A) 0.2 k/uL (0-0.7); Eosinophils % (A) 2 %; HGB 14.7 gm/dL (13.0-17.5); Lymphocytes # (A) 2.8 k/uL (1.0-4.8); Lymphocytes % (A) 25 %; MCH 33.1 pg (25.0-35.0); MCHC 34.3 g/dL (31.0-37.0); MCV 96.5 fL (80.0-100.0); Mean Platelet Volume 7.6; Monocytes # (A) 0.8 k/uL (0-1.0); Monocytes % (A) 7 %; Neutrophils # (A) 7.1 k/uL (1.3-7.7); Neutrophils % (A) 64 %; Platelet Count 226 k/uL (150-450); RBC 4.46 m/uL (4.30-5.90); RDW 12.6 % (11.5-15.5); WBC 11.2 k/uL (3.8-10.6)
[2024-07-29 20:26] LABS: INR 0.9 (<1.2); Partial Thromboplastin Time 25.3 sec (22.0-30.0); Prothrombin Time 9.8 sec (10.0-12.5)
[2024-07-29 20:33] LABS: ALT 56 U/L (4-49); AST 24 U/L (17-59); African American GFR (CKD) >90 (>60 ml/min/1.73 sqM); Albumin 3.9 g/dL (3.5-5.0); Alkaline Phosphatase 124 U/L (38-126); Anion Gap 10 mmol/L; Blood Urea Nitrogen 20 mg/dL (9-20); Carbon Dioxide 22 mmol/L (22-30); Chloride 104 mmol/L (98-107); Glucose 113 mg/dL (74-99); Non-African American GFR(CKD) >90 (>60 ml/min/1.73 sqM); Potassium 4.9 mmol/L (3.5-5.1); Sodium 136 mmol/L (137-145); Total Bilirubin 0.3 mg/dL (0.2-1.3); Total Protein 6.7 g/dL (6.3-8.2)
[2024-07-29 21:20] VITALS: BP 130/81; PULSE 90; TEMP 98
== END 2024-07-29 21:18 | disposition home or self-care (01) ==
LOC: EC 17:19
DX: J01.90 Acute sinusitis, unspecified (principal); B97.89 Other viral agents as the cause of diseases classified elsewhere; I45.10 Unspecified right bundle-branch block; F17.200 Nicotine dependence, unspecified, uncomplicated; Z88.0 Allergy status to penicillin; Z88.1 Allergy status to other antibiotic agents; Z88.2 Allergy status to sulfonamides; Z88.6 Allergy status to analgesic agent; Z88.8 Allergy status to other drugs, medicaments and biological substances
CPT/HCPCS: 36415; 71046; 80053; 84484; 85025; 85379; 85610; 85730; 87636; 93005; 99285; 99406

== ENCOUNTER 2024-08-02 16:39 | Emergency (ER) | payer OTHER ==
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
[2024-08-02] MEDS: HYDROmorphone 1 MG/ML 1 ML SYRINGE IVP STA (17:00)
[2024-08-02] MEDS: ONDANSETRON 4 MG/2 ML VIAL IVP STA (17:00)
[2024-08-02] MEDS: SODIUM CHLORIDE 0.9% 500 ML 500 ML IV STA (17:00)
[2024-08-02] MEDS: PANTOPRAZOLE 40 MG/10 ML VIAL IVP STA (17:00)
[2024-08-02] MEDS: SODIUM CHLORIDE 0.9% 1,000 ML IV STA (17:00)
[2024-08-02 17:03] LABS: Basophils # (A) 0.1 k/uL (0-0.2); Basophils % (A) 1 %; Eosinophils # (A) 0.2 k/uL (0-0.7); Eosinophils % (A) 2 %; HCT 47.2 % (39.0-53.0); HGB 16.2 gm/dL (13.0-17.5); Lymphocytes % (A) 31 %; MCHC 34.3 g/dL (31.0-37.0); MCV 96.2 fL (80.0-100.0); Mean Platelet Volume 7.6; Monocytes # (A) 0.6 k/uL (0-1.0); Monocytes % (A) 6 %; Neutrophils # (A) 5.7 k/uL (1.3-7.7); Neutrophils % (A) 58 %; Platelet Count 285 k/uL (150-450); RDW 12.6 % (11.5-15.5); WBC 9.8 k/uL (3.8-10.6)
[2024-08-02 17:11] LABS: ALT 57 U/L (4-49); AST 33 U/L (17-59); African American GFR (CKD) >90 (>60 ml/min/1.73 sqM); Albumin 4.6 g/dL (3.5-5.0); Alkaline Phosphatase 113 U/L (38-126); Amylase 55 U/L (30-110); Anion Gap 15 mmol/L; Blood Urea Nitrogen 22 mg/dL (9-20); Calcium 9.5 mg/dL (8.4-10.2); Carbon Dioxide 20 mmol/L (22-30); Chloride 104 mmol/L (98-107); Glucose 109 mg/dL (74-99); Lipase 112 U/L (23-300); Non-African American GFR(CKD) 88 (>60 ml/min/1.73 sqM); Potassium 4.4 mmol/L (3.5-5.1); Sodium 139 mmol/L (137-145); Total Bilirubin 0.6 mg/dL (0.2-1.3); Total Protein 7.7 g/dL (6.3-8.2)
[2024-08-02 17:17] LABS: Appearance,Urine Clear (Clear); Bilirubin,Urine Negative (Negative); Blood,Urine Negative (Negative); Color,Urine Yellow; Glucose,Urine (UA) Negative (Negative); Ketones,Urine Negative (Negative); Leukocyte Esterase,Urine Negative (Negative); Nitrite,Urine Negative (Negative); PH, Urine 5.5 (5.0-8.0); Protein,Urine Trace (Negative); Specific Gravity,Urine 1.024 (1.001-1.035); Urobilinogen,Urine <2.0 mg/dL (<2.0)
--- NOTE | 2024-08-02 17:32 | XR ---
EXAMINATION TYPE: XR KUB DATE OF EXAM: 08/02/2024 5:11 PM COMPARISON: CLINICAL INDICATION: Male, 59 years old with history of abdominal pain; [facility] TECHNIQUE: One radiographic view of the abdomen was obtained. FINDINGS: The bowel gas pattern is nonspecific without dilated loops of small or large bowel. . Fecal material and gas are demonstrated throughout the colon and rectum. There is no evidence for organome rocio or pneumoperitoneum. No acute osseous process. No abnormal calcifications are present. Right u pper quadrant cholecystectomy clips. Mild degeneration changes of the hips. IMPRESSION: Nonspecific bowel gas pattern without radiographic evidence for acute process. [facility], , 08/02/2024 5:30 PM
[2024-08-02 18:24] VITALS: BP 150/96; PULSE 86; RESP 18; TEMP 98.5
== END 2024-08-02 18:27 | disposition home or self-care (01) ==
LOC: EC 16:39
DX: R10.13 Epigastric pain (principal); F17.200 Nicotine dependence, unspecified, uncomplicated; Z88.0 Allergy status to penicillin; Z88.8 Allergy status to other drugs, medicaments and biological substances; Z88.6 Allergy status to analgesic agent; Z88.2 Allergy status to sulfonamides
CPT/HCPCS: 36415; 80053; 82150; 83690; 85025; 81003; 74018; 99284; 96374; 96375 ×2; 96361; J2405; J1171; J2470

== ENCOUNTER 2025-01-29 19:32 | Inpatient (IN) | payer OTHER ==
[2025-01-29 20:24] LABS: Barbiturate Screen,Urine Not Detected (NotDetected); Benzodiazepines Screen,Urine Not Detected (NotDetected); Opiate Screen,Urine Not Detected (NotDetected); Oxycodone Screen, Urine Not Detected (NotDetected); Phencyclidine Screen,Urine Not Detected (NotDetected); Tricyclic Antidepressant,Urine Not Detected (NotDetected); Urn Cannabinoid Scrn Detected (NotDetected)
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
[2025-01-29 21:15] LABS: Bilirubin,Urine Negative (Negative); Blood,Urine Small (Negative); Color,Urine Yellow; Glucose,Urine (UA) Negative (Negative); Hyaline Casts,Urine 1 /lpf (0-2); Ketones,Urine Negative (Negative); Leukocyte Esterase,Urine Negative (Negative); Mucus,Urine Many /hpf; Nitrite,Urine Negative (Negative); PH, Urine 6.0 (5.0-8.0); Protein,Urine Trace (Negative); RBC,Urine 4 /hpf (0-5); Specific Gravity,Urine 1.027 (1.001-1.035); Urobilinogen,Urine 2.0 mg/dL (<2.0); WBC,Urine 3 /hpf (0-5)
[2025-01-29 22:03] LABS: RSV Not Detected (Not Detectd)
[2025-01-29] MEDS: oxyCODONE-APAP 10-325MG 1 EACH TAB PO STA (22:11)
[2025-01-29] MEDS ORDERED: MAGNESIUM HYDROXIDE 2,400 MG/30 ML CUP PO PRN (22:44)
[2025-01-29] MEDS ORDERED: HALOPERIDOL LACTATE 5 MG/ML 1 ML VIAL IM PRN (22:48)
[2025-01-29] MEDS: LORazepam 1 MG TAB PO PRN (23:59)
[2025-01-30 08:18] LABS: Basophils # (A) 0.09 10*3/uL (0.00-0.10); Basophils % (A) 0.7 %; Eosinophils # (A) 0.29 10*3/uL (0.04-0.35); Eosinophils % (A) 2.4 %; HCT 45.8 % (39.6-50.0); HGB 16.3 g/dL (13.0-17.0); Lymphocytes # (A) 3.22 10*3/uL (0.90-5.00); Lymphocytes % (A) 26.1 %; MCH 33.1 pg (27.0-32.0); MCHC 35.6 g/dL (32.0-37.0); MCV 92.9 fL (80.0-97.0); Monocytes # (A) 1.06 10*3/uL (0.20-1.00); Monocytes % (A) 8.6 %; Neutrophils # (A) 7.64 10*3/uL (1.80-7.70); Neutrophils % (A) 62.0 %; Platelet Count 237 10*3/uL (140-440); RBC 4.93 10*6/uL (4.40-5.60); RDW 12.8 % (11.5-14.5); WBC 12.33 10*3/uL (4.50-10.00)
[2025-01-30 08:35] LABS: ALT 41 U/L (4-49); AST 30 U/L (17-59); African American GFR (CKD) >90 (>60 ml/min/1.73 sqM); Albumin 4.5 g/dL (3.5-5.0); Alkaline Phosphatase 108 U/L (38-126); Anion Gap 13 mmol/L; Blood Urea Nitrogen 19 mg/dL (9-20); Calcium 9.7 mg/dL (8.4-10.2); Carbon Dioxide 23 mmol/L (22-30); Chloride 105 mmol/L (98-107); Glucose 108 mg/dL (74-99); Non-African American GFR(CKD) 80 (>60 ml/min/1.73 sqM); Potassium 4.1 mmol/L (3.5-5.1); Sodium 141 mmol/L (137-145); Total Protein 7.0 g/dL (6.3-8.2)
[2025-01-30] MEDS: NICOTINE 14MG/24HR PATCH TRANSDERM SCH (09:09)
[2025-01-30] MEDS: PANTOPRAZOLE 40 MG TABLET PO SCH (09:09)
--- NOTE | 2025-01-30 09:54 | XR ---
EXAMINATION TYPE: XR chest 1V portable DATE OF EXAM: 01/30/2025 9:48 AM COMPARISON: 07/29/2024 CLINICAL INDICATION: Male, 59 years old with history of shortness of breath, , FINDINGS: Heart normal size. Atherosclerotic arch calcifications. There is mild hyperinflation. Mild interstiti al density similar to slightly increased. No consolidation or pleural effusion. IMPRESSION: COPD. Interstitial prominence slightly increased and could reflect superimposed acute bronchitis or a prominent component of chronic bronchitis. No focal infiltrate seen. [facility], , 01/30/2025 9:51 AM
[2025-01-30 11:01] VITALS: BMI 29.5
[2025-01-30] MEDS: amLODIPine 10 MG TAB PO SCH (11:13)
[2025-01-30] MEDS ORDERED: OLANZapine 5 MG TAB PO PRN (12:10)
[2025-01-30] MEDS ORDERED: HALOPERIDOL LACTATE 5 MG/ML 1 ML VIAL IM PRN (12:16)
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
[2025-01-30] MEDS: oxyCODONE-APAP 10-325MG 1 EACH TAB PO PRN (12:42)
[2025-01-30] MEDS: HYDROCORTISONE SUPPOSITORY 25 MG SUPP RECTAL SCH (12:43)
[2025-01-30] MEDS: ESCITALOPRAM 10 MG TAB PO SCH (12:44)
[2025-01-30] MEDS ORDERED: ALBUTEROL NEBULIZED 2.5 MG/3 ML INHALATION PRN (13:03)
[2025-01-30] MEDS: QUEtiapine 25 MG TAB PO SCH (13:10)
[2025-01-30] MEDS: ONDANSETRON ODT 4 MG TAB PO PRN (13:19)
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
[2025-01-30] MEDS: SYMBICORT 160-4.5 MCG INHALER INHALATION SCH (21:43)
[2025-01-30] MEDS: QUEtiapine 50 MG TAB PO SCH (21:44)
[2025-01-30] MEDS: LOSARTAN 25 MG TAB PO SCH (22:23)
[2025-01-31] MEDS ORDERED: ALBUTEROL INHALER 60 PUFF/8 GM INHALER (MHU) INHALATION PRN (07:06)
[2025-01-31] MEDS: LOSARTAN 25 MG TAB PO SCH (12:58)
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
[2025-01-31] MEDS: MAG HYDROX/AL HYDROX/SIMETH 355 ML BOTTLE PO PRN (20:24)
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
--- NOTE | 2025-02-01 12:57 | XR ---
EXAMINATION TYPE: XR abdomen 1V DATE OF EXAM: 02/01/2025 COMPARISON: KUB radiograph 08/02/2024 HISTORY: Abdominal pain TECHNIQUE: Single supine view of the abdomen is obtained FINDINGS: Small bowel demonstrates no evidence for dilatation or air fluid levels. Gas and fecal material is seen in non-distended colon. No convincing evidence for pneumoperitoneum. No unusual calcifications. Cholecystectomy clips in the right upper quadrant. The lung bases are clear. The osseous structures are intact. Degenerative disc disease of the lower lumbar spine. IMPRESSION: Overall nonobstructive bowel gas pattern. [facility], , 02/01/2025 12:54 PM
[2025-02-01] MEDS: DICYCLOMINE 10 MG CAP PO PRN (14:15)
--- NOTE | 2025-02-01 14:43 | P.PN ---
Progress Note - Text Progress Note Date: 02/01/25 Dictation was produced using [employer] dictation software. Please excuse any grammatical, word or spelling errors. Interval history: Patient was seen in his room and was directable and agreeable to speak with the telegraphic typewriter mechanic for psychiatric follow-up. The patient states that he is not feeling good, reported that he has abdominal discomfort that the medical doctor saw him today and he was given some medication which she just took. Reported that his mood is " fine, anxious a little," reported depression and anxiety to be at the moderate side, he rated depression at 45 per 10, and anxiety at 6-7 per 10 and reported that he is anxious about his medical issues and not sure what is going on in his testicles. He denied any current suicidal, self-harm or homicidal thoughts or behavior, auditory or visual hallucination. Reported that he slept well overnight, and reported he has been eating his meal however reported that he threw up earlier today. An abdominal x-ray was done today and did not show any abnormalities " overall nonobstructive bowel gas pattern." He has been compliant with his medication, denied any current side effects, denied any muscle stiffness, rigidity, abnormal movement, or drooling. He has no other concern at this time. Mental status exam: General Appearance: Patient appears to be at stated age, wearing home clothes, with poor hygiene, and grooming. Behavior: Patient is laying in bed without any agitated behavior. Appears to be in distress, fixated on abdominal discomfort Speech: Patient's speech is fluent and nonpressured. Mood/Affect: Patient reports their mood is depressed and anxious, affect is congruent Suicidality/Homicidality: Patient denies having any homicidal ideation intent or plan. Denies any suicidal ideations intent or plan Perceptions: Patient denies any visual hallucinations and denies any auditory hallucinations Though content/process: Patient is fixated on delusions, poor reality testing. Memory and concentration: AOX3, grossly intact for the purposes of this session. Judgment and insight: Poor Schizoaffective disorder, bipolar type Cannabis use disorder Nicotine dependence Rule out somatic symptom disorder Assessment/Plan: Continue with current diagnosis. Patient continues to meet criteria for inpatient psychiatric admission for symptom stabilization and safety. Patient will be maintained on current psychotropic medication regimen which include Seroquel 25 mg p.o. daily and 50 mg p.o. at bedtime, and Lexapro 10 mg p.o. daily. Psychoeducation was provided, risk, benefit and side effect discussed. Patient denied any current side effects, denied any muscle stiffness, rigidity, abnormal movement, or drooling, will continue with the same medication today, may consider adjusting the Seroquel dose pending the patient progress and toleration. Will continue to monitor for the patient abdominal discomfort, medicine on board. Monitor for medication compliance and for any psychotropic medication side effects. Will continue to monitor ongoing response to treatment. Encouraged participation in milieu.
[2025-02-01] MEDS: PROCHLORPERAZINE 5 MG TAB PO PRN (14:48)
[2025-02-01] MEDS: PANTOPRAZOLE 40 MG TABLET PO SCH (18:03)
[2025-02-02] MEDS: ONDANSETRON ODT 4 MG TAB PO PRN (07:48)
--- NOTE | 2025-02-02 12:57 | P.PN ---
Progress Note - Text Progress Note Date: 02/02/25 Interval history: Patient was seen today for psychiatric follow-up. Patient was wandering the h allway, had a shower this morning and agreeable to speak to display card writer in his room. Claims that he is still frustrated by his "testicle cords" have not been fixed yet. Claims that he needs further help and has seen a neurologist however not for quite some time. He continues to be a bit anxious, denies any depression at this time. Mainly preoccupied somatically during conversation. Denies any luiza tory or visual hallucinations denies any suicidal or homicidal ideations intent or plan. Not reporting any issues with his medications. Claims that he sleeps about 6 or 7 hours at nighttime. Not going to many groups. Continues to have fairly poor insight MENTAL STATUS EXAM: General Appearance: Patient appears to be wearing hospital gown, stated age is alert, attempts to cooperate. Patient appears to have improving hygiene and grooming. Behavior: Patient is seated without any agitated behavior. Appears to be in mild distress Speech: Patient's speech is fluent and nonpressured. Mood/Affect: Patient reports their mood is improving mildly, affect is congruent Suicidality/Homicidality: Patient denies having any homicidal ideation intent or plan. Denies any suicidal ideations intent or plan Perceptions: Patient denies any visual hallucinations and denies any auditory hallucinations Though content/process: Patient is perseverating on delusions, this appears to be chronic. Denies any paranoia Memory and concentration: AOX3, grossly intact for the purposes of this session Judgment and insight: Chronically poor, improving mildly IMPRESSIONS: Schizoaffective disorder, bipolar type Cannabis use disorder Nicotine dependence PLAN: -Patient is admitted under voluntary status to MHU for stabilization of psychiatric symptoms and safety. Patient has signed adult voluntary form and has signed medication consent and is placed in patient's chart. -Medications : Increase Seroquel 25 mg daily + 100 mg nightly for mood stabilization/psychosis/insomnia. Lexapro 10 mg daily for mood/anxiety -Ativan and Haldol PRN for agitation/aggression -will ensure that patient has follow up with his urologist upon discharge. -NRT -nicotine patch -SW on board for discharge planning. Encourage patient to participate in groups to work on coping skills. hopeful for discharge in 1-2 days if patient is improving.
[2025-02-02] MEDS: ACETAMINOPHEN TAB 325 MG TAB PO PRN (15:03)
[2025-02-02] MEDS: QUEtiapine 100 MG TAB PO SCH (21:56)
[2025-02-02 23:55] VITALS: TEMP 98.6
[2025-02-03 10:50] VITALS: BP 117/79; PULSE 109; RESP 16
--- NOTE | 2025-02-03 11:02 | P.DS ---
Providers Date of admission: 01/29/25 22:40 Expected date of discharge: 02/03/25 Attending physician: Meet Mills MD Consults: 01/29/25 22:44 Consult Physician Routine Consulting Provider: [facility] Hospitalists Consult Reason/Comments: H&P Do you want consulting provider notified?: Yes Primary care physician: Joseph Landeros Kut - Discharge Diagnosis(es) (1) Schizoaffective disorder, bipolar type Current Visit: Yes Status: Acute Priority: High (2) Cannabis use disorder Current Visit: Yes Status: Acute Priority: Medium (3) Nicotine dependence Current Visit: Yes Status: Acute Priority: Low Hospital Course: Admission HPI: Admission note was completed by specifications writer "Patient is a 59-year-old male, currently lives with his brother in a house, he is single he has no kids, collects SSI. Patient presented to the hospital yesterday brought in by police, he was petitioned, he was evaluated by EPS and according to note "Pt was brought in and petitioned by police. Petition states, "approached neighbor with a rock accussed her of a bothced medical procedure on his testicals". Pt informed triage that he was having HI towards whomever put a probe in his testicles, he believes that his neighbor did it. Pt states that he took a rock over to his neighbors house because, "I wanted to see what she looked like, it's looked like the girl who did it, if it's not her then it's the one around the way...guarenteed". "They caused some pelvic floor dysfunction, my testicles everytime I look down are just getting smaller". Pt is convinced that this medical tech ruined his testicles and lives in the neighbor gale and he is after them. He is restless during assessment and slighty hyperverbal and disorganized. Pt states he is not eating much and not sleeping more than 3 hours a night. Pt denies SI or hallucinations. Pt does have paranoid delusions and admitted to multiple staff that he has HI towards and neighbor and he threatened them with a rock tonight. Pt is a potential harm to others. Pt denies using etoh, admits to occasional marijuana use. Denies having access to guns or weapons. " The patient was seen today for psychiatric evaluation. Patient appeared to be an mild distress and claims that he had hemorrhoids. He explained that he got brought into the hospital by police because "she called the egg producer on me". Claims that he went to see this "girl" that lives on his street that he believed came to the hospital to do an ultrasound on his testicles and "moved to my testicle cord" and he has been having problems since then. Claims that he approached her and appeared to berry picker a rock however states that "I was not erythroid at her I was just acting like that". He claims that she got scared and called the police on him. He claims that he has been having difficulties with his medical issues including dealing with the hemorrhoids. Claims that he does have elevated anxiety and also depression at this time. Claims that his sleep and appetite are poor.. Patient denies any suicidal or homicidal ideations intent or plan. At this time patient denies any auditory or visual hallucinations. Patient denies any flight of ideas racing thoughts and increased in goal directed behavior. Patient admits to using marijuana occasionally, also smokes cigarettes. Denies any other recreational drug use. UDS is positive for amphetamines and THC" Hospital course: Upon admission to the unit patient was directable and agreeable to commence treatment and signed adult voluntary form. Patient was initially bizarre, delusional however with time and treatment patient got along well with other patients on the unit and followed unit protocol. Patient was compliant with the medications and denied any side effects throughout hospital course. Patient was started on Seroquel increased to a dose of 25 mg daily +100 mg nightly for mood stabilization/psychosis/insomnia, Lexapro 10 mg daily for mood/anxiety. Patient spoke of his stressors however did not participate much in group/activity therapy and mainly kept to themselves during hospitalization. Patient was also seen by medical team for history and physical exam. Throughout the course of the hospitalization patient gradually improved with regards to mood, anxiety, psychosis, sleep and returned back to their baseline level of functioning. On the day of discharge patient denied any suicidal or homicidal ideations intent or plan denied any auditory or visual hallucinations. Patient endorsed wanting to live for his health and his future. The patient denied any access to guns or weapons. Patient denied any paranoia and did not endorse any delusions. Patient does have a significant history of substance abuse and was counseled on abstaining from all substances including alcohol and marijuana. Patient elected to do outpatient substance use treatment program through their outpatient provider. Patient was also counseled on the medications and need for regular compliance and was encouraged to follow-up with their outpatient appointment for mental health and also for primary care. Prior to discharge a family meeting will be arranged by school social worker to answer any questions and ensure safety upon discharge incuding making sure that guns/weapons are either removed from the home or locked away. Mental status exam: General Appearance: Patient appears to be stated age is alert, pleasant, and cooperative. Patient is in no acute distress and has improved hygiene and grooming Behavior: Patient is calmly seated without any agitated behavior. Speech: Patient's speech is fluent and nonpressured. Mood/Affect: Patient reports their mood is "better", affect is congruent and euthymic. Suicidality/Homicidality: Patient denies having any suicidal or homicidal ideation intent or plan. Perceptions: Patient denies any auditory or visual hallucinations. Though content/process: There is no evidence of any delusional thought content and thought process is linear and goal-directed. Memory and concentration: AOX3, grossly intact for the purposes of this session. Can spell "WORLD" backwards correctly. Judgment and insight: Chronically poor, however has improved with guarded prognosis Impression: Schizoaffective disorder bipolar type cannabis use disorder Nicotine dependence Plan: -Continue with discharge today as patient has improved and stabilized psychiatrically and is not currently an imminent threat to themself and/or others. Patient will remain at chronically elevated risk for harm to self and/or others due to their impulsivity and substance abuse. -Continue medications: Lexapro 10 mg daily for mood/anxiety, Seroquel 25 mg daily +100 mg nightly for mood stabilization/psychosis/insomnia. -Patient was counseled on the need for medication compliance and appropriate follow-up at mental health and also primary care for medical issues. Patient verbalized understanding and agreed. -Social work to help coordinate patients discharge today. also to ensure safe home environment that guns/weapons are either removed from the home or locked away. Social work also to arrange for patients follow up appointments for psychiatric care along with follow up with primary care provider. -Patient counseled on abstaining from recreational drugs and marijuana and alcoh ol. Was informed/educated on the adverse effects on their physical and mental health. Patient verbally agreed and understood. Patient was offered substance abuse treatment however declined at this time. -Patient was instructed to return to the hospital or seek immediate medical care if their psychiatric or medical symptoms do worsen or reoccur. Allergies Allergy/AdvReac Type Severity Reaction Status Date / Time trimethoprim [From Bactrim] Allergy Severe Hives, Verified 01/29/25 20:54 throat swelling amoxicillin trihydrate Allergy rash/hivs Verified 01/29/25 20:54 [From Augmentin] aripiprazole [From Abilify] Allergy Rash/Hives Verified 01/29/25 20:54 brexpiprazole [From Rexulti] Allergy Itching Verified 01/29/25 20:54 ketorolac [From Toradol] Allergy Rash/Hives Verified 01/29/25 20:54 lurasidone [From Latuda] Allergy Itching Verified 01/29/25 20:54 olanzapine [From Zyprexa] Allergy hives Verified 01/29/25 20:54 Penicillins Allergy Hives, Verified 01/29/25 20:54 throat swelling potassium clavulanate Allergy Rash/Hives Verified 01/29/25 20:54 [From Augmentin] pregabalin [From Lyrica] Allergy feet Verified 01/29/25 20:54 swelling sulfamethoxazole Allergy Hives, Verified 01/29/25 20:54 [From Bactrim] throat swelling aspirin AdvReac Dizzy, Verified 01/29/25 20:54 lightheaded atomoxetine [From Strattera] AdvReac twitching Verified 01/29/25 20:54 and spaced out erythromycin lactobionate AdvReac Abdominal Verified 01/29/25 20:54 [From Erythrocin] Pain mirtazapine [From Remeron] AdvReac hyper, Verified 01/29/25 20:54 couldn't control self tamsulosin HCl [From Flomax] AdvReac patient Verified 01/29/25 20:54 denies reaction Laboratory Results WBC 12.33 10*3/uL (4.50-10.00) H 01/30/25 07:39 RBC 4.93 10*6/uL (4.40-5.60) 01/30/25 07:39 Hgb 16.3 g/dL (13.0-17.0) 01/30/25 07:39 Hct 45.8 % (39.6-50.0) 01/30/25 07:39 MCV 92.9 fL (80.0-97.0) 01/30/25 07:39 MCH 33.1 pg (27.0-32.0) H 01/30/25 07:39 MCHC 35.6 g/dL (32.0-37.0) 01/30/25 07:39 Plt Count 237 10*3/uL (140-440) 01/30/25 07:39 MPV 10.5 fL (9.5-12.2) 01/30/25 07:39 Immature Gran % (Auto) 0.2 % 01/30/25 07:39 Neutrophils % 62.0 % 01/30/25 07:39 Lymphocytes % 26.1 % 01/30/25 07:39 Monocytes % 8.6 % 01/30/25 07:39 Eosinophils % 2.4 % 01/30/25 07:39 Basophils % 0.7 % 01/30/25 07:39 Immature Gran # 0.03 10*3/uL (0.00-0.04) 01/30/25 07:39 Neutrophils # 7.64 10*3/uL (1.80-7.70) 01/30/25 07:39 Lymphocytes # 3.22 10*3/uL (0.90-5.00) 01/30/25 07:39 Monocytes # 1.06 10*3/uL (0.20-1.00) H 01/30/25 07:39 Eosinophils # 0.29 10*3/uL (0.04-0.35) 01/30/25 07:39 Basophils # 0.09 10*3/uL (0.00-0.10) 01/30/25 07:39 Sodium 141 mmol/L (137-145) 01/30/25 07:39 Potassium 4.1 mmol/L (3.5-5.1) 01/30/25 07:39 Chloride 105 mmol/L (98-107) 01/30/25 07:39 Carbon Dioxide 23 mmol/L (22-30) 01/30/25 07:39 Anion Gap 13 mmol/L 01/30/25 07:39 BUN 19 mg/dL (9-20) 01/30/25 07:39 Creatinine 1.02 mg/dL (0.66-1.25) 01/30/25 07:39 Est GFR (CKD-EPI)AfAm >90 (>60 ml/min/1.73 sqM) 01/30/25 07:39 Est GFR (CKD-EPI)NonAf 80 (>60 ml/min/1.73 sqM) 01/30/25 07:39 Glucose 108 mg/dL (74-99) H 01/30/25 07:[address] Glu mg/dL 123 mg/dL 01/30/25 07:39 Hemoglobin A1c 5.9 % (<=6.0) 01/30/25 07:39 Calcium 9.7 mg/dL (8.4-10.2) 01/30/25 07:39 Total Bilirubin 0.7 mg/dL (0.2-1.3) 01/30/25 07:39 AST 30 U/L (17-59) 01/30/25 07:39 ALT 41 U/L (4-49) 01/30/25 07:39 Alkaline Phosphatase 108 U/L (38-126) 01/30/25 07:39 Total Protein 7.0 g/dL (6.3-8.2) 01/30/25 07:39 Albumin 4.5 g/dL (3.5-5.0) 01/30/25 07:39 TSH 1.980 mIU/L (0.465-4.680) 01/30/25 07:39 Urine Color Yellow 01/29/25 19:55 Urine Appearance Clear (Clear) 01/29/25 19:55 Urine pH 6.0 (5.0-8.0) 01/29/25 19:55 Ur Specific Flushing 1.027 (1.001-1.035) 01/29/25 19:55 Urine Protein Trace (Negative) H 01/29/25 19:55 Urine Glucose (UA) Negative (Negative) 01/29/25 19:55 Urine Ketones Negative (Negative) 01/29/25 19:55 Urine Blood Small (Negative) H 01/29/25 19:55 Urine Nitrite Negative (Negative) 01/29/25 19:55 Urine Bilirubin Negative (Negative) 01/29/25 19:55 Urine Urobilinogen 2.0 mg/dL (<2.0) 01/29/25 19:55 Ur Leukocyte Esterase Negative (Negative) 01/29/25 19:55 Urine RBC 4 /hpf (0-5) 01/29/25 19:55 Urine WBC 3 /hpf (0-5) 01/29/25 19:55 Hyaline Casts 1 /lpf (0-2) 01/29/25 19:55 Urine Mucus Many /hpf (None) H 01/29/25 19:55 Urine Opiates Screen Not Detected (NotDetected) 01/29/25 19:55 Ur Oxycodone Screen Not Detected (NotDetected) 01/29/25 19:55 Urine Methadone Screen Not Detected (NotDetected) 01/29/25 19:55 Ur Barbiturates Screen Not Detected (NotDetected) 01/29/25 19:55 U Tricyclic Antidepress Not Detected (NotDetected) 01/29/25 19:55 Ur Phencyclidine Scrn Not Detected (NotDetected) 01/29/25 19:55 Ur Amphetamines Screen Detected (NotDetected) H 01/29/25 19:55 U Methamphetamines Scrn Not Detected (NotDetected) 01/29/25 19:55 U Benzodiazepines Scrn Not Detected (NotDetected) 01/29/25 19:55 Urine Cocaine Screen Not Detected (NotDetected) 01/29/25 19:55 U Marijuana (THC) Screen Detected (NotDetected) H 01/29/25 19:55 Influenza Type A (PCR) Not Detected (Not Detectd) 01/29/25 21:16 Influenza Type B (PCR) Not Detected (Not Detectd) 01/29/25 21:16 RSV (PCR) Not Detected (Not Detectd) 01/29/25 21:16 SARS-CoV-2 (PCR) Not Detected (Not Detectd) 01/29/25 21:16 Vital Signs Temp 98.6 F 02/02/25 21:00 Pulse 109 H 02/03/25 09:00 Resp 16 02/03/25 09:00 BP 117/79 02/03/25 09:00 Pulse Ox 98 02/02/25 21:00 FiO2 Patient Condition at Discharge: Stable Plan - Discharge Summary Discharge Rx Participant: No New Discharge Prescriptions: New Prochlorperazine [Compazine] 5 mg PO Q12HR PRN 7 Days #14 tab PRN Reason: Nausea And Vomiting Losartan [Cozaar] 25 mg PO BID 30 Days #60 tab amLODIPine [Norvasc] 10 mg PO DAILY 30 Days #30 tab Pantoprazole [Protonix] 40 mg PO AC-BID 30 Days #60 tab QUEtiapine [SEROquel] 25 mg PO DAILY 30 Days #30 tab Budesonide-Formot 160-4.5 Mcg [Symbicort 160-4.5 Mcg Inhaler] 2 puff INHALATION RT-BID 30 Days #1 each Hydrocortisone Suppository [Anusol-Hc] 25 mg RECTAL DAILY 14 Days #14 suppositor Dicyclomine [Bentyl] 10 mg PO BID PRN 30 Days #60 cap PRN Reason: Dyspepsia Nicotine 14Mg/24Hr Patch [Habitrol] 1 patch TRANSDERM DAILY 14 Days #14 patch Escitalopram [Lexapro] 10 mg PO DAILY 30 Days #30 tab QUEtiapine [SEROquel] 100 mg PO HS 30 Days #30 tab witch Luis Carlos [Tucks Medicated Pads] 1 each TOPICAL DAILY PRN 30 Days #30 pad PRN Reason: Hemorrhoids Albuterol Inhaler [Ventolin Hfa Inhaler] 2 puff INHALATION RT-QID PRN each PRN Reason: Shortness Of Breath Or Wheezing Continue oxyCODONE-APAP 10-325MG [Percocet 10-325 mg] 1 tab PO TID Discontinued Dextroamphetamine Sulfate [Dextroamphetamine Sulfate ER] 10 mg PO BID Omeprazole [PriLOSEC] 20 mg PO DAILY Discharge Medication List oxyCODONE-APAP 10-325MG [Percocet 10-325 mg] 1 tab PO TID 01/29/25 [History] Albuterol Inhaler [Ventolin Hfa Inhaler] 2 puff INHALATION RT-QID PRN each 02/03/25 [Rx] Budesonide-Formot 160-4.5 Mcg [Symbicort 160-4.5 Mcg Inhaler] 2 puff INHALATION RT-BID 30 Days #1 each 02/03/25 [Rx] Dicyclomine [Bentyl] 10 mg PO BID PRN 30 Days #60 cap 02/03/25 [Rx] Escitalopram [Lexapro] 10 mg PO DAILY 30 Days #30 tab 02/03/25 [Rx] Hydrocortisone Suppository [Anusol-Hc] 25 mg RECTAL DAILY 14 Days #14 suppositor 02/03/25 [Rx] Losartan [Cozaar] 25 mg PO BID 30 Days #60 tab 02/03/25 [Rx] Nicotine 14Mg/24Hr Patch [Habitrol] 1 patch TRANSDERM DAILY 14 Days #14 patch 02/03/25 [Rx] Pantoprazole [Protonix] 40 mg PO AC-BID 30 Days #60 tab 02/03/25 [Rx] Prochlorperazine [Compazine] 5 mg PO Q12HR PRN 7 Days #14 tab 02/03/25 [Rx] QUEtiapine [SEROquel] 25 mg PO DAILY 30 Days #30 tab 02/03/25 [Rx] QUEtiapine [SEROquel] 100 mg PO HS 30 Days #30 tab 02/03/25 [Rx] amLODIPine [Norvasc] 10 mg PO DAILY 30 Days #30 tab 02/03/25 [Rx] witch Luis Carlos [Tucks Medicated Pads] 1 each TOPICAL DAILY PRN 30 Days #30 pad 02/03/25 [Rx] Follow up Appointment(s)/Referral(s): Claude Vera [Other] - 02/06/25 8:30 am (02/06 @ 08:30) [facility] [NON-STAFF] - 1 Week Patient Instructions/Handouts: How to Stop Smoking (DC), Schizoaffective Disorder (DC), Cannabis Abuse (DC) Activity/Diet/Wound Care/Special Instructions: [facility] Discharge Info Avoid the use of street drugs and alcohol. Take all medications as prescribed. When you are in need of refills on your medications, please contact your outpatient medical provider and/or outpatient psychiatrist. Please go to your scheduled outpatient appointments for aftercare treatment. If symptoms return or become worse, call the crisis line at or and/or visit the nearest emergency room for assistance. National Suicide and Crisis Lifeline - call or text 605.Medical physician recommends to follow up outpatient in 4-6 weeks to have thyroid levels checked again. Recommendations to have an EMG outpatient on bilateral upper extremities for probable bilateral carpal tunnel. Discharge Disposition: HOME SELF-CARE
== END 2025-02-03 13:44 | disposition home or self-care (01) | DRG 761 ==
LOC: EC 19:32 → 3MHU 22:40
PROVIDERS: ADMIT Psychiatry & Neurology Psychiatry; ATTEND Psychiatry & Neurology Psychiatry
DX: F25.0 Schizoaffective disorder, bipolar type (principal); F12.10 Cannabis abuse, uncomplicated; F17.210 Nicotine dependence, cigarettes, uncomplicated; F41.9 Anxiety disorder, unspecified; F90.9 Attention-deficit hyperactivity disorder, unspecified type; J45.909 Unspecified asthma, uncomplicated; I10 Essential (primary) hypertension; K44.9 Diaphragmatic hernia without obstruction or gangrene; R19.7 Diarrhea, unspecified; K29.00 Acute gastritis without bleeding; K21.9 Gastro-esophageal reflux disease without esophagitis; K64.9 Unspecified hemorrhoids; N40.0 Benign prostatic hyperplasia without lower urinary tract symptoms; M79.7 Fibromyalgia; G47.00 Insomnia, unspecified; Z79.891 Long term (current) use of opiate analgesic; Z79.899 Other long term (current) drug therapy; Z88.6 Allergy status to analgesic agent; Z88.0 Allergy status to penicillin; Z88.2 Allergy status to sulfonamides; Z88.8 Allergy status to other drugs, medicaments and biological substances; Z87.828 Personal history of other (healed) physical injury and trauma; Z88.1 Allergy status to other antibiotic agents
CPT/HCPCS: 71045; 74018; 80053; 80306; 81001; 82075; 83036; 84443; 85025; 87636; 93005; 99285

== ENCOUNTER 2025-02-08 21:15 | Emergency (ER) | payer OTHER ==
[2025-02-08 21:45] VITALS: PULSE 96; RESP 18; TEMP 98.5
[2025-02-08 21:46] VITALS: BP 117/80
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
[2025-02-08] MEDS: oxyCODONE-APAP 5-325MG 1 EACH TAB PO STA (23:29)
[2025-02-09] MEDS: LORazepam 1 MG TAB PO STA (01:07)
== END 2025-02-09 01:09 | disposition home or self-care (01) ==
LOC: EC 21:15
DX: F32.A Depression, unspecified (principal); M25.551 Pain in right hip; G89.29 Other chronic pain; I10 Essential (primary) hypertension; F25.9 Schizoaffective disorder, unspecified; F17.200 Nicotine dependence, unspecified, uncomplicated; Z88.0 Allergy status to penicillin; Z88.1 Allergy status to other antibiotic agents; Z88.2 Allergy status to sulfonamides; Z88.6 Allergy status to analgesic agent; Z88.8 Allergy status to other drugs, medicaments and biological substances
CPT/HCPCS: 82075; 99285